=== PATIENT | male | born 1945 | race Caucasian/White ===

== ENCOUNTER 2020-11-11 09:50 | Emergency (ER) | payer OTHER ==
--- OUTSIDE RECORDS SUMMARY | 2020-11-11 09:56 | XMS REPORT | Continuity of Care Document ---
:[address] [facility] t Address [address] [place] [address] Care Team Providers Name Role Phone Jonathan Quevedo MD Primary Care Physician Andrey Stephens Attending Clinician Zaida Kaye Attending Clinician Shirley Sena Attending Clinician CRISTOBAL Attending Clinician Unavailable JUANA Attending Clinician Unavailable MARLON Attending Clinician Unavailable JOAN Attending Clinician Unavailable Victorino Buckner Attending Clinician DERICK Attending Clinician Unavailable Juana Attending Clinician VALVE Attending Clinician Unavailable MARLON Attending Clinician Unavailable Maritza Gamboa Attending Clinician Mikhail Attending Clinician Victorino Buckner Admitting Clinician Juana Admitting Clinician Payers Payer Name Policy Type Policy Number Effective Date Expiration Date S ource Problems Condition Condition Condition Status Onset Resolution Last Treating Co mments Source Name Details Category Date Date Treatment Clinician Date M1.012 - Diagnosis Active 2019-082020-08-03 Memoria PRIMARY 2-14 13:43:00 l OSTEOARTHR M19.012 00:01: Her kaufman ITIS, LEFT - PRIMARY 00 S OSTEOARTHR ITIS, LEFT S Active 08/02/2020 [facility] [place] COMPLETE Diagnosis Active 2019-082020-08-28 M emoria ROTATOR 0-30 11:08:00 l CUFF TEAR COMPLETE 00:00: Her kaufman OR RUPTURE ROTATOR 00 OF CUFF TEAR OR RUPTURE OF Active 0 [facility] M25.572 Diagnosis Active 2019-12-13 Me moria 2- 15:22:00 l M25.572 00:00: Rosalio 00 Active 10/08/2019 [facility] TRANSIENT Diagnosis Active 2018-11-11 Memoria ISHEMIC 2- 21:36:00 l ATTACK/ PT 00:00: Ambrocio n HAS A ST TRANSIENT 00 JU ISHEMIC ATTACK/ PT HAS A ST JU Active 9 [facility] AORTIC Diagnosis Active 2016-082018-10-23 Mem oria STENOSIS 1-16 12:28:00 l AORTIC 00:00: [place] STENOSIS 00 Active 07/05/2017 [facility] PRE Diagnosis Active 2016-082017-07-05 Mem oria ADMIT/*MAC 1-16 15:35:00 l ANESTHESIA PRE 00:00: Ambrocio n */TAVR ADMIT/*MAC 00 PROCEDUR ANESTHESIA */TAVR PROCEDUR Active 07/05/2017 [facility] SOB Diagnosis Active 2016-082017-06-18 Mem oria 0-20 08:58:00 l SOB 00:00: [place] 00 Active 06/08/2017 [facility] I35.0 Diagnosis Active 2017-08-11 Mem oria 7-14 15:37:00 l I35.0 00:00: [place] 00 Active 03/02/2017 [facility] I10 - Diagnosis Active 2015-082016-09-15 Mem oria ESSENTIAL 2-22 16:05:00 l (PRIMARY) I10 - 00:01: Ambrocio navarro HYPERTENSI ESSENTIAL 00 (PRIMARY) HYPERTENSI Active 08/10/2016 [facility] 723 Diagnosis Active 2012-082013-06-09 Mem oria 0-21 19:13:00 l 723 18:00: [place] 00 Active 06/09/2013 [facility] Presence Problem 2019-04-16 Mem oria of cardiac 11:13:02 l pacemaker Presence Her kaufman of cardiac pacemaker 04/16/2019 [facility] Presence Problem 2019-04-16 Mem oria of 11:13:02 l prosthetic Presence He rmdavida heart of valve prosthetic heart valve 04/16/2019 [facility] Bicuspid Problem Resolve 2020-08-06 Me moria aortic d 00:42:23 l valve Bicuspid Ambrocio n (disorder) aortic valve (disorder) Resolved Problem 08/06/2020 [facility], [facility] Chronic Problem Resolve 2020-08-06 Mem oria obstructiv d 00:42:23 l e Chronic Rosalio bronchitis obstructiv (disorder) e bronchitis (disorder) Resolved Problem 08/06/2020 [facility], [facility] Benign Problem Resolve 2020-08-06 Tank ike prostatic d 00:42:23 l hyperplasi Benign Herm davida a prostatic (disorder) hyperplasi a (disorder) Resolved Problem 08/06/2020 [facility] Anemia Problem Resolve 2020-08-06 Tank ike (disorder) d 00:42:23 l Anemia Rosalio (disorder) Resolved Problem 08/06/2020 [facility] Aortic Problem Resolve 2020-08-06 Tank ike valve d 00:42:23 l stenosis Aortic Ambrocio n (disorder) valve stenosis (disorder) Resolved Problem 08/06/2020 [facility] Type B Problem Resolve 2020-08-06 [place] i[place] viral d 00:42:23 l hepatitis Type B Jory nn (disorder) viral hepatitis (disorder) Resolved Problem 08/06/2020 2000, pt states completed treatment [facility] Hypertensi Problem Active 2020-08-06 M emoria ve 00:42:23 l disorder, Rosalio systemic Hypertensi arterial ve (disorder) disorder, systemic arterial (disorder) Active Problem 08/06/2020 [facility] Atrial Problem Active 2020-08-06 Memor ia fibrillati 00:42:23 l on Atrial Rosalio (disorder) fibrillati on (disorder) Active Problem 08/06/2020 [facility] Cardiac Problem Active 2020-08-06 Tank ike pacemaker 00:42:23 l in situ Cardiac Ambrocio n (finding) pacemaker in situ (finding) Active Problem 08/06/2020 [facility] Chronic Problem Active 2020-08-06 Tank ike obstructiv 00:42:23 l e lung Chronic Rosalio disease obstructiv (disorder) e lung disease (disorder) Active Problem 08/06/2020 [facility] Rheumatoid Problem Active 2020-08-06 M emoria arthritis 00:42:23 l (disorder) Ambrocio n Rheumatoid arthritis (disorder) Active Problem 08/06/2020 [facility] Chronic Problem Active 2020-04-29 Tank ike obstructiv 02:45:03 l e Chronic [place] pulmonary obstructiv disease, e unspecifie pulmonary d COPD disease, type unspecifie d COPD type Active Problem 04/29/2020 [facility] CERVICAL Diagnosis Active 2013-06-09 M emoria SPINAL 19:13:00 l STENOSIS CERVICAL Herm davida SPINAL STENOSIS Active [facility] History of History of Problem Resolve [facility] Heart Heart d ity of disease disease [place] [facility] Shortness Shortness Problem Active Uni vers of breath of breath ity of [place] [facility] Essential Essential Problem Active Uni vers (primary) (primary) [place] of hypertens[place] hypertens[place] [facility] Transient Transient Problem Active Uni vers ischemic ischemic ity of attack attack [place] [facility] Carpal Carpal Problem Active 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 [place] [facility] History of Past Illness Condition Condition Condition Status Onset Resolution Last Treating Co mments Source Name Details Category Date Date Treatment Clinician Date Transient Problem 2019-04-16 2019-04-16 Memoria cerebral 2-13 11:13:02 11:13:02 l ischemic 03:49: [place] attack, Transient 08 unspecifie cerebral d ischemic attack, unspecifie d 10/02/2018 04/16/2019 [facility] Allergies, Adverse Reactions, Alerts Allergy Allergy Status Severity Reaction(s) Onset Inactive Treating Comm ents Source Name Type Date Date Clinician No Known DA Active [facility] -[facility] No Known DA Active [facility] Allergie 3 [place] 00:00: [facility] 00 l [facility] No Known No Known Active Memori a Medicati Medicati l on on [place] Allergie Allergie s s Family History Family Member Diagnosis Comments Start Date Stop Date Source Father Family history of Univers ity of cerebrovascular [place] [facility] accident (CVA) Social History Social Habit Start Date Stop Date Quantity Comments Source Sex Assigned At [facility] Social History 2020-07-22 2020-07-22 [facility] 16:30:24 16:30:24 Tobacco use and 2016-08-18 2016-08-18 Never used [facility] remberto - exposure 00:00:00 00:00:00 [facility] Alcohol intake 2016-08-18 2016-08-18 Current [facility] Mohan es - 00:00:00 00:00:00 non-drinker of Medical nter alcohol (finding) History of 2006-08-20 Current smoker [facility] es - tobacco use [facility]00[facility] [facility] Status Start Date Stop Date Source Social History 2017-07-10 11:54:40 2017-07-10 11:54:40 [facility] Medications Ordered Filled Start Stop Current Ordering Indication Dosage Frequency Signature Comments Components Source Medication Medication Date Date Medication? Clinician (SIG) Name Name ceFAZolin + 2019-08 Yes Notes: Tank ike sterile 09-22 (Same As: l water 20 mL 23:00: Ancef, Herm davida 00 Kefzol) MEDICATION WASTE Product Size: 1000 mg Product Wasted: ___ mg clopidogrel 2019-08 Yes 75 mg = 1 M emoria 75 mg oral 2-03 tab, PO, l tablet 16:24: Daily, Rosalio 00 last dose 07/30/20 per MD, # 30 tab, 0 Refill(s) Albuterol 2019-08 Yes INHALATION Me moria (Eqv-ProAir 2-03 , PRN, 0 l HFA) 90 16:20: Refill(s) Jory nn mcg/inh 00 inhalation aerosol apixaban 5 2019-08 Yes 5 mg, PO, Me moria MG Oral 2-03 Q12H, last l Tablet 16:20: dose Rosalio [Eliquis] 00 08/01/20 at 1800 per MD, tab, 0 Refill(s), For Atrial Fibrilatio n lisinopril 2019-08 Yes 20 mg = 1 Me moria 20 mg oral 2-03 tab, PO, l tablet 16:20: BID, # 30 Ambrocio n 00 tab, 0 Refill(s) Anoro 2019-08 Yes 1 puff, Memoria Ellipta 2-03 INHALER, l 62.5 mcg-25 16:20: PRN, # 1 He rmann mcg 00 ea, 3 inhalation Refill(s) powder Clopidogrel Clopidogrel 2017-08 Yes HAJA 1 QD TAKE 1 Univers Bisulfate Bisulfate 2-28 JUANA M.D. TABLET ity of 75 MG Oral 75 MG Oral 00:00: DAILY. [place] Tablet Tablet 00 Physici ans Aspirin EC Aspirin EC 2017-08 Yes HAJA TAKE ONE Univers Low Low 2-26 JUANA M.D. TABLET BY ity of Strength 81 Strength 81 00:00: MOUTH [place] MG Oral MG Oral 00 DAILY Physici Tablet Tablet ans Delayed Delayed Release Release IDS med 2016-08 No 10 mg, 1 Memori a 1-23 tab, l 15:00: Route: PO, Rosalio 00 Drug form: TAB, Daily, Start date: 07/12/17 9:00:00 [employer], Duration: 30 day, Stop date: 08/10/17 9:00:00 [employer] Miralax 2016-08 No 17 gm, Memoria 1-22 Route: PO, l 23:00: BID, [place] 00 Dosing Weight 58.636, kg, Start date: 07/11/17 17:00:00 [employer], Duration: 30 day, Stop date: 08/10/17 9:00:00 [employer] aspirin 81 2016-08 Yes 81 mg = 1 Me moria mg tablet, 1-22 tab, PO, l enteric 21:42: Daily, # Amrbocio n coated 00 30 tab, 1 Refill(s) tiotropium 2016-08 Yes 18 Memoria 1-22 microgram, l 21:39: INHALATION [place]ahan 00 , RDaily, 0 Refill(s) tamsulosin 2016-08 Yes 0.4 mg = 1 M emoria 0.4 mg oral 1-22 cap, PO, l capsule 21:39: BID, 0 [place] 00 Refill(s) Acetaminoph 2016-08 Yes 1 tab, PO, Memoria en 300 MG / -22 Q6H, PRN l Codeine 21:39: Pain Score Herm davida Phosphate 00 4-6, 0 60 MG Oral Refill(s) Tablet [Tylenol with Codeine #4] aspirin 81 2016-08 No 81 mg = 1 Me moria mg tablet, 09-10 tab, PO, l enteric 21:39: Daily, 0 Ambrocio n coated 00 Refill(s) Meclizine 2016-08 No 25 mg, Memori a 09-10 Route: PO, l 15:04: Drug form: Rosalio 00 TAB, TID, Dosing Weight 58.636, kg, PRN Dizziness, Start date: 07/11/17 9:04:00 [employer], Duration: 30 day, Stop date: 08/10/17 9:03:00 [employer] Dulcolax 2016-08 No 10 mg, Memoria Laxative 09-10 Route: AR, l 15:04: Drug form: [place] SUPP, Daily, Dosing Weight 58.636, kg, PRN Constipati on, Start date: 07/11/17 9:04:00 [employer], Duration: 30 day, Stop date: 08/10/17 9:03:00 [employer] Lisinopril 2016-08 No Notes: Memor ia 09-10 (Same as: l 15:00: Prinivil, [place] Zestril) pantoprazol 2016-08 No Notes: Tank ike e -22 Tablet l 15:00: should not [place] 00 be chewed or crushed. (Same as: Protonix) POLYETHYLEN 2016-08 No Notes: Tank ike E GLYCOL - Dissolve l 3350 15:00: in 8 oz of [place] 00 water or juice. (Same as: Miralax) Spiriva 2016-08 No Notes: Memoria 09-10 (Same As: l 14:00: Spiriva) Rosalio 00 heparin 2016-08 No Notes: Memoria 09-10 porcine l 03:00: heparin Rosalio 00 Docusate 2016-08 No Notes: Memoria 09-10 (Same as: l 03:00: Colace) [place] (Do Not Crush) Cefazolin 2016-08 No Notes: Memori a 09-10 (Same As: l 00:00: Ancef, Rosalio 00 Kefzol) MEDICATION WASTE Product Size: 1000 mg Product Wasted: ___ mg Dulera 200 2016-08 No 2 puff, Tank ike mcg-5 09-09 Route: l mcg/inh 23:00: INHALER, Ambrocio n inhalation 00 Drug Form: aerosol AERO, Dosing Weight 58.636, kg, BID, Start date: 07/10/17 17:00:00 [employer], Duration: 30 day, Stop date: 08/09/17 16:59:00 [employer] budesonide- 2016-08 No Notes: Tank ike formoterol 09-09 (Same as: l 23:00: Symbicort) WASTE: Aerosol - Return to Pharmacy Flomax 2016-08 No Notes: Memoria 09-09 (Same As: l 23:00: Flomax) Rosalio 00 "Do Not Crush" Morphine 2016-08 No Notes: Memoria 09-09 (Same l 22:24: as:MORPhin e Sulfate) Acetaminoph 2016-08 No Notes: Do M emoria en 300 MG / 09-09 not exceed l Codeine 21:49: 4gm/day of Herm davida Phosphate acetaminop 60 MG Oral hen. Tablet (Same as: [Tylenol Tylenol with with Codeine #4] Codeine # 4) Tylenol 2016-08 No Notes: Do Memor ia 09-09 not exceed l 21:35: 4 gm/day. Rosalio 00 (Same as: Tylenol) protamine 2016-08 No Route: IV, Me moria (ANES) 09-09 Drug form: l 19:09: INJ, ONCE, Stop date: 07/10/17 13:09:00 [employer] heparin 2016-08 No Route: IV, Tank ike (ANES) 09-09 Drug form: l 18:29: INJ, ONCE, Rosalio Stop date: 07/10/17 12:29:00 [employer] potassium 2016-08 No Notes: Memori a phosphate 09-09 (Same as: l 18:14: K Phosphate. ) 1 mMol phoshate has 1.47 mEq potassium Infuse over 4 hours Magnesium 2016-08 No Notes: Memori a Sulfate 09-09 WASTE: F/P l 18:14: - Sink; E [place] 00 - Municipal Trash Bin potassium 2016-08 No Notes: Memori a phosphate-s 09-09 (Same as: l odium 18:14: Phos-NaK) Rosalio phosphate 00 Each 1.5 250 mg-280 gm pkt has mg-160 mg 250mg oral powder phosphorou for s. Mix reconstitut w/2.5oz ion water and stir. Calcium 2016-08 No Notes: Memoria Carbonate 09-09 (Same As: l 500 MG 18:14: Tums) Rosalio Chewable 00 Calcium Tablet Carbonate 500 mg = 200 mg elemental calcium Dose = mg calcium carbonate ( mg elemental calcium) Calcium 2016-08 No Notes: Memoria Gluconate 09-09 WASTE: F/P l 18:14: - Sink; E [place] - Municipal Trash Bin Magnesium 2016-08 No Notes: Memori a Oxide 09-09 (Same as: l 18:14: Mag-Ox [place] 00 400) Magnesium oxide [id number] g elemental magnesium Dose=____m g magnesium oxide (___mg elemental magnesium) Potassium 2016-08 No Notes: Memori a Chloride 09-09 (Same as: l 18:14: KCL) Rosalio 00 Infuse over 2 hours. sodium 2016-08 No 30 mmol, Memoria phosphate 09-09 10 mL, l 18:14: Route: Rosalio 00 IVPB, PRN, Dosing Weight 58.636, kg, PRN Abnormal Lab Result, Start date: 07/10/17 12:14:00 [employer], Duration: 30 day, Stop date: 08/09/17 12:13:00 [employer], FOR ICU USE ONLY Aspirin 2016-08 No Notes: Do Memor ia 09-09 not crush l 18:14: or chew. [place] 00 (Same As: Ecotrin) Ondansetron 2016-08 No Notes: Tank ike - (Same as: l 18:10: Zofran) Rosalio 00 MEDICATION WASTE Product Size: 4 mg Product Wasted: ___ mg Acetaminoph 2016-08 No Notes: Tank ike en 09-09 Infuse l 18:10: over 15 [place]ahan 00 minutes Do not exceed 4gm/day of acetaminop hen MEDICATION WASTE Product Size: 1000 mg Product Wasted: ___ mg Nicardipine 2016-08 No Notes: Tank ike 09-09 Same as: l 18:10: Cardene Concentrat ion: (0.2 mg /1 ml ) ceFAZolin 2016-08 No Route: IV, Me moria (ANES) 09-09 Drug form: l 18:09: INJ, ONCE, Stop date: 07/10/17 12:09:00 [employer] midazolam 2016-08 No Route: IV, Me moria (ANES) 09-09 Drug form: l 18:04: SOLN, ONCE, Stop date: 07/10/17 12:04:00 [employer] ondansetron 2016-08 No Route: IV, Memoria (ANES) 09-09 Drug form: l 18:04: INJ, ONCE, Stop date: 07/10/17 12:04:00 [employer] fentaNYL 2016-08 No Route: IV, Mem oria (ANES) 09-09 Drug form: l 18:04: INJ, ONCE, Stop date: 07/10/17 12:04:00 [employer] vancomycin 2016-08 No Route: IV, M emoria (ANES) 1000 09-09 Drug form: l mg 17:13: INJ, Start date: 07/10/17 11:13:00 [employer], Stop date: 07/10/17 12:13:00 [employer] Sodium 2016-08 No Route: IV, Memor ia Chloride 09-09 Total l 0.9% IV 17:05: Volume: Rosalio (ANE) 250 00 250, Start mL date: 07/10/17 11:05:00 [employer], Stop date: 07/10/17 12:05:00 [employer] Sodium 2016-08 No Route: IV, Memor ia Chloride 09-09 Drug form: l 0.9% IV 17:05: INJ, Start Herm davida (ANES) 100 00 date: mL + 07/10/17 dexmedetomi 11:05:00 dine (ANES) [employer], Stop 200 date: microgram 07/10/17 12:05:00 [employer] Tamsulosin 2016-08 No 0.4 mg = 1 M emoria hydrochlori 09-09 cap, PO, l de 0.4 MG 12:13: BID, # 90 Her kaufman Oral 00 cap, 0 Capsule Refill(s) [Flomax] Spiriva 2016-08 No 18 Memoria 1-21 microgram, l 12:13: INHALATION [place] 00 , BID, # 30 ea, 0 Refill(s) lisinopril 2016-08 No 20 mg = 1 Me moria 20 mg oral 1-21 tab, PO, l tablet 12:13: Daily, # [place] 00 90 tab, 1 Refill(s) Sodium 2016-08 No 250 mL, Memoria Chloride 1-21 250 ml/hr, l 0.9% 12:00: Infuse Rosalio (Bolus) IV 00 Over: 1 hr, Route: IV, 250, Drug form: INJ, ONCALL, Priority: Routine, Dosing Weight 61.364 kg, Start date: 07/10/17 6:00:00 [employer], Duration: 1 doses or times Exparel 2016-08 No Notes: Memoria 1-21 (Same as: l 12:00: Exparel) Rosalio 00 NOT FOR IV use Postoperat alfonso analgesia: Infiltrati on (local): Dose is based on surgical site and volume required to cover the area (in general, the maximum total dose is 266 mg). Bunionecto my: 7 mL into the tissues surroundin g the osteotomy and 1 mL into the subcutaneo us tissue of the surgical site (total dose = 8 mL [106 mg]) Hemorrhoid ectomy: 30 mL (20 mL vial diluted with 10 mL NS) divided and administer ed as 6 injections of 5 mL each (total dose = 30 mL [266 mg]) Sodium 2016-08 No 750 mL, Memoria Chloride 1-21 Rate: 75 l 0.9% IV 750 11:52: ml/hr, Herm davida mL 00 Infuse over: 10 hr, Route: IVPB, Dosing Weight 61.364 kg, Total Volume: 750, Start date: 07/10/17 5:52:00 [employer], Duration: 24 hr, Stop date: 07/11/17 5:51:00 [employer], 1.71, m2 Sodium 2016-08 No 250 mL, Memoria Chloride 1-21 Rate: On l 0.9% 11:52: call for Rosalio (titrate) 00 use with 250 mL blood product administra tion, Dosing Weight 61.364, kg, Route: IVPB, Total Volume: 250, Start Date: 07/10/17 5:52:00 [employer], Duration: 30 day, Stop date: 08/09/17 5:51:00 [employer], Replace Every: 24 hr Spiriva No Notes: Memoria 7-21 (Same As: l 14:00: Spiriva) Streptococc No Notes: Tank ike us 7-21 Shake well l pneumoniae 14:00: prior to Her kaufman serotype 1 00 use (Same capsular as: antigen Prevnar diphtheria 13) [id number] protein conjugate vaccine / Streptococc us pneumoniae serotype 14 capsular antigen diphtheria [id number] protein conjugate vaccine / Streptococc us pneumoniae serotype 18C capsular antigen d Dulera 200 No 2 puff, Tank ike mcg-5 03-09 Route: l mcg/inh 14:00: INHALER, Ambrocio n inhalation 00 Drug Form: aerosol AERO, Dosing Weight 58.227, kg, BID, Start date: 03/09/17 9:00:00 CDT, Duration: 30 day, Stop date: 04/07/17 17:00:00 CDT Bisoprolol No 1 tab, Memor ia Fumarate 5 03-09 Route: PO, l MG / 14:00: Drug Form: [place] Hydrochloro 00 TAB, thiazide Dosing 6.25 MG Weight Oral Tablet 58.227, kg, Daily, Start date: 03/09/17 9:00:00 CDT, Duration: 30 day, Stop date: 04/07/17 9:00:00 CDT budesonide- No Notes: Tank ike formoterol -21 (Same as: l 13:00: Symbicort) WASTE: Aerosol - Return to Pharmacy hydrochloro No Notes: Tank ike thiazide 7-21 (Same as: l 08:00: Hydrodiuri l). Give with food. Zebeta No Notes: Memoria 7-21 (Same As: l 08:00: Zebeta) Cephalexin No Notes: Memor ia 7-21 Take on l 03:15: empty stomach. (Same As: Keflex) Lisinopril No Notes: Memor ia 7-21 (Same as: l 03:00: Prinivil, Zestril) Acetaminoph No Notes: Do M emoria en 300 MG / 03-09 not exceed l Codeine 02:36: 4gm/day of Herm davida Phosphate acetaminop 60 MG Oral hen. Tablet (Same as: [Tylenol Tylenol with with Codeine #4] Codeine # 3) Bisoprolol Yes 1 tab, PO, M emoria Fumarate 5 03-09 Daily, l MG / 01:33: Takes at Rosalio Hydrochloro 0300, # 30 thiazide tab, 0 6.25 MG Refill(s) Oral Tablet Nitroglycer No Notes: Tank ike in 03-08 (Same l 23:21: as:Nitroqu ick, Nitrostat) "Do Not Crush" Sublingual tablet cephalexin Yes 500 mg = 1 M emoria 500 mg oral 03-08 tab, PO, l tablet 19:04: QID, 2 more doses, 0 Refill(s) Dulera 200 Yes 2 puff, Tank ike mcg-5 20 INHALER, l mcg/inh 19:02: BID, # 1 Ambrocio n inhalation 00 ea, 3 aerosol Refill(s) Spiriva Yes 18 Memoria 7-20 microgram, l 19:02: INHALATION Rosalio , Daily, # 30 ea, 0 Refill(s) Dulera 200 No 2 puff, Tank ike mcg-5 -18 INHALER, l mcg/inh 21:39: BID, # 1 Ambrocio n inhalation 00 ea, 3 aerosol Refill(s) tiotropium No 18 Memoria 0.018 7-18 microgram l MG/ACTUAT 21:38: = 1 cap, Herm davida Inhalant 00 INHALATION Powder , BID, Use [Spiriva] two inhalation s of one capsule for each dose, # 30 cap, 1 Refill(s) Lutein Yes 20 mg, PO, Memor ia -18 Daily, 0 l 21:38: Refill(s) Acetaminoph Yes 1 tab, PO, Memoria en 300 MG / 03-06 Q4H, PRN l Codeine 21:37: Pain, 0 Rosalio Phosphate 00 Refill(s) 60 MG Oral Tablet [Tylenol with Codeine #4] Bisoprolol No See Memoria 7-18 Instructio l 21:36: ns, Rosalio 00 5-6.25mg, 0 Refill(s) lisinopril Yes 20 mg = 1 Me moria 20 mg oral 7-18 tab, PO, l tablet 21:36: BID, # 30 Ambrocio n 00 tab, 0 Refill(s) acetaminoph 2015-08 Yes 1{tbl} Q.5D Take [address] en-codeine 2-29 tablet by Luke [facility] - (TYLENOL 15:08: mouth 2 Medica l #3) 300-30 48 (two) Center mg per times tablet daily. cholecalcif 2015-08 Yes 1000U QD Take 1,[address] annemarie, 2-29 Units by [facility] - vitamin D3, 15:08: mouth Medic al 1,000 unit 48 daily. Center capsule coenzyme 2015-08 Yes 100mg QD Take [address] Q10 100 mg 2-29 mg by [facility] - capsule 15:08: mouth Medical 48 daily. Center omega-3 2015-08 Yes 2g Q.5D Take [address] acid ethyl 2-29 by mouth 2 Mohan es - esters 15:08: (two) Medical (LOVAZA) 1 48 times Center gram daily. capsule levofloxaci 2015-08 Yes 500mg QD Take [address] n 2-29 mg by [facility] - (LEVAQUIN) 15:08: mouth Medica l 500 MG 48 daily. Center tablet GENTAMICIN 2015-08 Yes 120mg Inject [address] SULFATE 2-29 mg as [facility] - (GENTAMICIN 15:08: directed Me dical INJ) 48 once One Center time dose on 08-16-16 . lisinopril 2015-08 Yes 10mg Q.5D Take [address] (PRINIVIL,Z 2-29 by mouth 2 Salena kes - ESTRIL) 10 15:08: (two) Medica l MG tablet 48 times Center daily. bisoprolol- 2015-08 Yes 1{tbl} QD Take [address] hydrochloro 2-29 tablet by Mohan es - thiazide 15:08: mouth Medical (ZIAC) 48 daily. Center 5-6.25 mg per tablet Lisinopril Lisinopril Yes R.N. 1 QD TAKE 1 U nivers 20 MG Oral 20 MG Oral TABLET i ty of Tablet Tablet DAILY [place] [facility] Tylenol Tylenol Yes R.N. Q0.3333D TAKE 1 Uni vers with with TABLET 3 ity of Codeine #3 Codeine #3 TIMES [place] 300-30 MG 300-30 MG DAILY P hysici Oral Tablet Oral Tablet NEEDED FOR ans PAIN. Vital Signs Vital Name Observation Time Observation Value Comments Source Height 2020-07-22 170.18 cm [facility] n 16:27:00 Weight 2020-07-22 [facility] n 16:27:00 BMI Calculated 2020-07-22 [facility] davida 16:27:00 Systolic (mm Hg) 2018-09-26 [facility] rmann 19:05:00 Diastolic (mm Hg) 2018-09-26 [facility] ermann 19:05:00 Systolic (mm Hg) 2018-09-26 [facility] rmann 18:42:00 Diastolic (mm Hg) 2018-09-26 [facility] ermann 18:42:00 BP Systolic 2018-08-26 125 mm[Hg] Location: [facility] 10:05:00 Position: [place] [facility] Sitting BP Diastolic 2018-08-26 74 mm[Hg] Location: [facility] 10:05:00 Position: [place] [facility] Sitting Height 2018-08-26 67 [in_us] [facility] 10:05:00 [place] [facility] Weight 2018-08-26 130.1875 [lb_av] [facility] 10:05:00 [place] [facility] Body Mass Index 2018-08-26 20.39 kg/m2 [facility] o f Calculated 10:05:00 [place] [facility] Heart Rate 2018-08-26 63 /min Location: [facility] 10:05:00 Brachial [place] [facility] Artery; BP Systolic 2018-08-09 162 mm[Hg] Location: [facility] [facility] 13:43:[facility] Position: [place] Physician s Sitting BP Diastolic 2018-08-09 83 mm[Hg] [facility] 13:43[facility] Position: [place] Phys[facility] s Sitting Height 2018-08-09 67 [in_us] [facility] 13:43:00 [place] [facility] s Weight 2018-08-09 131.375 [lb_av] [facility] 13:43:00 [place] [facility] Body Mass Index 2018-08-09 20.58 kg/m2 [facility] Calculated 13:43:00 [place] [facility] Heart Rate 2018-08-09 60 /min Location: L Mcintosh of 13:43:00 Radial; [place] Physician s BMI Calculated 2017-10-12 [facility] 14:42:00 Height 2017-10-12 170.18 cm [facility] 14:42:00 Weight 2017-10-12 [facility] 14:42:00 Systolic (mm Hg) 2017-07-11 [facility] 22:00:00 Diastolic (mm Hg) 2017-07-11 [facility] 22:00:00 Temperature Oral 2017-07-11 98.6 F [facility] (F) 22:00:00 Systolic (mm Hg) 2017-07-11 [facility] 19:00:00 Diastolic (mm Hg) 2017-07-11 [facility] 19:00:00 Temperature Oral 2017-07-11 97.6 F [facility] (F) 17:55:00 Systolic (mm Hg) 2017-07-11 [facility] 16:00:00 Diastolic (mm Hg) 2017-07-11 [facility] 16:00:00 Temperature Oral 2017-07-11 98.3 F [facility] (F) 14:54:00 Respitory Rate 2017-07-11 [facility] 13:00:00 Respitory Rate 2017-07-11 [facility] 12:00:00 Respitory Rate 2017-07-11 [facility] 11:00:00 Height 2017-07-10 170.18 cm [facility] 11:52:00 BMI Calculated 2017-07-10 [facility] 11:52:00 Weight 2017-07-10 [facility] 11:52:00 BMI Calculated 2017-06-18 [facility] 13:51:00 Weight 2017-06-18 [facility] 13:51:00 Height 2017-06-18 170.18 cm [facility] 13:51:00 Systolic (mm Hg) 2017-03-09 [facility] 13:00:00 Diastolic (mm Hg) 2017-03-09 [facility] 13:00:00 Respitory Rate 2017-03-09 [facility] 13:00:00 Systolic (mm Hg) 2017-03-09 [facility] 12:00:00 Diastolic (mm Hg) 2017-03-09 [facility] 12:00:00 Respitory Rate 2017-03-09 [facility] 12:00:00 Systolic (mm Hg) 2017-03-09 [facility] 11:00:00 Diastolic (mm Hg) 2017-03-09 [facility] 11:00:00 Respitory Rate 2017-03-09 [facility] 11:00:00 Weight 2017-03-06 [facility] 21:44:00 BMI Calculated 2017-03-06 [facility] 21:44:00 Height 2017-03-06 170.18 cm [facility] 21:44:00 Heart Rate 2017-03-06 [facility] 21:40:00 Temperature Oral 2017-03-06 98.5 F [facility] Vipin rmann (F) 21:40:00 Height 2017-03-06 170.18 cm [facility] 21:35:00 Procedures Procedure Date / Time Performing Clinician Source Performed [UTP] EMG 2018-09-09 00:00:00 Mcintosh o [facility] Physicians EMG/NCS-Arm 2018-08-27 00:00:00 [facility] Physicians [[facility]] LIPID PANEL 2018-08-26 00:00:00 [facility] Physicians [[facility]] HEMOGLOBIN A1c 2018-08-26 00:00:00 [facility] Physicians CT Head/Neck CTA [id number] 2018-08-26 00:00:00 [facility] Physicians MRI Brain wo contrast 2018-08-26 00:00:00 [facility] [address] Physicians Cervical spinal fusion [facility] Decompression of lumbar [facility] spine TURP - Transurethral [facility] resection of prostate Cardiac catheterization [facility] Implantation of cardiac [facility] pacemaker<sup>1</sup> TAVR - Transcatheter [facility] [place] aortic valve replacement<sup>2</sup> History Of Prior Surgery [facility] Physicians History of Aortic Valve [facility] Replacement Physicians Plan of Care Planned Activity Planned Date Details Comments Source Diagnostic Test 2018-09-09 [UTP] EMG [code = [facility] Pending 00:00:00 [UTP] EMG] Physicians Diagnostic Test 2018-09-09 [UTP] EMG [code = [facility] Pending 00:00:00 [UTP] EMG] Physicians Diagnostic Test 2018-08-27 EMG/NCS-Arm [code [facility] Pending 00:00:00 = EMG/NCS-Arm] Physicians Diagnostic Test 2018-08-27 EMG/NCS-Arm [code [facility] Pending 00:00:00 = EMG/NCS-Arm] Physicians Encounters Start End Encounter Admission Attending Care Care Encounter Source Date/Time Date/Time Type Type Clinicians Facility Department ID 2020-10-28 2020-10-28 Outpatient [facility] [id number] [place] 00:00:00 00:00:[address] 2020-08-04 2020-08-[address] [facility] [id number] 10:00:00 10:00:00 Ash Balderas 2020-08-03 2020-08-03 Outpatient Angelo Nano [facility] [id number] 13:36:00 23:59:00 Ash Villalta Andrey 2020-07-31 2020-07-31 Outpatient MHTW MHTW [id number] MHTW 08:00:00 08:00:00 2020-04-28 2020-04-28 Outpatient Pulmonary Pulmonary [id number] eClinic 10:23:00 10:23:00 Critical Critical alWo rks Care and Care and Sleep Sleep 2019-10-15 2019-10-15 Outpatient LINO Kaye [facility] [id number] 09:08:00 23:59:00 Scarlet Sergio Troncoso 2018-09-26 2018-09-26 Outpatient Nathen [facility] [id number] 10:23:00 23:59:00 Anjail Rina [facility] 2018-09-26 2018-09-26 Outpatient Nathen [facility] [id number] 10:23:00 23:59:00 Anjail 05 [facility] 2018-08-26 2018-08-26 DOTTY [facility] [id number] [facility] 10:00:00 10:00:00 t; Damion DELGADO M.D. [place] LAUREN, Physici M.D. [facility] 2018-08-09 2018-08-09 DOTTY Mary [id number] [facility] 12:30:00 12:30:00 t; BOONE ARIAS of [facility] ans 2018-08-09 2018-08-09 Appointmen MARLON, UTP UTP [id number] Univers 11:00:00 11:00:00 t; LILA MASON ity of [facility] ans 2018-04-12 2018-04-12 Appointmen JOAN, UTP UTP [id number] Univers 11:00:00 11:00:00 t; BRAD FRANCO, MATERIALS SCIENTIST it y of BRAD, SAMMI [facility] ans 2017-10-12 2017-10-12 Outpatient Dudley, [facility] [id number] 08:38:00 23:59:00 Car W 24 2017-10-12 2017-10-12 Appointmen JUANA, UTP UTP [id number] Univers 10:30:00 10:30:00 t; JUANA, CLINIC ity of [facility] 2017-08-09 2017-08-09 Appointmen DERICK, UTP UTP [id number] Univers 14:45:00 14:45:00 t; LEO SEPULVEDA, ity Osito BAILEY [facility] 2017-08-09 2017-08-09 Appointmen MARLON, UTP UTP [id number] Univers 14:00:00 14:00:00 t; WIL MASONII ity of [facility] 2017-07-10 2017-07-11 Outpatient Juana, [facility] [id number] 05:41:00 20:25:00 Haja 2017-06-22 2017-06-22 Appointmen VALVE, UTP UTP [id number] Univers 09:45:00 09:45:00 t; VALVE, CLINIC ity of [facility] ans 2017-06-18 2017-06-18 Outpatient Juana, [facility] [id number] 08:51:00 23:59:00 Haja 2017-06-08 2017-06-08 Appointmen VALVE, UTP UTP [id number] Univers 11:45:00 11:45:00 t; VALVE, CLINIC ity of [facility] ans 2017-06-08 2017-06-08 Appointmen MARLON, UTP UTP [id number] Univers 11:30:00 11:30:00 t; MARLON, ECHO1 ity of ECHO1 [place] [facility] ans 2017-03-08 2017-03-09 Outpatient Bee [facility] [id number] 13:17:00 09:24:00 Caden Saritha Salas 2014-12-17 2014-12-17 Outpatient Mikhail [facility] [id number] 14:10:00 23:59:00 [facility] 04 2014-05-21 2014-05-21 Outpatient Mikhail [facility] [id number] 15:21:00 23:59:00 [facility] 2014-02-18 2014-02-18 [facility] [id number] 11:41:00 23:59:00 [facility] 02 2013-06-09 2013-06-09 Outpatient [facility] [id number] Memoria 18:30:00 23:59:00 Rosalio Santamaria The [facility] l [facility] 2013-06-09 2013-06-09 Outpatient [facility] [id number] Memoria 18:30:00 23:59:00 Rosaliodavida Santamaria The 94 l [facility] 2013-06-09 2013-06-09 Outpatient [facility] [id number] Memoria 18:30:00 23:59:00 Callahan Rosalio The 94 l [facility] 2013-06-09 2013-06-09 Outpatient [facility] [id number] Memoria 18:30:00 23:59:00 Rosalio Ottann The 94 l [facility] 2013-06-09 2013-06-09 Outpatient [facility] [id number] Memoria 18:30:00 23:59:00 Rosalio Santamaria The 94 l [facility] [place] [facility] Results Test Description Test Time Test Comments Results Result [facility] e Comments - XR C-SPINE 2-3 2020-10-18 VIEWS 2 18:02:00 [facility] : 1945 Sex: M FAX: Cristo Camarena MD [phone] Lee: E St: REG FAX: Yosi WHITNEYDOC, GENERIC FOR EDM FAX: Rodney Santoro [phone] Patient Name: TRINITY GARZA Unit No: [id number] EXAMS: CPT CODE: [id number] XR C-SPINE 2-3 VIEWS [id number] Location: Cervical spine x-ray exam: 5 views conducted on 10/29/20 with flexion and extension imaging acquired Comparison exam: 10/29/20 CT examination of the cervical spine. CLINICAL HISTORY: Assess for instability. Neck pain. Fusion identified again from C4 to T1. There is again discontinuity of the metallic plate connected to threaded screws identified at C6-C7 felt to be likely enrollment eligibility representative of a fracture through this metallic plate. There however is no instability with flexion and extension imaging. Fusion across the disc spaces appear fairly solid from C4 downwards to C6 and C7-T1. There is however lucency seen associated with the bony plug on the CT exam especially inferiorly at C6-C7 at the level of the fracture through the metallic plate with incomplete incorporation. No definite fanning of the disc space however is seen with flexion and extension imaging. No definite fracture. The atlantoaxial joint is maintained. Prevertebral soft tissues are grossly unremarkable. IMPRESSION: No instability. Fusion changes as noted above. at 1802 Reported and signed by: Roxane Conrad M.D. CC: [facility] GENER[facility] FOR [facility]; Rodney Santoro MATERIALS SCIENTIST Dictated Date/Time: 10/29/2020 (1801)Technologist: Milagros Enciso Transcribed Date/Time: 10/29/2020 (1801) By: [email or web address] Orig Print D/T: S: 10/29/2020 (1804) [facility] Usama NAME: TRINITY GARZA [address] [place] [address] PHYS: RUSTY. Rodney Santoro, [place] [address] : 1945 AGE: 75 SEX: M LOC: OSMAN PHONE #: [phone] EXAM DATE: 10/29/2020 STATUS: REG ER FAX #: [phone] RAD NO: DC Dt: PAGE 1 Signed Report - CT C-SPINE W/O 2020-10-18 CONT 2 14:29:00 [facility] : 1945 Sex: M Patient Name: TRINITY GARZA Unit No: [id number] EXAMS: CPT CODE: [id number] CT C-SPINE W/O CONT 37655 EXAMINATION: - CT C-SPINE W/O CONT COMPARISON: CT scan performed September 09, 2013, and intraoperative x-ray performed October 15, 2013 HISTORY: Neck pain LOCATION CODE: C3 TECHNIQUE: CT of the cervical spine without intravenous contrast. 5 mm axial non-contrast enhanced axial images of the cervical spine were obtained and reviewed in soft tissue and bone windows. Coronal and sagittal reconstructed images were also provided for review. All CT scans are performed using dose optimization techniques as appropriate to a performed exam including one or more of the following: ?Automated exposure control ?Adjustment of the mA and/or kV according to patient size ?Use of iterative reconstruction technique FINDINGS: The cervical vertebral bodies are normal in height and alignment. Patient has undergone prior anterior fusion from C7 to T1. The anterior plate is discontinuous at the level of the inferior aspect of the C6 vertebral body. There is no evidence of malalignment at this area. The plate appears contiguous on the intraoperative radiograph from the prior study. It is unclear if this represents a true failure of the orthopedic hardware or interval revision. No more recent comparisons are available. Gap measures approximately 0.6 mm between the apposing ends of the plate. No acute bony abnormalities are identified. Mild disc bulges are present at C2-3 and C3-4 with disc space during also noted. Significant facet osteoarthropathy is also seen at these levels. At the C2-3 level, facet osteoarthropathy is pronounced on the left and causes moderate narrowing of the left neural foramen. There is bilateral facet osteoarthropathy at C3-4 with moderate to pronounced narrowing of the right neural foramen and moderate narrowing on the left. Facet osteoarthropathy is seen throughout the postsurgical area. The majority of the neural foramina are widely patent. There is mild right-sided narrowing at at the C5-6 level. The cervical spinal cord is not well evaluated on CT images. The odontoid is intact and moderate osteoarthritic changes are seen the articulation of the dens with the anterior arch of C1. The adjacent soft tissue structures are notable for areas of atheromatous plaquing in the vasculature. Limited visualization of intracranial structures shows no significant abnormality. Benign-appearing calcifications are seen in the posterior neck and are likely postsurgical. Presumed pacemaker leads are seen in the left upper chest. Lung apices are clear.. IMPRESSION: PETER Forrester NAME: GREGTRINITY [address] PHYS: Rodney [place], [place] [address] : 1945 AGE: 75 SEX: M LOC: OSMAN PHONE #: [phone] EXAM DATE: 10/29/2020 STATUS: REG ER FAX #: [phone] RAD #: D/C DT PAGE 1 Signed Report (CONTINUED) Patient Name: TRINITY GARZA Unit No: [id number] EXAMS: CPT CODE: [id number] CT C-SPINE W/O CONT 08158 <Continued> Postsurgical and degenerative changes in the cervical spine as detailed above. Anterior fixation plate is discontinuous at the inferior C6 level. It appeared contiguous on the 2013 intraoperative x-rays. Whether this represents hardware failure or changes related to interval revision of the operative site is unclear. at 1429 Reported and signed by: Breana Floyd MD CC: [facility]; Rodney Santoro MATERIALS SCIENTIST Dictated Date/Time: 10/29/2020 (2156) Technologist: Acacia James CTDI: 13.73 DLP: 282.34 Trnscrpt: 10/29/2020 (2013) [email or web address] PETER Forrester NAME: TRINITY GARZA [address] [place] [address] PHYS: RUSTY.Andrzej - Rodney Santoro, [place] [address] : 1945 AGE: 75 SEX: M LOC: GiselERS PHONE #: [phone] EXAM DATE: 10/29/2020 STATUS: REG ER FAX #: [phone] RAD #: D/C DT PAGE 2 Signed Report Patient Name: TRINITY GARZA Unit No: [id number] EXAMS: CPT CODE: [id number] CT C-SPINE W/O CONT 60677 <Continued> Orig Print D/T: S: 10/29/2020 (1432) PETER Forrester NAME: TRINITY GARZA [address] [place] [address] PHYS: [email or web address] - Rodney Santoro, [place] [address] : 1945 AGE: 75 SEX: M LOC: B.ERS PHONE #: [phone] EXAM DATE: 10/29/2020 STATUS: REG ER FAX #: [phone] RAD #: D/C DT PAGE 3 Signed Report IMMUNOLOGY 2020-07-20 Not Detected [facility] 2 (07/31/20 10:15 AM) Jory nn 16:15:00 BLOOD BANK 2020-07-20 Negative (07/31/20 Memori al RESULTS 2 8:42 AM) Callahan 14:42:00 HEMATOLOGY 2020-07-31 14:42:00 Test Item Value Reference Range Interpretation Comme nts PT (test code = PT) 13.5 s 12.0-14.7 [facility] [id number] 14:42:00 Test Item Value Reference Range Interpretation Comments INR (test code = INR) 1.03 1 0.85-1.17 [facility] KxhyxceZGZCVNNIAO5220-12-91 14:42:00 Test Item Value Reference Range Interpretation Comments PTT (test code = PTT) 27.2 s 22.9-35.8 Memorial EunjgrhXGFJDXRQGR9195-53-04 14:42:005.9[facility] HermannHEMATOLOGY 2020-07-31 14:42:004.10[facility] JchlyvtKDOETRQXIA9439-27-34 14:42:0014.4[facility]orial ZspajkuZMINSHOOSV0208-45-23 14:42:0042.8[facility]orial UbinkluDPGKJBQEXB7356-12-86 14:42:09058.5[facility]orial WjcgnjmXLWEXGEJIC4527-50-71 14:42:00 Test Item Value Reference Range Interpretation Comments MCH (test code = MCH) 35.2 pg 27.0-31.0 Memorial IhpycpiPPDEBKUGXJ1326-73-59 14:42:0033.7[facility] HermannHEMATOLOGY 2020-07-31 14:42:0013.1[facility] BqeacpsXSQRPYCIHT7753-00-65 14:42:79004Gkfpyxix HccglkkFMQLONDODX5273-21-96 14:42:008.3[facility]orial CtxqwxhTLYWGBDJKT2461-84-82 14:42:0060.2[facility]orial BtafokxHXZKGTEELL2500-80-47 14:42:0027.5[facility] Rosalio XWNEWOOKWR7158-35-24 14:42:007.5[facility]orial PqwjutkKKGAXEXTOJ0166-76-80 14:42:003.1 Memorial XrggfmxVMTUEJQLWF2310-95-08 14:42:001.7[facility] HermannHEMATOLOGY 2020-07-31 14:42:003.5[facility] EsoodniOKFRRQCZBD6477-49-90 14:42:001.6[facility]orial LtetlxiEAZOHBGIXA7885-93-89 14:42:000.4[facility] FregdieDPXKHSZIJB8086-59-33 14:42:000.2[facility]orial YbhzrqeEUJDNYHHCV6155-81-31 14:42:000.1[facility] Rosalio NPWUVOTVZI7491-23-63 14:42:001+ *ABN*(07/31/20 8:42 AM)[facility] BHURQFKG-I6432-37-23 15:24:00 Test Item Value Reference Range Interpretation Comments TROPONIN-I < 0.015 NG/ML 0.000-0.045 N INTERPRET WITH CAUTION, THIS (test code = VALUE EXCEEDS T HE LOWER TROPI) LIMITOF LINEARI TY VERIFICATION ES TABLISHED BY THE LABORATORY. An elevated troponin value alone is not sufficient todi agnose a myocardial infa rction. Rather, the patient'sclinic al presentation (h istory, physical exam) and ECGshould be used in conj unction with troponin in the diagnostic evaluation of s uspected myocardial infa rction. Aserial samplin g protocol is recommended to facilitate theidentificati on of temporal change s in troponin levelscharacter istic of [place]. ADD-ONCOMPREHENSIVE METABOLIC [id number] 14:42:00 Test Item Value Reference Range Interpretation Comments SODIUM (test code = 138.0 mmol/L 133-144 N NA) POTASSIUM (test code 4.5 mmol/L 3.5-5.1 N = K) CHLORIDE (test code 105 mmol/L 95-105 N = CL) CARBON DIOXIDE (test 33 mmol/L 21-32 H code = CO2) ANION GAP (test code 0.0 GAP calc 4.0-15.0 L = GAP) GLUCOSE (test code = 117 MG/DL 70-110 H GLU) BLOOD UREA NITROGEN 13 MG/DL 7-18 N (test code = BUN) GLOMERULAR 66 estGFR >60 The estimated FILTRATION RATE glomerular (test code = GFR) filtration rate is computed usingpatient ra ce, age, sex, and s liv creatinine. If any of theneeded da ta elements are mi ssing the Laboratory can notcompute an estimation of t he glomerular filtration rate .The GFR value units = ml/min/1.73 met er squared. EstimatedGFR va lues above 60 should be interpreted as >60, not anexact number.--- DRUG DOSAGE ALERT -- - Drug dosage adjustments uti lize different calculationpara meter s. CREATININE (test 1.09 MG/DL 0.55-1.30 N Results may be code = CREAT) depressed if p atient is takingN-Acetylc ystei ne (NAC) and Metamizole (Dipyrone). TOTAL PROTEIN (test 7.4 G/DL 6.4-8.2 N code = PROT) ALBUMIN (test code = 3.8 G/DL 3.4-5.0 N ALB) ALBUMIN/GLOBULIN 1.1 RATIO 1.2-2.2 L RATIO (test code = A/G) CALCIUM (test code = 9.9 MG/DL 8.5-10.1 N CA) BILIRUBIN TOTAL 0.47 MG/DL 0.00-1.00 N (test code = BILT) BILIRUBIN DIRECT 0.16 MG/DL 0.00-0.30 N (test code = BILD) BILIRUBIN INDIRECT 0.31 MG/DL 0.2-1.3 N (test code = BILIND) SGOT/AST (test code 30 Unit/L 15-37 N = AST) SGPT/ALT (test code 15 Unit/L 12-78 N = ALT) ALKALINE PHOSPHATASE 54 Unit/L 45-117 N TOTAL (test code = ALKP) INDEX HEMOLYSIS 1 NORMAL <10 1 NORMAL (test code = MG Index/DL HEMINDEX) INDEX ICTERIC (test 1 NORMAL <2 MG 1 NORMAL code = ICTINDEX) Index/DL INDEX LIPEMIA (test 1 NORMAL <50 1 NORMAL code = LIPINDEX) MG Index/DL [id number] 14:42:00 Test Item Value Reference Range Interpretation Comments LIPASE (test code = LIP) 141 Unit/L 114-286 N COMPREHENSIVE METABOLIC [id number] 14:39:00 Test Item Value Reference Range Interpretation Comments SODIUM (test code = NA) 138.0 mmol/L 133-144 N POTASSIUM (test code = K) 4.5 mmol/L 3.5-5.1 N CHLORIDE (test code = CL) 105 mmol/L 95-105 N CARBON DIOXIDE (test code 33 mmol/L 21-32 H = CO2) ANION GAP (test code = 0.0 GAP calc 4.0-15.0 L GAP) GLUCOSE (test code = GLU) 117 MG/DL 70-110 H BLOOD UREA NITROGEN (test 13 MG/DL 7-18 N code = BUN) CREATININE (test code = MG/DL 0.55-1.30 CREAT) TOTAL PROTEIN (test code G/DL 6.4-8.2 = PROT) ALBUMIN (test code = ALB) 3.8 G/DL 3.4-5.0 N ALBUMIN/GLOBULIN RATIO RATIO 1.2-2.2 (test code = A/G) CALCIUM (test code = CA) 9.9 MG/DL 8.5-10.1 N BILIRUBIN TOTAL (test MG/DL 0.00-1.00 code = BILT) BILIRUBIN DIRECT (test MG/DL 0.00-0.30 code = BILD) BILIRUBIN INDIRECT (test MG/DL 0.2-1.3 code = BILIND) SGOT/AST (test code = Unit/L 15-37 AST) SGPT/ALT (test code = Unit/L 12-78 ALT) ALKALINE PHOSPHATASE Unit/L 45-117 TOTAL (test code = ALKP) INDEX HEMOLYSIS (test 1 NORMAL <10 MG 1 NORMAL code = HEMINDEX) Index/DL INDEX ICTERIC (test code 1 NORMAL <2 MG 1 NORMAL = ICTINDEX) Index/DL INDEX LIPEMIA (test code 1 NORMAL <50 MG 1 NORMAL = LIPINDEX) Index/DL [id number] 14:39:00 Test Item Value Reference Range Interpretation Comments LIPASE (test code = LIP) Unit/L 114-286 - XR CHEST 1 [id number] 14:36:00 [facility] : 1945 Sex: M FAX: Yolanda Olea [phone] Lee: St: PRE Patient Name: TRINITY GARZA Unit No: [id number] EXAMS: CPT CODE: [id number] XR CHEST 1 V 26945 Dictation location: S17. CHEST, FRONTAL VIEW HISTORY: n/v FINDINGS: Since 03/23/20, the lungs remain clear. No consolidation, pleural effusion or pneumothorax. The heart size is normal. The dual lead left pacemaker stable in position. TAVR. Anterior cervical fusion. Thoracic spondylosis. IMPRESSION: No evidence of acute cardiopulmonary disease. at 1436 Reported and signed by: Ramón Nichols MD CC: Yolanda LUCIO Dictated Date/Time: 06/11/2020 (1436)Technologist: Kandace Hurst Transcribed Date/Time: 06/11/2020 (1436) By: [email or web address] Orig Print D/T: S: 06/11/2020 (9035) PETER Forrester NAME: TRINITY GARZA [address] [place] [address] Blvd PHYS: Yolanda Murillo, [place] [address] : 1945 AGE: 75 SEX: M LOC: B.ERS PHONE #: [phone] EXAM DATE: 06/11/2020 STATUS: PRE ER FAX #: [phone] RAD NO: DC Dt: PAGE 1 Signed ReportURINALYSIS [id number] 14:31:00 Test Item Value Reference Range Interpretation Comments UA COLOR (test code = YELLOW DESCRIPT YELLOW COLU) UA APPEARANCE (test code TURBID (1+)HAZY-CLDY CLEAR A = APPU) DESCRIPT UA GLUCOSE DIPSTICK (test NORMAL (0) mg/dL 0 (NORMAL) code = DGLUU) UA BILIRUBIN DIPSTICK NEGATIVE (0.0) mg/dL (NEG) 0 (test code = BILU) UA KETONE DIPSTICK (test NEGATIVE (0) mg/dL (NEG) 0 code = KETU) UA SPECIFIC GRAVITY (test 1.013 SG 1.001-1.035 code = SGU) UA BLOOD DIPSTICK (test 0.50 (2+) mg/dL 0 (NEG) A code = MORENA) UA PH DIPSTICK (test code 7.5 pH UNITS 4.6-8.0 = MARI) UA PROTEIN DIPSTICK (test 30 (1+) mg/dL <30 (1+) A code = PROU) UA UROBILINIOGEN DIPSTICK NORMAL (0) mg/Dl <2.0 (1+) (test code = URO) UA NITRITE DIPSTICK (test NEGATIVE (0) SCREEN NEG code = ERNST) UA LEUKOCYTE ESTERASE 250 Leuk/mcL (NEG) 0 A DIPSTICK (test code = LEUU) UA WBC (test code = WBCU) 30-40 #WBC/HPF 0-3 A UA RBC (test code = RBCU) >100 #RBC/HPF 0-3 A UA BACTERIA (test code = TRACE >0 /HPF NONE-FEW BACU) UA MUCUS (test code = RARE /LPF NONE MUCU) CBC W/AUTO [id number] 14:23:00 Test Item Value Reference Range Interpretation Comments WHITE BLOOD CELL (test code = 6.4 K/mm3 4.1-12.1 N WBC) RED BLOOD CELL (test code = RBC) 3.84 M/mm3 3.8-5.5 N HEMOGLOBIN (test code = HGB) 13.5 G/DL 10.6-15.8 N HEMATOCRIT (test code = HCT) 41.2 % 31.8-47.4 N MEAN CELL VOLUME (test code = 107.3 fL 80.1-101.1 H MCV) MEAN CELL HGB (test code = MCH) 35.2 pg 25.3-35.3 N MEAN CELL HGB CONCETRATION (test 32.8 G/DL 32.7-35.1 N code = MCHC) RED CELL DISTRIBUTION WIDTH 11.9 % 12.2-16.4 L (test code = RDW) RED CELL DISTRIBUTION WIDTH 46.5 fL 35.1-43.9 H (test code = RDW-SD) PLATELET COUNT (test code = PLT) 185 K/mm3 155-337 N MEAN PLATELET VOLUME (test code 9.9 fL 7.6-10.4 N = MPV) GRANULOCYTE % (test code = GR%) 71.6 % 37.8-82.6 N IMMATURE GRANULOCYTE % (test 0.2 % 0.0-2.0 N code = IG%) LYMPHOCYTE % (test code = LY%) 17.9 % 14.1-45.4 N MONOCYTE % (test code = MO%) 5.1 % 2.5-11.7 N EOSINOPHIL % (test code = EO%) 4.0 % 0.0-6.2 N BASOPHIL % (test code = BA%) 1.2 % 0.0-2.6 N NUCLEATED RBC % (test code = 0.0 /100WBC% 0.0-1.0 N NRBC%) GRANULOCYTE # (test code = GR#) 4.59 k/mm3 2.0-13.7 N IMMATURE GRANULOCYTE # (test 0.01 K/mm3 0.00-0.03 N code = IG#) LYMPHOCYTE # (test code = LY#) 1.15 K/mm3 0.6-3.8 N MONOCYTE # (test code = MO#) 0.33 K/mm3 0.11-0.59 N EOSINOPHIL # (test code = EO#) 0.26 K/mm3 0.0-0.4 N BASOPHIL # (test code = BA#) 0.08 K/mm3 0.0-0.1 N NUCLEATED RBC # (test code = 0.00 K/mm3 0.00-0.05 N NRBC#) Coronavirus 2019 nCoV [id number] 22:18:00 Test Item Value Reference Range Interpretation Comments Coronavirus 2019 nCoV Bedside (test Negative Neg code = [id number]) Testing Criteria: [id number] 22:12:00 Test Item Value Reference Range Interpretation Comments ALCOHOL (test code = 184 MG/DL 0-10 H MEDICAL ALCOHOL ALC) RESULTS. SITE W PREPPED WITH BE TADINE. <10 MG/DL ARE CONSIDERED NEGA TIVE. >400 MG/DL MAY BE FATAL.RESULTS F OR MEDICAL USE ONL Y. NOT TO BE USED FOR FORENSIC PURPOSES. BASIC METABOLIC [id number] 22:05:00 Test Item Value Reference Range Interpretation Comments SODIUM (test code = 137.0 mmol/L 133-144 N NA) POTASSIUM (test code 3.2 mmol/L 3.5-5.1 L = K) CHLORIDE (test code 104 mmol/L 95-105 N = CL) CARBON DIOXIDE (test 26 mmol/L 21-32 N code = CO2) ANION GAP (test code 7.0 GAP calc 4.0-15.0 N = GAP) GLUCOSE (test code = 89 MG/DL 70-110 N GLU) BLOOD UREA NITROGEN 11 MG/DL 7-18 N (test code = BUN) CREATININE (test 1.01 MG/DL 0.55-1.30 N Results may be code = CREAT) depressed if patient is takingN-Acetylc yste ine (NAC) and Metamizole (Dipyrone). CALCIUM (test code = 8.4 MG/DL 8.5-10.1 L CA) INDEX HEMOLYSIS 1 NORMAL <10 MG 1 NORMAL (test code = Index/DL HEMINDEX) INDEX ICTERIC (test 1 NORMAL <2 MG 1 NORMAL code = ICTINDEX) Index/DL INDEX LIPEMIA (test 1 NORMAL <50 MG 1 NORMAL code = LIPINDEX) Index/DL [id number] 22:05:00 Test Item Value Reference Range Interpretation Comments TROPONIN-I < 0.015 NG/ML 0.000-0.045 N INTERPRET WITH CAUTION, THIS (test code = VALUE EXCEEDS T HE LOWER TROPI) LIMITOF LINEARI TY VERIFICATION ES TABLISHED BY THE LABORATORY. An elevated troponin value alone is not sufficient todi agnose a myocardial infa rction. Rather, the patient'sclinic al presentation (h istory, physical exam) and ECGshould be used in conj unction with troponin in the diagnostic evaluation of s uspected myocardial infa rction. Aserial samplin g protocol is recommended to facilitate theidentificati on of temporal change s in troponin levelscharacter istic of [place]. BASIC METABOLIC [id number] 22:01:00 Test Item Value Reference Range Interpretation Comments SODIUM (test code = 137.0 mmol/L 133-144 N NA) POTASSIUM (test code 3.2 mmol/L 3.5-5.1 L = K) CHLORIDE (test code 104 mmol/L 95-105 N = CL) CARBON DIOXIDE (test 26 mmol/L 21-32 N code = CO2) ANION GAP (test code 7.0 GAP calc 4.0-15.0 N = GAP) GLUCOSE (test code = 89 MG/DL 70-110 N GLU) BLOOD UREA NITROGEN 11 MG/DL 7-18 N (test code = BUN) CREATININE (test 1.01 MG/DL 0.55-1.30 N Results may be code = CREAT) depressed if patient is takingN-Acetylc yste ine (NAC) and Metamizole (Dipyrone). CALCIUM (test code = 8.4 MG/DL 8.5-10.1 L CA) INDEX HEMOLYSIS 1 NORMAL <10 MG 1 NORMAL (test code = Index/DL HEMINDEX) INDEX ICTERIC (test 1 NORMAL <2 MG 1 NORMAL code = ICTINDEX) Index/DL INDEX LIPEMIA (test 1 NORMAL <50 MG 1 NORMAL code = LIPINDEX) Index/DL [id number] 22:01:00 Test Item Value Reference Range Interpretation Comments TROPONIN-I (test code = TROPI) NG/ML 0.000-0.045 CBC W/O [id number] 21:32:00 Test Item Value Reference Range Interpretation Comments WHITE BLOOD CELL (test code = WBC) 5.5 K/mm3 4.1-12.1 N RED BLOOD CELL (test code = RBC) 3.33 M/mm3 3.8-5.5 L HEMOGLOBIN (test code = HGB) 11.8 G/DL 10.6-15.8 N HEMATOCRIT (test code = HCT) 35.3 % 31.8-47.4 N MEAN CELL VOLUME (test code = MCV) 106.0 fL 80.1-101.1 H MEAN CELL HGB (test code = MCH) 35.4 pg 25.3-35.3 H MEAN CELL HGB CONCETRATION (test 33.4 G/DL 32.7-35.1 N code = MCHC) RED CELL DISTRIBUTION WIDTH (test 12.5 % 12.2-16.4 N code = RDW) PLATELET COUNT (test code = PLT) 165 K/mm3 155-337 N MEAN PLATELET VOLUME (test code = 10.2 fL 7.6-10.4 N MPV) - XR CHEST 1 [id number] 21:29:00 FAX: Yobany Roberson MD [phone] Lee: St: REG Patient Name: TRINITY GARZA Unit No: [id number] EXAMS: CPT CODE: [id number] XR CHEST 1 V [id number] CHEST X-RAY 1 VIEW Dictation Location: N13 CLINICAL HISTORY: chest pain Technique: A single frontal view of the chest was obtained. FINDINGS: There has been prior lower cervical fusion. 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 Aorta is mildly tortuous with atherosclerosis at the arch. Hilar outlines normal. There is mild to moderate cardiac enlargement. There has been valvular replacement. There is a 2-lead cardiac pacemaker. The lungs are clear of infiltrates or suspicious nodules. No pleural effusion or pneumothorax. IMPRESSION: No acute findings. Cardiomegaly, cardiac pacemaker, cardiac valve surgery. at 2128 Reported and signed by: Vidya Medellin M.D. CC: Yobany Roberson MD Dictated Date/Time: 03/23/2020 (2128)Technologist: Lovely Cuello Transcribed Date/Time: 03/23/2020 (2128) By: Sayra Orig Print D/T: S: 03/23/2020 (2131) PETER Forrester NAME: TRINITY GARZA [address] [place] [address] Bl PHYS: SIMAL. - Yobany Roberson [place] [address] :1945 AGE: 75 SEX: M LOC: B.ERS PHONE #: [phone] EXAM DATE: 03/23/2020 STATUS: REG ER FAX #: [phone] RAD NO: DC Dt: PAGE 1 Signed ReportMRI Brain wo contrast [id number] 10:00:00EXAM: MRI BRAIN WITHOUT CONTRASTDATE: 09/26/2018 10:00 CSTINDICATION: transcient ischemic attack - transient ischemic attackCOMPARISON: None.TECHNIQUE: Multiplanar, multisequence MRI of the brain withoutcontrast.IV contrast: None.FINDINGS:Diffusion-weighted images fail demonstrate any recent ischemic change.No prior intracranial hemorrhage or mass effect. Scattered foci of T2/FLAIRhyperintense signal in the supratentorial white matter likely represent mildchronic microangiopathic change. Mild generali zed cerebral volume loss. Nohydrocephalus. The basal cisterns are patent. The major intracranial flow voidsare preserved. Minimal mucosal thickening in the paranasal sinuses.IMPRESSION:No acute intracranial abnormality. No acute infarction.Mild chronic microangiopathic change. Mild generalized cerebral volume loss.--Read by: Jo Espinoza MDDictated Date/time: 09/26/18 14:12Electronically Signed by: Jo Espinoza MD 09/26/1913:17FINAL REPORTUn[facility] PhysiciansTobacco Use Screening 2018-08-26 10:00:00 Test Item Value Reference Range Interpretation Comments Completed (test code = Completed) DONE [facility] PhysiciansCHEM [id number] 07:11:003.1[facility] CHEM LLIJK8376-77-93 07:11:0074[facility]annCHEM THYEH7854-71-41 07:11:003.8 [facility]annCHEM APKWE1186-60-06 07:11:51503Pbctaxna HermannCHEM PANEL 2017-07-11 07:11:90727Zlgtqfxm HermannCHEM ZXJFH2719-73-20 07:11:001.00[facility]annCHEM WFPEP6110-76-98 07:11:0026[facility]annCHEM SOAJC0889-51-75 07:11:008.5[facility]annCHEM XQIBT6654-41-16 07:11:0016[facility]annCHEM VNRAC9844-71-63 07:11:69976Hvjlwszq HermannCHEM MTUTT4627-82-31 07:11:001.9 [facility] IvijzkmXAVVLPTLNP3057-93-32 07:11:00 Test Item Value Reference Range Interpretation Comments PTT (test code = PTT) 32.1 s 22.9-35.8 [facility] HdogpvyHKCKNZFYGL1066-06-63 07:11:00 Test Item Value Reference Range Interpretation Comments PT (test code = PT) 14.3 s 12.0-14.7 [facility] DidbreaKUYWKWHKFW0003-63-76 07:11:001.11[facility] HermannHEMATOLOGY 2017-07-11 07:11:009.2[facility] LyzgoacRUGLFDWGVQ0391-28-32 07:11:08447Wwhncvbg KmsgpdwYAQTYLOQFJ5220-74-87 07:11:0013.0[facility] DkjturlLXPKUIORNQ2239-26-57 07:11:0033.9[facility] YtfzxrzBAZVCZDPPV2384-11-10 07:11:00 Test Item Value Reference Range Interpretation Comments MCH (test code = MCH) 33.6 pg 27.0-31.0 [facility] DknyclcIAANBLRSHF2456-08-48 07:11:0032.7[facility] HermannHEMATOLOGY 2017-07-11 07:11:0011.1[facility] XnuhdqcZQVGQRSVWS2990-29-46 07:11:003.30[facility] KzqklvyCBIFFMBGVL6317-59-48 07:11:0099.2[facility] YashsaqTWERCVBRCZ2086-85-17 07:11:009.2[facility] ZkyygisDBSGCDDIVO1863-80-06 07:11:000.1[facility] YMSCGHKXZP8357-61-70 07:11:000.9[facility] TgpvpxkRYPVRCQYCK7776-53-09 07:11:000.5 [facility] TwjavnvUJWUVFUAVT3236-83-52 07:11:000.1[facility] HermannHEMATOLOGY 2017-07-11 07:11:000.8[facility] LgqojmmZZDGDQQAPO9264-92-36 07:11:007.7[facility] YjlmfdqCLKMGRPTZJ1188-03-10 07:11:0083.0[facility] DtcworgFLGULOCLIO4673-84-20 07:11:009.9[facility] WovewfcECCDJFJXPI0141-75-37 07:11:005.5[facility] NCICWOAVUE8659-11-11 07:11:000.8[facility] HermannPARATHYROID DDLXJAX0496-21-66 07:11:001.14[facility] HermannPARATHYROID ZXUNYKC0620-46-41 07:11:001.18[facility]annCHEM AGALJ9392-77-04 20:03:000.6[facility]annCHEM JHFFJ1853-06-89 20:01:002.9[facility]annCHEM SDUSZ5840-82-59 20:01:002.0[facility] QTWJKTENFKOY4848-52-34 20:01:0012.3[facility] QcdzudsVWIBFEZHLPZY0624-44-39 20:01:0089[facility] YrbxxcmDUFSXYLTJFSE9818-76-90 20:01:02136Jswrpzaq [facility] NFEKJUVHZQUC4255-36-16 20:01:000.79[facility] UhrhjdaXJDWXVHNTGQG0435-92-65 20:01:004.3[facility] GnfemonXWMBMFBMALBM9820-74-90 20:01:0015[facility] BQJODAYZIICL6886-14-66 20:01:98147Himatpqp ZkrfdstREKRHDQUDIRS4410-63-48 20:01:008.7[facility] SxagihxHYXGHXYCGYLQ1738-13-07 20:01:63314Cxeezvgu [facility] EUAUGSLAIBOF0079-88-92 20:01:0025[facility] BmjodmfNVAXIMLRRB0339-38-38 20:01:00 0.4[facility] ZkaeqhvCVBSLBZAFG3328-69-59 20:01:000.8[facility] HermannHEMATOLOGY 2017-07-10 20:01:000.1[facility] IgnrezcKEXNUUYJRN4506-27-50 20:01:001.4[facility] EckwgzhMAUJXUXAAI6879-01-63 20:01:005.5[facility] QjswmemODORPEDBRF0552-56-24 20:01:006.5[facility] JirxwzvFXSDFUVWIF1308-81-69 20:01:000.6[facility] LDOMKYMHHI9456-59-85 20:01:0010.7[facility] WpqnrfiKMYDKLOZFD6923-52-28 20:01:00 81.8[facility] KppzoeoRPNVWQPFKQ5507-17-64 20:01:00 Test Item Value Reference Range Interpretation Comments PTT (test code = PTT) 32.6 s 22.9-35.8 [facility] KetvujgQEGNWCGBAS1239-77-12 20:01:91946Xmfdvfnx HermannHEMATOLOGY 2017-07-10 20:01:00 Test Item Value Reference Range Interpretation Comments Thrombin Time (test code = Thrombin 16.2 s 15.0-21.2 Time) [facility] PbezkxhANUOEZHEYY9210-93-62 20:01:000.71[facility] HermannHEMATOLOGY 2017-07-10 20:01:00 Test Item Value Reference Range Interpretation Comments PT (test code = PT) 14.8 s 12.0-14.7 [facility] SnerqltEAAWMJMJJH7525-48-29 20:01:001.16[facility]annHEMATOLOGY 2017-07-10 20:01:0032.8[facility] IfneoqfXMTWCBQFKJ6862-74-42 20:01:0099.0[facility] AjcqeohBBDAOVEVTZ4877-72-65 20:01:003.31[facility] WejojsbYJINXEVEYR6542-22-38 20:01:0011.1[facility] OmabhmjYNCJZRXOYV6801-20-70 20:01:007.9[facility] TGHZEQUPRC7094-34-68 20:01:0013.0[facility] GaxpadyRZAPFUTWAZ8031-87-14 20:01:00 33.8[facility] YkqbyhbYWSWKPXSCF1065-73-62 20:01:00 Test Item Value Reference Range Interpretation Comments MCH (test code = MCH) 33.5 pg 27.0-31.0 [facility] BulvztaXRGDGETUEN1765-66-70 20:01:009.1[facility] HermannHEMATOLOGY 2017-07-10 20:01:96956Tovlqrmj HermannPARATHYROID KNPKQIR3627-73-14 20:01:001.12 [facility] HermannPARATHYROID PBCCRIG4933-18-78 20:01:001.13[facility] DLIHUYIUQF2040-27-78 18:07:00 Test Item Value Reference Range Interpretation Comments POC Activated Clotting Time (test code 422 s = POC Activated Clotting Time) [facility] HiccksyDNJKNPHAQE4390-25-03 17:59:00 Test Item Value Reference Range Interpretation Comments POC Activated Clotting Time (test code 452 s = POC Activated Clotting Time) [facility] ADBSEIJ4234-39-86 11:58:00Negative (07/10/17 5:58 AM) [facility]annCHEM GXYMJ2701-42-77 11:58:002.2[facility] HermannELECTROLYTES 2017-07-10 11:58:0010.1[facility] RwoozgzRPDFFAQCBHKS7537-27-63 11:58:0015[facility] LjbnfzaENIPODIEEIAC2155-45-35 11:58:001.2[facility] ZtoenvuFXJALYVIXICO4553-62-11 11:58:003.3[facility] QdfipshKDTUNUAWYGJB0345-79-47 11:58:009.7[facility] ASSJNCXECEKP5491-59-20 11:58:0073[facility] GhiijwdQCCYAZDEZLJQ9046-68-83 11:58:00 1.01[facility] RleoqwvALYPKGYHZYQR0105-57-40 11:58:0015[facility] LNDYGSWRZDIW3562-37-52 11:58:61278Yrzqiaoq RddgkwvGSJKRLCECCDG6162-96-62 11:58:004.1[facility] HywygxoHFDUUHSLGUXA7400-43-48 11:58:57689Porzvvzf [facility] IBPNIUKJRKIB0623-26-13 11:58:0031[facility] UgkdenwXQBTOJEFRDSU9790-96-65 11:58:00 140[facility] YchietqLPQDEQNXHFLE5531-50-94 11:58:007.4[facility] KBSULUJABIVW0338-82-78 11:58:0021[facility] SojpivzFSLAJIXJGJML0298-50-79 11:58:00 0.5[facility] AzdgantSNAEYBLQDQQQ9937-43-59 11:58:0019[facility] HermannELECTROLYTES 2017-07-10 11:58:0052[facility] FtszpujUFVYJQTXRELX0491-16-22 11:58:004.1[facility] NkkucbcQRYPSJVBCD6568-37-60 11:58:000.1[facility] LhpuarzDYRXHHFNQE4011-16-50 11:58:000.1[facility] KzphcofEVRBKYFTIC0110-61-87 11:58:000.4[facility] XOXEBAEEBH0469-14-69 11:58:000.8[facility] IdgigzfNWLPFHJWSN6094-53-40 11:58:000.7 [facility] WcbbjysQJHPTNKJNC7524-67-02 11:58:005.8[facility]annHEMATOLOGY 2017-07-10 11:58:001.9[facility] AjigkpkKVVAYXWXGQ5281-51-95 11:58:0011.5[facility] KstkgnxHRMEYKXJKE6132-20-70 11:58:005.3[facility] MxgureiSKSSPEBPMT0134-35-16 11:58:0080.6[facility] CvqedopVXWCZEMNAD3615-77-12 11:58:00 Test Item Value Reference Range Interpretation Comments PT (test code = PT) 12.6 s 12.0-14.7 [facility] FpxbgmuPZCHFNUKKQ0083-39-10 11:58:00 Test Item Value Reference Range Interpretation Comments PTT (test code = PTT) 27.8 s 22.9-35.8 [facility] ThphwlrFAWUKZYRHF0279-72-07 11:58:000.94[facility] HermannHEMATOLOGY 2017-07-10 11:58:0013.4[facility] EjkltuhBCTVWESIIA8002-86-20 11:58:008.4[facility] FfprqenGRDKOYDIRV1420-50-82 11:58:90743Eauucoum LflidyyZFHKANPGJM6018-13-16 11:58:0013.2[facility] AafuttdJOWZGJANME0420-38-50 11:58:0039.1[facility] ZCZGIDRCAC8200-38-22 11:58:00 Test Item Value Reference Range Interpretation Comments MCH (test code = MCH) 33.2 pg 27.0-31.0 [facility] IosqebjKQITNZJDJE3717-98-92 11:58:0098.8[facility] HermannHEMATOLOGY 2017-07-10 11:58:0033.6[facility] JiujdefTZCRTNYBAS5941-39-10 11:58:007.2[facility] DsldaudWOOJSREGIJ2882-91-99 11:58:003.96[facility]annBLOOD BANK RESULTS 2017-07-10 11:52:00Product available (07/10/17 5:52 AM)[facility]BL[facility] INFYPMT2918-77-85 11:52:00Product available (07/10/17 5:52 AM)[facility]annCHEM LMJBK4271-59-46 14:26:0084[facility] HermannCHEM RCHEK3750-52-63 14:26:000.9[facility]annCHEM TCLXO4642-43-00 22:00:0087[facility]annCHEM ZXBTS2249-53-22 22:00:0042[facility]annCHEM WWLTS9551-65-97 22:00:000.4 [facility]annCHEM DQEWT3449-71-22 22:00:006.8[facility]annCHEM PANEL 2017-03-06 22:00:003.8[facility]annCHEM SQOXK4645-88-66 22:00:0024[facility]annCHEM DVTVP1773-84-78 22:00:0018[facility]annCHEM BKFDG8746-95-10 22:00:0011[facility]annCHEM DCVHH3405-72-98 22:00:57723Ikmqojmu HermannCHEM SOJEV4245-69-91 22:00:004.0[facility]annCHEM IFEKH7559-51-09 22:00:28447 [facility]annCHEM PXYJH0315-06-45 22:00:000.84[facility]annCHEM PANEL 2017-03-06 22:00:009.0[facility] HermannCHEM SFPJH0444-70-44 22:00:0031[facility]annCHEM RWDRZ7993-53-82 22:00:21003Mxdfncvn HermannCHEM EPQZM5339-68-92 22:00:0013[facility] HermannCHEM WQKNC6210-87-31 22:00:003.0[facility]annCHEM NSVGZ1762-37-01 22:00:001.3[facility] HermannCHEM NDZVU2408-15-91 22:00:0010.0 [facility] QgejmiyYVKQHHNWOY1239-62-01 22:00:0071.6[facility] HermannHEMATOLOGY 2017-03-06 22:00:0018.7[facility] GrvijetMIRLLYQLTR0962-96-71 22:00:001.4[facility] FdmzlldSNGYCPNKRF7012-76-73 22:00:000.8[facility] RaxdutkRJMKZGWYYO8767-39-11 22:00:007.5[facility] TtbhrqsUALDPZUTER5577-80-21 22:00:001.2[facility] CZBQEIWFZG3625-05-15 22:00:004.6[facility] OkaobpjVTMWXBECEU9414-39-59 22:00:000.5 [facility] WwwyrqaIRNBWFZVUD3891-67-33 22:00:000.1[facility]annHEMATOLOGY 2017-03-06 22:00:000.1[facility] AtjvaamUXADZENQXU1114-73-79 22:00:00 Test Item Value Reference Range Interpretation Comments PT (test code = PT) 14.1 s 12.0-14.7 [facility] OkrbzbiENKCYUQVFT5108-70-67 22:00:00 Test Item Value Reference Range Interpretation Comments PTT (test code = PTT) 28.3 s 22.9-35.8 [facility] IdrujqpJGLHSFXUGN7801-83-89 22:00:001.07[facility] HermannHEMATOLOGY 2017-03-06 22:00:0012.8[facility] QoqqbdyMKWWVUCYDW8118-85-55 22:00:35604Qoxsauzn QwvgptvVOYKBTNPVX9080-10-66 22:00:008.7[facility] IlfhffnAMZFBOHEHF1934-69-42 22:00:00 Test Item Value Reference Range Interpretation Comments MCH (test code = MCH) 33.6 pg 27.0-31.0 [facility] FbvbhlcAUAPAPBLRW8025-54-85 22:00:0033.9[facility] HermannHEMATOLOGY 2017-03-06 22:00:006.4[facility] RspeedaDEXKPPGZVE4080-94-67 22:00:0012.5[facility] CkpqoofXETPTPKZDI2875-67-07 22:00:003.73[facility] ByylrigBEPQPIJYJU1623-39-48 22:00:0099.2[facility] SeberaoILHDVOUVGP4281-58-78 22:00:0037.0[facility] JVRNTI3295-49-50 22:00:009[facility] PkjuhkxECTOZT5182-24-61 22:00:92460Nibibdrp TiadfkiCYJFOO4976-75-02 22:00:47257Iwhxpabu RzqjletHSBCIW8419-28-74 22:00:0078 [facility] XtlhqshFOHFOT0722-25-05 22:00:0045[facility] HnqgujgSSKJRB7582-97-77 22:00:002.45[facility] HermannURINE AND NXCBF9995-68-34 22:00:00Not Indicated *NA*(03/06/17 5:00 PM)[facility]annUR[facility] AND NJXJX3240-24-24 22:00:00Negative *NA*(03/06/17 5:00 PM)[facility]annUR[facility] AND QJURW5265-55-49 22:00:00Negative (03/06/17 5:00 PM)[facility]ann[facility] AND JXYQB2479-54-88 22:00:00Negative (03/06/17 5:00 PM)[facility] AND SLQKD9541-96-87 22:00:00Clear (03/06/17 5:00 PM)[facility]ann[facility] AND NYEQC0275-00-42 22:00:00Negative (03/06/17 5:00 PM)[facility] AND CTHQM5156-52-37 22:00:001.009[facility]annURINE AND GOCJU3619-89-84 22:00:006.5[facility]annURINE AND STOOL 2017-03-06 22:00:00Yellow *NA*(03/06/17 5:00 PM)[facility]
[2020-11-11 10:43] LABS: Absolute Lymphocytes (CBC) 1.1 K/uL (0.7-4.9); Basophils % 0.9 % (0-1.3); Hematocrit 38.9 % (39.6-49.0); Lymphocytes % 20.6 % (15.3-44.8); MPV 8.5 fL (7.6-11.3)
[2020-11-11 10:57] LABS: ALT/SGPT 18 U/L (12-78); AST/SGOT 18 U/L (15-37); Albumin 3.9 g/dL (3.4-5.0); Alkaline Phosphatase 53 U/L (45-117); BUN Blood Urea Nitrogen 14 mg/dL (7-18); Bicarbonate 29 mmol/L (21-32); Bilirubin Direct 0.2 mg/dL (0-0.2); Bilirubin Total 0.5 mg/dL (0.2-1.0); Glucose Level 106 mg/dL (74-106); Magnesium 2.1 mg/dL (1.8-2.4); NT PRO-BNP 350 pg/mL (<450); Potassium 3.8 mmol/L (3.5-5.1); Protein, Total 7.1 g/dL (6.4-8.2); Sodium Level 140 mmol/L (136-145); Troponin (Emerg Dept Use Only) < 0.02 ng/mL (0.0-0.045)
[2020-11-11 11:04] LABS: Protime INR 1.24
[2020-11-11 11:50] LABS: SARS-COV-2 RT PCR NEGATIVE (NEGATIVE)
--- NOTE | 2020-11-11 13:27 | EDPHYS ---
Physician Documentation [facility] Name: Иван Vickers Age: 75 yrs Sex: Male : 1945 Arrival Date: 11/11/2020 Time: 09:54 Bed 16 Private MD: ED Physician Luis Alberto Gloria HPI: 11/11 18:11 This 75 yrs old Male presents to ER via Ambulatory with complaints of kdr Shortness Of Breath. 18:11 The patient has shortness of breath at rest, with light activity. Onset: The kdr symptoms/episode began/occurred gradually, 1 week(s) ago. Duration: The symptoms are continuous, may be getting worse but mostly persistent since onset. The patient's shortness of breath is aggravated by exertion, light activity, walking. Associated signs and symptoms: Pertinent positives: non-productive cough, Pertinent negatives: chest pain, fever, hemoptysis, nausea, numbness in extremities. Severity of symptoms: At their worst the symptoms were mild in the emergency department the symptoms are unchanged. The patient has not experienced similar symptoms in the past. The patient has not recently seen a physician. Historical: - Allergies: 10:14 No Known Allergies; ca1 - Home Meds: 10:14 hydrocodone-acetaminophen 7.5-325 mg Oral tab [Active]; tamsulosin 0.4 mg oral cp24 1 ca1 cap once daily [Active]; - PMHx: 10:14 Pacemaker; ca1 - PSHx: 10:14 aortic valve replacement; neck surgery; ca1 - Immunization history:: Client reports receiving the 1st dose of the Covid vaccine, October 2020 Pneumococcal vaccine is up to date, Flu vaccine is up to date. - Social history:: Smoking status: Patient reports the use of cigarette tobacco products, cigars, occasionally. ROS: 18:11 Constitutional: Negative for fever, chills, and weight loss, Eyes: Negative for injury, kdr pain, redness, and discharge, ENT: Negative for injury, pain, and discharge, Neck: Negative for injury, pain, and swelling, Cardiovascular: Negative for chest pain, palpitations, and edema, Abdomen/GI: Negative for abdominal pain, nausea, vomiting, diarrhea, and constipation, Back: Negative for injury and pain, : Negative for injury, bleeding, discharge, and swelling, MS/Extremity: Negative for injury and deformity, Skin: Negative for injury, rash, and discoloration, Neuro: Negative for headache, weakness, numbness, tingling, and seizure activity. Psych: Negative for depression, anxiety, suicide ideation, homicidal ideation, and hallucinations, Allergy/Immunology: Negative for hives, rash, and allergies, Endocrine: Negative for neck swelling, polydipsia, polyuria, polyphagia, and marked weight changes, Hematologic/Lymphatic: Negative for swollen nodes, abnormal bleeding, and unusual bruising. 18:11 Respiratory: Positive for dyspnea on exertion, shortness of breath. Exam: 18:11 Constitutional: This is a well developed, well nourished patient who is awake, alert, kdr and in no acute distress. Head/Face: Normocephalic, atraumatic. Eyes: Pupils equal round and reactive to light, extra-ocular motions intact. Lids and lashes normal. Conjunctiva and sclera are non-icteric and not injected. Cornea within normal limits. Periorbital areas with no swelling, redness, or edema. Neck: Trachea midline, no thyromegaly or masses palpated, and no cervical lymphadenopathy. Supple, full range of motion without nuchal rigidity, or vertebral point tenderness. No Meningismus. Chest/axilla: Normal chest wall appearance and motion. Nontender with no deformity. No lesions are appreciated. Cardiovascular: Regular rate and rhythm with a normal S1 and S2. No gallops, murmurs, or rubs. Normal PMI, no JVD. No pulse deficits. Respiratory: Lungs have equal breath sounds bilaterally, clear to auscultation and percussion. No rales, rhonchi or wheezes noted. No increased work of breathing, no retractions or nasal flaring. Abdomen/GI: Soft, non-tender, with normal bowel sounds. No distension or tympany. No guarding or rebound. No evidence of tenderness throughout. Back: No spinal tenderness. No costovertebral tenderness. Full range of motion. Skin: Warm, dry with normal turgor. Normal color with no rashes, no lesions, and no evidence of cellulitis. MS/ Extremity: Pulses equal, no cyanosis. Neurovascular intact. Full, normal range of motion. Neuro: Awake and alert, GCS 15, oriented to person, place, time, and situation. Cranial nerves II-XII grossly intact. Motor strength 5/5 in all extremities. Sensory grossly intact. Cerebellar exam normal. Normal gait. Psych: Awake, alert, with orientation to person, place and time. Behavior, mood, and affect are within normal limits. Vital Signs: 10:08 BP 141 / 88; Pulse 51; Resp 16 S; Temp 97.1(TE); Pulse Ox 100% on R/A; Weight 58.97 kg ca1 (R); Height 5 ft. 7 in. (170.18 cm) (R); 13:00 BP 138 / 79; Pulse 54; Resp 16 S; Pulse Ox 100% on R/A; jd3 10:08 Body Mass Index 20.36 (58.97 kg, 170.18 cm) ca1 MDM: 13:27 Patient medically screened. kdr 18:11 Data reviewed: vital signs, nurses notes, lab test result(s), EKG, radiologic studies. kdr Counseling: I had a detailed discussion with the patient and/or guardian regarding: the historical points, exam findings, and any diagnostic results supporting the discharge/admit diagnosis, lab results, radiology results, the need for outpatient follow up. 11/11 10:22 Order name: Basic Metabolic Panel [facility] 11/11 10:22 Order name: CBC with Diff; Complete Time: 12:18 [facility] 11/11 10:22 Order name: LFT's; Complete Time: 12:18 [facility] 11/11 10:22 Order name: Magnesium; Complete Time: 12:18 [facility] 11/11 10:22 Order name: NT PRO-BNP; Complete Time: 12:18 [facility] 11/11 10:22 Order name: PT-INR; Complete Time: 12:18 [facility] 11/11 10:15 Order name: EKG; Complete Time: 10:15 [facility] 11/11 10:15 Order name: EKG - Nurse/Tech; Complete Time: 10:20 [facility] 11/11 10:22 Order name: Troponin (emerg Dept Use Only); Complete Time: 12:18 [facility] 11/11 10:22 Order name: XRAY Chest (1 view) [facility] 11/11 10:22 Order name: Basic Metabolic Panel; Complete Time: 12:18 EDMS 11/11 11:55 Order name: COVID-19/FLU A+B; Complete Time: 12:18 EDMS 11/11 10:22 Order name: Cardiac monitoring; Complete Time: 10:30 [facility] 11/11 10:22 Order name: IV Saline Lock; Complete Time: 10: kdr 11/11 10:22 Order name: Labs collected and sent; Complete Time: 10: kdr 11/11 10:22 Order name: O2 Per Protocol; Complete Time: 10: kdr 11/11 10:22 Order name: O2 Sat Monitoring; Complete Time: 10: kdr Administered Medications: No medications were administered Disposition: 11/11/20 13:27 Discharged to Home. Impression: COPD Exacerbation. - Condition is Stable. - Discharge Instructions: Chronic Obstructive Pulmonary Disease, Shortness of Breath, [id number], Chronic Obstructive Pulmonary Disease Exacerbation, [id number]. - Prescriptions for Prednisone 20 mg Oral Tablet - take 1 tablet by ORAL route once daily for 5 days; 5 tablet. Albuterol Sulfate 90 mcg/actuation - inhale 1-2 puff by INHALATION route every 4-6 hours; 1 Inhaler. - Medication Reconciliation Form, Thank You Letter form. - Follow up: Private Physician; When: 2 - 3 days; Reason: If symptoms return, Further diagnostic work-up, Recheck today's complaints, Continuance of care, Re-evaluation by your physician. - Problem is an acute exacerbation. - Symptoms have improved. Signatures: Dispatcher [employer] EDMS Luis Alberto Gloria MD MD kdr Lobo Krueger RN RN jd3 Berna Spence RN RN ca1 Corrections: (The following items were deleted from the chart) 10:25 10:14 PSHx: L shoulder shoulder; ca1 ca1 11:10 10:47 Influenza Screen (A \T\ B)+BA.LAB.BRZ ordered. EDMS EDMS 11:10 10:47 CORONAVIRUS+MR.LAB.BRZ ordered. EDMS EDMS 13:50 13:27 11/11/2020 13:27 Discharged to Home. Impression: COPD Exacerbation. Condition is jd3 Stable. Forms are Medication Reconciliation Form, Thank You Letter, Antibiotic Education, Prescription Opioid Use. Follow up: Private Physician; When: 2 - 3 days; Reason: If symptoms return, Further diagnostic work-up, Recheck today's complaints, Continuance of care, Re-evaluation by your physician. Problem is an acute exacerbation. Symptoms have improved. kdr
--- NOTE | 2020-11-11 13:27 | ER ---
Nurse's Notes [facility] Name: Иван Vickers Age: 75 yrs Sex: Male : 1945 Arrival Date: 11/11/2020 Time: 09:54 Bed 16 Private MD: Diagnosis: COPD Exacerbation Presentation: 11/11 10:08 Chief complaint: Patient states: General weakness, SOB, my heart skips every 7th or 8th ca1 beat started about a week ago. SOB at rest. Reports a little cough. Denies fever. Had the 1st dose of the Pfizer Covid Vaccine 10 days ago. Coronavirus screen: Client denies travel out of the [place] in the last 14 days. fatigue, shortness of breath, Client presents with at least one sign or symptom that may indicate coronavirus-19. Standard/surgical mask placed on the client. Provider contacted for isolation considerations. Ebola Screen: Patient negative for fever greater than or equal to 101.5 degrees Fahrenheit, and additional compatible Ebola Virus Disease symptoms Patient denies exposure to infectious person. Patient denies travel to an Ebola-affected area in the 21 days before illness onset. No symptoms or risks identified at this time. Initial Sepsis Screen: Does the patient meet any 2 criteria? No. Patient's initial sepsis screen is negative. Does the patient have a suspected source of infection? No. Patient's initial sepsis screen is negative. Risk Assessment: Do you want to hurt yourself or someone else? Patient reports no desire to harm self or others. Onset of symptoms was November 11, 2020. 10:08 Method Of Arrival: Ambulatory ca1 10:08 Acuity: RENALDO 3 ca1 Historical: - Allergies: 10:14 No Known Allergies; ca1 - Home Meds: 10:14 hydrocodone-acetaminophen 7.5-325 mg Oral tab [Active]; tamsulosin 0.4 mg oral cp24 1 ca1 cap once daily [Active]; - PMHx: 10:14 Pacemaker; ca1 - PSHx: 10:14 aortic valve replacement; neck surgery; ca1 - Immunization history:: Client reports receiving the 1st dose of the Covid vaccine, October 2020 Pneumococcal vaccine is up to date, Flu vaccine is up to date. - Social history:: Smoking status: Patient reports the use of cigarette tobacco products, cigars, occasionally. Screenin:36 Abuse screen: Denies threats or abuse. Nutritional screening: No deficits noted. jd3 Tuberculosis screening: No symptoms or risk factors identified. Fall Risk Ambulatory Aid- None/Bed Rest/Nurse Assist (0 pts). Gait- Normal/Bed Rest/Wheelchair (0 pts) Mental Status- Oriented to own ability (0 pts). Total Posadas Fall Scale indicates No Risk (0-24 pts). Assessment: 10:34 General: Appears in no apparent distress. comfortable, Behavior is calm, cooperative, jd3 appropriate for age, Reports fatigue for 2-3 days. Pain: Complains of pain in left shoulder and neck Quality of pain is described as aching. Neuro: Level of Consciousness is awake, alert, obeys commands, Oriented to person, place, time, situation. Cardiovascular: Denies chest pain, Capillary refill < 3 seconds Patient's skin is warm and dry. Rhythm is ventricular pacer. Respiratory: Reports shortness of breath at rest cough that is dry, persistent Airway is patent Respiratory effort is even, unlabored, Respiratory pattern is regular, symmetrical, Denies labored breathing. GI: No signs and/or symptoms were reported involving the gastrointestinal system. : No signs and/or symptoms were reported regarding the genitourinary system. EENT: No signs and/or symptoms were reported regarding the EENT system. Derm: Skin is intact, Skin is dry, Skin is normal, Skin temperature is warm. Musculoskeletal: Circulation, motion, and sensation intact. Range of motion: intact in all extremities. 11:01 Reassessment: Patient appears in no apparent distress at this time. Patient and/or jd3 family updated on plan of care and expected duration. Pain level reassessed. Patient is alert, oriented x 3, equal unlabored respirations, skin warm/dry/pink. 13:00 Reassessment: Patient appears in no apparent distress at this time. No changes from jd3 previously documented assessment. Patient and/or family updated on plan of care and expected duration. Pain level reassessed. Patient is alert, oriented x 3, equal unlabored respirations, skin warm/dry/pink. 13:49 Reassessment: Patient appears in no apparent distress at this time. Patient and/or jd3 family updated on plan of care and expected duration. Pain level reassessed. Patient is alert, oriented x 3, equal unlabored respirations, skin warm/dry/pink. even and steady gait upon discharge. Vital Signs: 10:08 BP 141 / 88; Pulse 51; Resp 16 S; Temp 97.1(TE); Pulse Ox 100% on R/A; Weight 58.97 kg ca1 (R); Height 5 ft. 7 in. (170.18 cm) (R); 13:00 BP 138 / 79; Pulse 54; Resp 16 S; Pulse Ox 100% on R/A; jd3 10:08 Body Mass Index 20.36 (58.97 kg, 170.18 cm) ca1 ED Course: 09:54 Patient arrived in ED. am2 09:56 Luis Alberto Gloria MD is Attending Physician. kdr 10:10 Triage completed. ca1 10:14 Arm band placed on right wrist. ca1 10:30 Lobo Krueger RN is Primary Nurse. jd3 10:30 Initial lab(s) drawn, by wi, sent to lab. Inserted saline lock: 22 gauge in left kj1 antecubital area, using aseptic technique. Blood collected. 10:36 Patient has correct armband on for positive identification. Bed in low position. Call jd3 light in reach. Side rails up X2. school lunch monitor on. Pulse ox on. NIBP on. 11:04 XRAY Chest (1 view) In Process Unspecified. EDMS 13:49 No provider procedures requiring assistance completed. IV discontinued, intact, jd3 bleeding controlled, No redness/swelling at site. Pressure dressing applied. Administered Medications: No medications were administered Outcome: 13:27 Discharge ordered by . kdr 13:50 Discharged to home ambulatory. jd3 13:50 Condition: stable 13:50 Discharge instructions given to patient, Instructed on discharge instructions, follow up and referral plans. medication usage, Demonstrated understanding of instructions, follow-up care, medications, Prescriptions given X 2. 13:50 Patient left the ED. jd3 Signatures: Dispatcher [employer] EDMS Luis Alberto Gloria MD MD [facility] Trina Alicea am2 Lobo Krueger RN RN jBerna Murray RN RN ca1 Saadia Negron kj1 Corrections: (The following items were deleted from the chart) 10:25 10:14 PSHx: L shoulder shoulder; ca1 ca1
--- NOTE | 2020-11-11 13:52 | RAD REPORT ---
EXAM DESCRIPTION: Elder Single View11/11/2020 11:04 am CLINICAL HISTORY: Shortness of breath COMPARISON: none FINDINGS: The lungs appear clear of acute infiltrate. The heart is mildly enlarged. Pacemaker leads in place IMPRESSION: No acute abnormalities displayed
[2020-11-11 14:38] VITALS: TEMP 97.1; O2SAT 100
[2020-11-11 14:39] VITALS: BP 138/79
--- NOTE | 2020-11-12 06:46 | EKG ---
Test Date: 2020-11-11 Test Time: 10:19:12 Piece Worker: MARTY MEASUREMENT RESULTS: Intervals: Rate: 68 FL: 206 QRSD: 118 QT: 430 QTc: 457 [place]: P: 89 FL: 206 QRS: -87 T: 85 INTERPRETIVE STATEMENTS: Atrial-sensed ventricular-paced rhythm Abnormal ECG No previous ECG available for comparison Electronically Signed On 11-12-20 06:44:19 CDT by Pj Mckee
== END 2020-11-11 13:50 | disposition home or self-care (01) ==
LOC: ER 09:50
DX: J44.1 Chronic obstructive pulmonary disease with (acute) exacerbation (principal); F17.290 Nicotine dependence, other tobacco product, uncomplicated; Z20.822 Contact with and (suspected) exposure to COVID-19; Z95.0 Presence of cardiac pacemaker; Z95.4 Presence of other heart-valve replacement
CPT/HCPCS: 93005; 85025; 80048; 36415; 83735; 85610; 80076; 84484; 83880; 0240U; 71045; 99284

== ENCOUNTER 2021-08-08 08:15 | Observation (INO) | payer OTHER ==
--- OUTSIDE RECORDS SUMMARY | 2021-08-08 08:19 | XMS REPORT | Continuity of Care Document ---
:1945 Author Organization [facility] t Address [address] [place] [address] Care Team Providers Name Role Phone Jonathan Quevedo Primary Care Physician Roque BENDER Attending Clinician Unavailable PARVEZ JANG Attending Clinician Unavailable Jason LEE Attending Clinician CARLOS RODRIGUEZ Attending Clinician Unavailable MARGY FOOTE Attending Clinician Unavailable Shay LEE Attending Clinician MARY Attending Clinician Unavailable MD Ramo LIAO Attending Clinician Unavailable BRANDY Attending Clinician Unavailable CARLA JANSEN Attending Clinician Unavailable MD JOELLEN BUNCH Attending Clinician Unavailable UJDD Attending Clinician Unavailable CHAD Attending Clinician Unavailable Tay Dixon Attending Clinician Unavailable Germaine Attending Clinician Unavailable CRISTOBAL Attending Clinician Unavailable JUANA Attending Clinician Unavailable MARLON Attending Clinician Unavailable JOAN Attending Clinician Unavailable DERICK Attending Clinician Unavailable MARQUISE Attending Clinician Unavailable MARLON Attending Clinician Unavailable Physician, Primary or Family Admitting Clinician Unavailabl e KNOW Admitting Clinician Unavailable CARLOS RODRIGUEZ Admitting Clinician Unavailable MARGY FOOTE Admitting Clinician Unavailable Shay LEE Admitting Clinician YANNI Admitting Clinician Unavailable MD YANNI E. Admitting Clinician Unavailable HONORIO Admitting Clinician Unavailable Payers Payer Name Policy Type Policy Number Effective Date Expiration Date S valeria Problems Condition Condition Condition Status Onset Resolution Last Treating Co mments Source Name Details Category Date Date Treatment Clinician Date No known No known Disease Unive rs active active ity of problems problems [place] [facility] History of History of Problem Resolve Univers Heart Heart d ity of disease disease [place] [facility] Shortness Shortness Problem Active Uni vers of breath of breath ity of [place] [facility] COPD COPD Problem Active Univers (chronic (chronic ity of obstructiv obstructiv [place] [facility] pulmonary pulmonary ans disease) disease) Essential Essential Problem Active Uni vers (primary) (primary) ity of hypertens[place] hypertens[place] [facility] ans Aortic Aortic Problem Active Univers valve valve ity of stenosis stenosis [place] [facility] Transient Transient Problem Active Uni vers ischemic ischemic ity of attack attack [place] [facility] History of History of Problem Resolve Univers Hypertensi Hypertensi d it y of on on [place] [facility] Carpal Carpal Problem Active 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 [place] [facility] Chronic Problem Active 2020-04-29 Tank ike obstructiv 02:45:03 l e Chronic [place] pulmonary obstructiv disease, e unspecifie pulmonary d COPD disease, type unspecifie d COPD type Active Problem 04/29/2020 Anna Sam Allergies, Adverse Reactions, Alerts Allergy Allergy Status Severity Reaction(s) Onset Inactive Treating Comm ents Source Name Type Date Date Clinician No Known DA Active U [facility] [place] 00:[facility]: [facility] No Known DA Active U [facility] [place] 00:[facility]: [facility] [address] [place] [address] No Known DA Active U 0 [facility]- [place] 00:00: [facility] 00 [facility] Family History Family Member Diagnosis Comments Start Date Stop Date Source Father Family history of Univers ity of cerebrovascular [place] [facility] accident (CVA) Social History Social Habit Start Date Stop Date Quantity Comments Source Exposure to Not sure [facility] SARS-CoV-2 (event) Medica l Branch Tobacco use and 2021-07-13 2021-07-13 Never used Univers[facility] y of [place] exposure 00:00:00 00:00:00 Medical Branch Sex Ass[birth year] [facility] [place] [facility] 00:[facility]:00 Medical Branch Smoking Status Start Date Stop Date Source Tobacco smoking [facility] consumption unknown Former smoker 2021-07-13 00:00:00 2021-07-13 [place] [facility] 00:00:00 Medical Branch Medications Ordered Filled Start Stop Current Ordering Indication Dosage Frequency Signature Comments Components Source Medication Medication Date Date Medication? Clinician (SIG) Name Name ALBUTEROL 2020-08 Yes Inhale. Unive rs SULFATE HFA 1-24 ity of INHALE 13:47: [address] bisoproloL- 2020-08 Yes 1{tbl} Take 1 Un gayathri hydrochloro 1-24 tablet by ity of thiazide 13:47: mouth. [place] 5-6.25 mg Medical per tablet [place] lisinopriL 2020-08 Yes 10mg Take 10 mg U nivers 10 mg 1-24 by mouth. ity of tablet 13:47: [address] Mometasone- 2020-08 Yes 2{puff} Inhale 2 Univers Formoterol 1-24 Puffs. ity of 200-5 13:47: [place] mcg/actuati [address] [place] [address] on inhaler Branch LOVAZA, 2020-08 Yes 2g Take 2 g Univer s omega-3-aci 1-24 by mouth. ity of d ethyl 13:47: [place] esters, [address] [place] [address] gram Branch capsule tamsulosin 2020-08 Yes .4mg Take 0.4 Uni vers 0.4 mg 24 1-24 mg by ity of hr capsule 13:47: mouth. [address] tiotropium 2020-08 Yes Inhale. Univ ers 18 mcg 1-24 ity of inhalation 13:47: [address] levothyroxi 2020-08 Yes Univer s ne 50 mcg 0-04 ity of tablet 00:00: [address] carvediloL Yes Univers 6.25 mg 9-30 ity of tablet 00:00: [address] traMADoL Yes Univers 200 mg 24 9-16 ity of hr tablet 00:00: [address] apixaban 5 Yes 5mg Take 5 mg Un gayathri mg tablet 903 by mouth. ity o f 00:00: [place] 00 Medical Branch atorvastati 0 Yes Univer s n 40 mg 9-03 ity of tablet 00:00: [place] [address] Medical Branch Clopidogrel Clopidogrel 2017-08 Yes ESTEFANY 1 QD TAKE 1 Univers Bisulfate Bisulfate 2-28 JUANA M.D. TABLET ity of 75 MG Oral 75 MG Oral 00:00: DAILY. [place] Tablet Tablet 00 Physici ans Aspirin EC Aspirin EC 2017-08 Yes ESTEFANY TAKE ONE Univers Low Low 2-26 JUANA M.D. TABLET BY ity of Strength 81 Strength 81 00:00: MOUTH [place] MG Oral MG Oral 00 DAILY Physici Tablet Tablet ans Delayed Delayed Release Release Lisinopril Lisinopril Yes R.N. 1 QD TAKE [...] Name Observation Time Observation Value Comments Source BP Systolic 2018-08-26 125 mm[Hg] Location: [facility] 10:05:00 Position: [place] [facility]ician s Sitting BP Diastolic 2018-08-26 74 mm[Hg] Location: [facility] 10:05:00 Position: [place] [facility] s Sitting Height 2018-08-26 67 [in_us] [facility] 10:05:00 [place] [facility] s Weight 2018-08-26 130.1875 [lb_av] [facility] 10:05:00 [place] [facility] s Body Mass Index 2018-08-26 20.39 kg/m2 [place] f Calculated 10:05:00 [place] [facility] Heart Rate 2018-08-26 63 /min Location: L [facility] 10:05:00 Brachial [place] [facility] Artery; BP Systolic 2018-08-09 162 mm[Hg] Location: [facility] 13:43:00 Position: [place] Physician s Sitting BP Diastolic 2018-08-09 83 mm[Hg] Location: [facility] 13:43:00 Position: [place] Physician s Sitting Height 2018-08-09 67 [in_us] [facility] 13:43:00 [place] Phys[facility] s Weight 2018-08-09 131.375 [lb_av] [facility] 13:43:00 [place] [facility] s Body Mass Index 2018-08-09 20.58 kg/m2 [place] Calculated 13:43:00 [place] [facility] Heart Rate 2018-08-09 60 /min Location: L [facility] 13:43:00 Radial; [place] [facility] s Procedures Procedure Date / Time Performing Clinician Source Performed [UTP] EMG 2018-09-09 00:00:00 [facility] Physicians EMG/NCS-Arm 2018-08-27 00:00:00 [facility]icians [[facility]] LIPID PANEL 2018-08-26 00:00:00 [facility] Physicians [[facility]] HEMOGLOBIN A1c 2018-08-26 00:00:00 [facility] Physicians CT Head/Neck CTA [address] 2018-08-26 00:00:00 [facility] Physicians MRI Brain wo contrast 2018-08-26 00:00:00 [facility] [address] Physicians History Of Prior University [facility] ex[facility] Surgery Physicians History of Aortic Val[facility] Re[facility] Physicians Plan of Care Planned Activity Planned Date Details Comments Source Diagnostic Test 2018-09-09 [UTP] EMG [code = [facility] Pending 00:00:00 [UTP] EMG] Physicians Diagnostic Test 2018-09-09 [UTP] EMG [code = [facility] Pending 00:00:00 [UTP] EMG] Physicians Diagnostic Test 2018-08-27 EMG/NCS-Arm [code [facility] Pending 00:00:00 = EMG/NCS-Arm] Physicians Diagnostic Test 2018-08-27 EMG/NCS-Arm [code [facility] Pending 00:00:00 = EMG/NCS-Arm] Physicians Encounters Start End Encounter Admission Attending Care Care Encounter Source Date/Time Date/Time Type Type Clinicians Facility Department ID 2021-05-16 Outpatient DOMINIQUE BENDER CAR 7509 [address] 08:26:40 KALEN 2021-05-07 Outpatient [id number] Memoria 14:21:38 [id number] -[id number] Rosalio [id number] 2021-05-06 Outpatient [id number] Memoria 13:52:36 [id number]-[id number]- A l -[id number] [id number] Rosalio [id number] [id number] 2021-04-29 Outpatient [id number]-D Memoria 13:17:24 [id number] AC-4ABC-A54 3AC-4ABC- A l -[id number]-GT6 [id number] Rosalio [id number] 2021-04-21 Outpatient [id number] Memoria 17:13:25 CEFC-4E6D [id number] EFC-[id number]- A l -RD08-C64 [id number] Rosalio [id number] 2021-01-31 Outpatient DOMINIQUE JANG MHTW 7508 [facility] 08:42:11 [facility] 2020-10-29 Inpatient [facility] BUBBA [id number] [facility] 12:12:00 [id number] [facility] 2020-06-11 Inpatient [facility] BUBBA [id number] [facility] 13:00:00 [id number] [facility] 2020-03-23 Inpatient [facility] BUBBA [id number] [facility] 20:51:00 [facility] 2021-07-27 2021-07-27 Telephone [facility] [id number] Univers 00:00:00 00:00:00 Viviana WEBER 350.1.13.10 Nilson 4.2.7.2.686 Pelon YIN [id number] Nm dical [facility] 2021-05-22 2021-05-23 Outpatient DOMINIQUE BLANCO MED [id number] TW 19:19:00 17:25:00 BRANDY 2021-05-16 2021-05-19 Inpatient U SHAY, MHTW MED [id number] MHTW 12:36:00 17:07:00 KRYSTIN 2021-05-13 2021-05-13 EXT [facility] OP Shay, EXT MSRDP [id number] [place] 00:00:00 00:00:00 Krystin LOCATION 350.1.13.58 [facility] [id number] 2021-05-06 2021-05-07 Outpatient MARY, [facility] [id number] [place] 00:00:00 00:00:00 AHMED 313 Method i 2021-04-29 2021-04-29 Emergency BRANDY, [facility] [id number] [place] 00:00:00 00:00:00 ALEX 158 Method i 2021-04-21 2021-04-23 Outpatient CARLA [place] [id number] [place] 00:00:00 00:00:00 INDERJIT, 794 Metho di IADARA 2021-03-05 2021-03-06 Outpatient AWOBOKUN, [place] [id number] [place] 00:00:00 00:00:00 OLUYEMISI 225 Meth hernán 2021-01-28 2021-01-28 Outpatient [facility] [id number] [place] 00:00:00 00:00:00 858 Method i 2021-01-06 2021-01-06 Outpatient CHAD, RILEY [facility] [id number] [place] 00:00:00 00:00:00 875 Method i 2021-01-03 2021-01-03 Outpatient Elders, [facility] [id number] [facility] 08:30:00 08:30:00 Paolo [id number] [facility] 2020-10-28 2020-10-28 Outpatient [facility] [id number] [place] 00:00:00 00:00:00 005 Method i 2020-07-31 2020-07-31 Outpatient LAINE, MHTW MHTW [id number] MHTW 08:00:00 23:59:00 BRICE 2019-12-29 2019-12-29 Outpatient Germaine, [facility] ENDO [id number] [facility] 10:30:00 10:30:00 Ilyas [id number] [facility] 2018-08-26 2018-08-26 AppointDOTTY [facility] [id number] Univers 10:00:00 10:00:00 t; isidoro DELGADO of [place] JAIN [place] Wendie [facility] 2018-08-09 2018-08-09 Appointmen JUANA, DOTTY UTP [id number] Univers 12:30:00 12:30:00 t; JUANA, CLINIC ity of [facility] ans 2018-08-09 2018-08-09 Appointmen MARLON, UTP UTP [id number] Univers 11:00:00 11:00:00 t; MARLON, [facility] 2018-04-12 2018-04-12 Appointmen JOAN, UTP UTP [id number] Univers 11:00:00 11:00:00 t; BRAD FRANCO, BARIATRIC PHYSICIAN it y of BRAD, [facility] 2017-10-12 2017-10-12 Appointmen JUANA, UTP UTP [id number] Univers 10:30:00 10:30:00 t; JUANA, CLINIC ity of [facility] ans 2017-08-09 2017-08-09 Appointmen DERICK, UTP UTP [id number] Univers 14:45:00 14:45:00 t; LEO SEPULVEDA, miguely of [place] BAILEY M.D. [facility] ans 2017-08-09 2017-08-09 Appointmen MARLON, UTP UTP [id number] Univers 14:00:00 14:00:00 t; MARLON, ECHOII ity of ECHOII [facility] ans 2017-06-22 2017-06-22 Appointmen VALVE, UTP UTP [id number] Univers 09:45:00 09:45:00 t; VALVE, CLINIC it[facility] 2017-06-08 2017-06-08 Appointmen VALVE, UTP UTP [id number] Univers 11:45:00 11:45:00 t; VALVE, CLINIC ity of [facility] ans 2017-06-08 2017-06-08 Appointmen MARLON, DOTTY UTP [id number] Univers 11:30:00 11:30:00 t; MARLON, ECHO1 ity of ECHO1 [place] [facility] ans Results Test Description Test Time Test Comments Results Result Comments Source SARS-CoV-2 (COVID-19) RNA [Presence] in Respiratory sp ecimen by 2021-05-07 04:39:02 MOHINDER with probe detection Test Item Value Reference Range Interpretation Comme nts SARS-CoV-2 (COVID-19) RNA [Presence] in Respiratory Not detected No t-Detected specimen by MOHINDER with probe detection (test code = 89791-4) Whether patient is employed in a healthcare setting (test code = 30962-6) Whether the patient has symptoms related to condition of interest (test code = 27092-9) Patient was hospitalized because of this condition (test code = 40078-1) Whether the patient was admitted to intensive care unit (ICU) for condition of interest (test code = 64385-6) Whether patient resides in a congregate care setting (test code = 72445-7) SARS-CoV-2 (COVID-19) RNA [Presence] in Respiratory specimen by MOHINDER with probe [id number] 04:15:33 Test Item Value Reference Range Interpretation Comments SARS-CoV-2 (COVID-19) RNA Not detected Not-Detected [Presence] in Respiratory specimen by MOHINDER with probe detection (test code = 62291-1) Whether patient is employed in a healthcare setting (test code = 41898-3) Whether the patient has symptoms related to condition of interest (test code = 81276-3) Patient was hospitalized because of this condition (test code = 50676-1) Whether the patient was admitted to intensive care unit (ICU) for condition of interest (test code = 23356-6) Whether patient resides in a congregate care setting (test code = 61440-6) - CT UP EXTREM W/O CONT [id number] 09:13:00 [facility]: TRINITY GARZA : 1945 Sex: M Patient Name: TRINITY GARZA Unit No: [id number] EXAMS: CPT CODE: [id number] CT UP EXTREM W/[place] [address] EXAM: - CT UP EXTREM W/O CONT LT HISTORY: Left shoulderpain Location code:C3 COMPARISON: None available time of interpretation. TECHNIQUE: Multiple axial CT images were obtained of the left shoulder without the use of IV contrast. Coronal and sagittal reformatted images are provided. One or more of the following dose reduction techniques were used: Automated exposure control, adjustmentof the mA and/or kV according to patient size, and/or utilization of iterative reconstruction technique. DLP: 646 mGy-cm. FINDINGS: Severe glenohumeral joint osteoarthritis is present with large osteophytes measuring up to 23 mm inferiorly. Subchondral cyst formation in the humeral head and glenoid is present measuring up to 7 mm in size. There is ukir-ba-ygng appearance was subchondral sclerosis. The humeral head is located. There is no acute fracture or malalignment. Rotator cuff cannot be adequately assessed on CT. Vascular consultation is are present as well as partially imaged left cardiac pacemaker. ACDF changes are partially imaged. IMPRESSION: 1. Severe glenohumeral joint osteoarthritis as detailed above. at 0913 Reported and signed by: Dustin Davies M.D. CC: Paolo Dixon MD; MARIBEL REYNOLDS MD Dictated Date/Time: 01/03/2021 (912) Technologist: Daisy Agarwal CTDI: 28.33 DLP: 646.17 Trnscrpt: 01/03/2021 (912) Cadence.CB5 508 Imaging NAME: TRINITY GARZA [address] [place] [address] PHYS: Paolo Panchal [place], [place] : 1945 AGE: 75 SEX: M [id number] LOC: [email or web address] PHONE #: [phone] EXAM DATE: 01/03/2021 STATUS: REG CLI FAX #: [phone] RAD #: D/C DT PAGE 1 Signed Report Patient Name: TRINITY GARZA Unit No: [id number] EXAMS: CPT CODE: [id number] CT UP EXTREM W/[place] [address] <Continued> Orig Print D/T: S: 01/03/2021 (0077) 350 Imaging NAME: TRINITY GARZA [address] [place] [address] Blvd PHYS: Paolo Panchal MD [place], [place] : 1945 AGE: 75 SEX: M [id number] LOC: [email or web address] PHONE #: [phone] EXAM DATE: 01/03/2021 STATUS: REG CLI FAX #: [phone] RAD #: D/C DT PAGE 2 Signed Report- XR C-SPINE 2-3 [id number] 18:02:00 [facility]: TRINITY GARZA : 1945 Sex: M FAX: Cristo Camarena MD [phone] [place]: E St: REG FAX: Yosi EDDOC, GENERIC FOR EDM FAX: Rodney Santoro [phone] Patient Name: TRINITY GARZA Unit No: [id number] EXAMS: CPT CODE: [id number] XR C-SPINE 2-3 VIEWS 59866 Location: K9Vgotcnte spine x-ray exam: 5 views conducted on 10/29/20 with flexion and extension imaging acquired Comparison exam: 10/29/20 CT examination of the cervical spine. CLINICAL HISTORY: Assess for instability. Neck pain. Fusion identified again from C4 to T1. There is again discontinuity of the metallic plate connected to threaded screws identified at C6-C7 felt to be likely technical sales representatives of a fracture through this metallic plate. Therehowever is no instability with flexion and extension [...] and signed by: Roxane Conrad M.D. CC: [facility] GENERIC FOR EDM; Rodney Santoro BARIATRIC PHYSICIAN Dictated Date/Time: 10/29/2020 (1801)Technologist: Milagros Enciso Transcribed Date/Time: 10/29/2020 (1801) By: [email or web address] Orig Print D/T: S: 10/29/2020 (1804) PEETR Forrester NAME: TRINITY GARZA [address] [place] [address] PHYS: RAYMUNDO - Rodney Santoro, [place] [address] : 1945 AGE: 75 SEX: M LOC: OSMAN PHONE #: [phone] EXAM DATE: 10/29/2020 STATUS: REG ER FAX #: [phone] RAD NO: DC Dt: PAGE 1 Signed Report- CT C-SPINE W/O CONT 2020-10-29 14:29:00 [facility]: TRINITY GARZA : 1945 Sex: M Patient Name: TRINITY GARZA Unit No: [id number] EXAMS: CPT CODE: [id number] CT C-SPINE W/O CONT 87547 EXAMINATION: - CT C-SPINE W/O CONT COMPARISON: [...] from the prior study. It is unclear ifthis represents a true failure of the orthopedic [...] in the left upper chest. Lung apices ar e clear.. IMPRESSION: PETER Forrester NAME: TRINITY GARZA [address] [place] [address] PHYS: Rodney [place], [place] [address] : 1945 AGE: 75 SEX: M LOC: OSMAN PHONE #: [phone] EXAM DATE: 10/29/2020 STATUS: REG ER FAX #: [phone] RAD #: D/C DT PAGE 1 Signed Report (CONTINUED) Patient Name: TRINITY GARZA Unit No: [id number] EXAMS: CPT CODE: [id number] CT C-SPINE W/O CONT 46920 <Continued> Postsurgical and degenerative changes in the cervical spine as detailed above. Anterior fixation plate is discontinuous at the inferior C6 level. It appeared contiguous on the 2013 intraoperative x-rays. Whether this represents hardware failure or changes related to interval revision of the operative site is unclear. at 1009 Reported and signed by: Breana Floyd MD CC: EDDOC GENERIC FOR EDM; Rodney Santoro BARIATRIC PHYSICIAN Dict ated Date/Time: 10/29/2020 (1429) Technologist: Acacia James CTDI: 13.73 DLP: 282.34 Trnscrpt: 10/29/2020 (7911) [email or web address] PETER Forrester NAME: TRINITY GARZA [address] [place] [address] PHYS: [place] [address] : 1945 AGE: 75 SEX: M LOC: GiselERS PHONE #: [phone] EXAM DATE: 10/29/2020 STATUS: REG ER FAX #: [phone] RAD #: D/CDT PAGE 2 Signed Report Patient Name: TRINITY GARZA Unit No: [id number] EXAMS: CPT CODE: [id number] CT C-SPINE W/O CONT 05256 <Continued> Orig Print D/T: S: 10/29/2020 (2773) PETER Forrester NAME: TRINITY GARZA [address] [place] [address] PHYS: RAYMUNDO - Rodney Santoro, [place] [address] : 1945 AGE: 75 SEX: M ACCT NO: B [id number] LOC: GiselERS PHONE #: [phone] EXAM DATE: 10/29/2020 STATUS: REG ER FAX #: [phone] RAD #: D/C DT PAGE 3 Signed [id number] 15:24:00 Test Item Value Reference Range Interpretation [...] change s in troponin levelscharacter istic of [place]. ADD-ONCOMPREHENSIVE METABOLIC [id number] 14:42:00 Test Item Value Reference Range Interpretation [...] 1 NORMAL code = LIPINDEX) MG Index/DL [id number] 14:42:00 Test Item Value Reference Range Interpretation Comments LIPASE (test code = LIP) 141 Unit/L 114-286 N COMPREHENSIVE METABOLIC [id number] 14:39:00 Test Item Value Reference Range Interpretation [...] <50 MG 1 NORMAL = LIPINDEX) Index/DL [id number] 14:39:00 Test Item Value Reference Range Interpretation Comments LIPASE (test code = LIP) Unit/L 114-286 - XR CHEST 1 [id number] 14:36:00 [facility]: TRINITY GARZA : 1945 Sex: M FAX: Yolanda Olea [phone] Pierce: [address] St: PRE Patient Name: TRINITY GARZA Unit No: [id number] EXAMS: CPT CODE: [id number] XR CHEST 1 V 34307 Dictation location: S17. CHEST, FRONTAL VIEW HISTORY: [...] By: [email or web address] Orig Print D/T: S: 06/11/2020 (6708) PETER Forrester NAME: TRINITY GARZA [address] PHYS: Yolanda [place], [place] [address] : 1945 AGE: 75 SEX: M LOC: B.ERS PHONE #: [phone] EXAM DATE: 06/11/2020 STATUS: PRE ER FAX #: [phone] RAD NO: DC Dt: PAGE 1 Signed ReportURINALYSIS [id number] 14:31:00 Test Item Value Reference Range Interpretation [...] = RARE /LPF NONE MUCU) CBC W/AUTO [id number] 14:23:00 Test Item Value Reference Range Interpretation [...] K/mm3 0.00-0.05 N NRBC#) Coronavirus 2019 nCoV [id number] 22:18:00 Test Item Value Reference Range Interpretation Comments Coronavirus 2019 nCoV Bedside (test Negative Neg code = [id number]) Testing Criteria: [id number] 22:12:00 Test Item Value Reference Range Interpretation Comments ALCOHOL (test code = 184 MG/DL 0-10 H MEDICAL ALCOHOL ALC) RESULTS. SITE W PREPPED WITH BE TADINE. <10 MG/DL ARE CONSIDERED NEGA TIVE. >400 MG/DL MAY BE FATAL.RESULTS F OR MEDICAL USE ONL Y. NOT TO BE USED FOR FORENSIC PURPOSES. BASIC METABOLIC [id number] 22:05:00 Test Item Value Reference Range Interpretation [...] MG 1 NORMAL code = LIPINDEX) Index/DL [id number] 22:05:00 Test Item Value Reference Range Interpretation [...] change s in troponin levelscharacter istic of [place]. BASIC METABOLIC [id number] 22:01:00 Test Item Value Reference Range Interpretation [...] MG 1 NORMAL code = LIPINDEX) Index/DL [id number] 22:01:00 Test Item Value Reference Range Interpretation Comments TROPONIN-I (test code = TROPI) NG/ML 0.000-0.045 CBC W/O [id number] 21:32:00 Test Item Value Reference Range Interpretation [...] 7.6-10.4 N MPV) - XR CHEST 1 [id number] 21:29:00 FAX: Yobany Roberson MD [phone] [place]: E St: REG Patient Name: TRINITY GARZA Unit No: [id number] EXAMS: CPT CODE: [id number] XR CHEST 1 V 78284 CHEST X-RAY 1 VIEW Dictation Location: N13 [...] Lovely Cuello Transcribed Date/Time: 03/23/2020 (2128) By: [email or web address] Orig Print D/T: S: 03/23/2020 (2131) [facility] Usama NAME: TRINITY GARZA [address] PHYS: BENNY. Yobany [place], [place] [address] :1945 AGE: 75 SEX: M LOC: B.ERS PHONE #: [phone] EXAM DATE: 03/23/2020 STATUS: REG ER FAX #: [phone] RAD NO: DC Dt: PAGE 1 Signed ReportMRI Brain wo contrast [id number] 10:00:00EXAM: MRI BRAIN WITHOUT CONTRASTDATE: 09/26/2018 10:00 CSTINDICATION: transcient ischemic attack - transient ischemic attackCOMPARISON: None.TECHNIQUE: Multiplanar, multisequence MRI of the brain withoutcontrast.IV contrast: None.FINDINGS:Diffusion-weighted images fail demonstrate any recent ischemic change.No prior intracranial hemorrhage or mass effect. Scattered foci of T2/FLAIRhyperintense signal in the supratentorial white matter likely represent mildchronic microangiopathic change. Mild generalized cerebral volume loss. Nohydrocephalus. The basal cisterns are patent. The major intracranial flow voidsare preserved. Minimal mucosal thickening in the paranasal sinuses.IMPRESSION:No acute intracranial abnormality. No acute infarction.Mild chronic microangiopathic change. Mild generalized cerebral volume loss.--Read by: Jo Espinoza MDDictated Date/time: 09/26/18 14:12Electronically Signed by: Jo Espinoza MD 09/26/1913:17FINAL REPORTUnSpanish Fork Hospital PhysiciansTobacco Use [id number] 10:00:00 Test Item Value Reference Range Interpretation Comments Completed (test code = Completed) DONE [facility]
[2021-08-08] MEDS ORDERED: NA CHLORIDE 0.9% 1,000 ML ONE (08:31)
--- NOTE | 2021-08-08 09:09 | RAD REPORT ---
EXAM DESCRIPTION: RAD - Chest Single View - 08/08/2021 9:03 am CLINICAL HISTORY: COUGH COMPARISON: Chest Single View dated 11/11/2020 FINDINGS: Lines: Pacemaker. Lungs: No evidence of edema or pneumonia. Pleural: No significant pleural effusions or pneumothorax. Cardiac: The heart size is within normal limits. Aortic valve prosthesis. Bones: No acute fractures. Other: IMPRESSION: No acute cardiopulmonary disease.
[2021-08-08 09:10] LABS: Absolute Lymphocytes (CBC) 1.6 K/uL (0.7-4.9); Hematocrit 41.3 % (39.6-49.0); Lymphocytes % 21.4 % (15.3-44.8); MPV 6.9 fL (7.6-11.3); RBC Red Blood Cell Count 4.09 M/uL (4.33-5.43)
[2021-08-08 09:16] LABS: Protime INR 1.1
[2021-08-08 09:27] LABS: Urine Blood Negative (Negative); Urine Glucose Negative (Negative); Urine Protein Negative (Negative)
[2021-08-08 09:28] LABS: SARS-COV-2 RT PCR NEGATIVE (NEGATIVE)
[2021-08-08 09:56] LABS: Albumin 3.7 g/dL (3.4-5.0); Bilirubin Direct 0.2 mg/dL (0-0.2); Bilirubin Total 0.6 mg/dL (0.2-1.0); Magnesium 2.2 mg/dL (1.8-2.4); Potassium 3.9 mmol/L (3.5-5.1); Protein, Total 7.8 g/dL (6.4-8.2); Troponin (Emerg Dept Use Only) 0.05 ng/mL (0.0-0.045)
--- NOTE | 2021-08-08 10:09 | RAD REPORT ---
EXAM DESCRIPTION: CT - Head Brain Wo Cont - 08/08/2021 9:56 am CLINICAL HISTORY: DIZZINESS COMPARISON: No comparisons TECHNIQUE: All CT scans are performed using dose optimization technique as appropriate and may inclu de automated exposure control or mA/KV adjustment according to patient size. FINDINGS: No intracranial hemorrhage, hydrocephalus or extra-axial fluid collection.No areas of brai n edema or evidence of midline shift. The paranasal sinuses and mastoids are clear. The calvarium is intact. IMPRESSION: No acute intracranial abnormality.
--- NOTE | 2021-08-08 11:17 | EDPHYS ---
Physician Documentation [facility] Name: Иван Vickers Age: 76 yrs Sex: Male : 1945 Arrival Date: 08/08/2021 Time: 08:22 Bed 17 Private MD: ED Physician Xavier Serrato HPI: 08/08 08:30 This 76 yrs old Male presents to ER via EMS with complaints of General Weakness. cp 08:30 The patient has shortness of breath at rest. cp 08:30 Onset: The symptoms/episode began/occurred this morning. Duration: The symptoms are cp continuous, and are unchanged since they started. Associated signs and symptoms: Pertinent positives: general weakness, sore throat, Pertinent negatives: chest pain, productive cough, diaphoresis, fever, vomiting. Historical: - Allergies: 09:09 No Known Allergies; eo2 - Home Meds: 09:24 lisinopril 20 mg Oral tab 1 tab twice a day [Active]; Eliquis 5 mg oral tab 2 tabs 2 eo2 times per day [Active]; - PMHx: 09:09 Pacemaker; eo2 09:24 Hypertensive disorder; aortic valve problem; Arthritis; eo2 - Immunization history:: Client reports receiving the 2nd dose of the Covid vaccine. - Social history:: Smoking status: Patient reports the use of cigarette tobacco products, former smoker, Patient uses alcohol, occasionally. ROS: 08:35 Constitutional: Negative for body aches, chills, fever, poor PO intake. cp 08:35 Eyes: Negative for injury, pain, redness, and discharge. cp 08:35 ENT: Positive for sore throat, Negative for drainage from ear(s), ear pain, difficulty swallowing, difficulty handling secretions. 08:35 Cardiovascular: Negative for chest pain, palpitations. 08:35 Respiratory: Positive for shortness of breath, at rest. Negative for cough, wheezing. 08:35 Abdomen/GI: Negative for abdominal pain, nausea, vomiting, and diarrhea. 08:35 Neuro: Positive for weakness, Negative for altered mental status, headache, syncope. 08:35 All other systems are negative. Exam: 08:33 ECG was reviewed by the Attending Physician. cp 08:38 Constitutional: The patient appears in no acute distress, alert, awake, cp non-diaphoretic, non-toxic, well developed, well nourished. 08:38 Head/Face: Normocephalic, atraumatic. cp 08:38 Eyes: Periorbital structures: appear normal, Conjunctiva: normal, no exudate, no injection, Sclera: no appreciated abnormality, Lids and lashes: appear normal, bilaterally. 08:38 ENT: External ear(s): are unremarkable, Nose: is normal, Mouth: Lips: moist, Oral mucosa: moist, Posterior pharynx: Airway: no evidence of obstruction, patent. 08:38 Neck: ROM/movement: is normal, is supple, without pain, no range of motions limitations. 08:38 Chest/axilla: Inspection: normal, Palpation: is normal, no crepitus, no tenderness. 08:38 Cardiovascular: Rate: normal, Rhythm: regular, Edema: is not appreciated, JVD: is not appreciated. 08:38 Respiratory: the patient does not display signs of respiratory distress, Respirations: labored breathing, is not present, intercostal retractions, are absent, Breath sounds: decreased breath sounds, are not appreciated, stridor, is not appreciated, wheezing: is not appreciated. 08:38 Abdomen/GI: Inspection: abdomen appears normal, Palpation: abdomen is soft and non-tender, in all quadrants. 08:38 Back: pain, is absent, ROM is normal. 08:38 Neuro: Orientation: to person, place \\T\\ time. Mentation: is normal, Cerebellar function: is grossly normal, Motor: moves all fours, strength is normal, Sensation: is normal. Vital Signs: 08:19 BP 144 / 93; Pulse 74; Resp 17; Pulse Ox 100% ; Pain 7/10; eo2 08:20 Temp 99.1(TE); mb4 09:30 BP 162 / 97; Pulse 64; Resp 15; Pulse Ox 100% ; Pain 10/10; eo2 10:30 BP 167 / 83; Pulse 61; Resp 15; Pulse Ox 100% ; eo2 11:00 BP 156 / 85; Pulse 62; Resp 15; Pulse Ox 100% ; Pain 0/10; eo2 11:52 BP 164 / 79; Pulse 68; Resp 15; Pulse Ox 100% ; jl7 13:14 BP 157 / 88; Pulse 88; Pulse Ox 100% ; ap3 MDM: 08:22 Patient medically screened. daniel 08:30 Differential diagnosis: Bronchitis CHF exacerbation, pneumonia, Pneumothorax pulmonary cp edema, Pulmonary Embolism Sepsis. 11:10 Data reviewed: vital signs, nurses notes, lab test result(s), EKG, radiologic studies, cp plain films. 11:10 Test interpretation: by ED physician or midlevel provider: ECG, plain radiologic cp studies. 11:15 Physician consultation: John Vazquez was called at 11:15, was contacted at 11:15, cp regarding admission, to the telemetry unit. patient's condition, and will see patient in ED, shortly. 08/08 08:25 Order name: Basic Metabolic Panel; Complete Time: 10: [facility] 08/08 10:27 Interpretation: Normal except: NA 131; CL 97; GFR 83. 08/08 08:25 Order name: CBC with Diff; Complete Time: 09:19 [facility] 08/08 09:19 Interpretation: Normal except: RBC 4.09; MCV 100.8; MPV 6.9. 08/08 08:25 Order name: LFT's; Complete Time: 10: [facility] 08/08 10:27 Interpretation: Normal except: GLOB 4.1; A/G 0.9. 08/08 08:25 Order name: Magnesium; Complete Time: 10: [facility] 08/08 08:25 Order name: NT PRO-BNP; Complete Time: 10: [facility] 08/08 10:27 Interpretation: Abnormal: NT PRO-BNP 1118. 08/08 08:25 Order name: PT-INR; Complete Time: 09: [facility] 08/08 11:01 Interpretation: Abnormal: PT 12.7. 08/08 08:25 Order name: Troponin (emerg Dept Use Only); Complete Time: 10: [facility] 08/08 11:01 Interpretation: Abnormal: TROPED 0.05. 08/08 08:25 Order name: Lipase; Complete Time: 10: [facility] 08/08 08:25 Order name: COVID-19/FLU A+B/RSV (Document "Date of Onset" if Symptomatic); Complete [facility] Time: 10:08/08 08:25 Order name: Strep; Complete Time: 10: [facility] 08/08 08:25 Order name: Lactate; Complete Time: 10: [facility] 08/08 08:25 Order name: Blood Culture Adult (2) [facility] 08/08 09:26 Order name: Urine Dipstick-Ancillary; Complete Time: 10:26 [facility] 08/08 09:55 Order name: Throat Culture [facility] 08/08 08:25 Order name: XRAY Chest (1 view); Complete Time: 09:19 [facility] 08/08 08:25 Order name: EKG; Complete Time: 08:26 [facility] 08/08 08:25 Order name: Cardiac monitoring; Complete Time: 08:59 [facility] 08/08 08:25 Order name: EKG - Nurse/Tech; Complete Time: 08:59 [facility] 08/08 08:25 Order name: IV Saline Lock; Complete Time: 08:59 [facility] 08/08 08:25 Order name: Labs collected and sent; Complete Time: 08:59 [facility] 08/08 08:25 Order name: O2 Per Protocol; Complete Time: 08:59 [facility] 08/08 08:25 Order name: O2 Sat Monitoring; Complete Time: 08:59 [facility] 08/08 08:25 Order name: Urine Dipstick-Ancillary (obtain specimen); Complete Time: 11:34 [facility] 08/08 09:19 Order name: CT Head Brain wo Cont; Complete Time: 10:26 cp EC:33 Rate is 66 beats/min. Rhythm is regular, Paced. DE interval is normal. QRS interval is cp prolonged at 152 msec. QT interval is normal. T waves are Inverted in leads aVL, aVR, V2. Interpreted by me. Reviewed by me. Administered Medications: 08:50 Drug: NS 0.9% 1000 ml Route: IV; Rate: 1 bolus; Site: right forearm; eo2 09:50 Follow up: Response: No adverse reaction; IV Status: Completed infusion; IV Intake: eo2 1000ml Disposition Summary: 08/08/21 11:16 Hospitalization Ordered Hospitalization Status: Observation cp Provider: John Vazquez cp Location: Telemetry/MedSurg (observation) cp Condition: Stable cp Problem: new cp Symptoms: have improved cp Bed/Room Type: Standard Room Assignment: 207(08/08/21 13:23) dw Diagnosis - Unspecified combined systolic (congestive) and diastolic (congestive) heart failure cp - Dyspnea cp Forms: - Medication Reconciliation Form cp - SBAR form cp Addendum: 08/09/2021 18:47 Co-signature as Attending Physician, Xavier Serrato MD I agree with the assessment and c childers plan of care. Signatures: Dispatcher [employer] Dorinda Morales Diana, RN RN dw Xavier Serrato MD MD cha Page, Corey, PA PA cp Owoade, Eunice, TOMASZ RN eo2 Corrections: (The following items were deleted from the chart) 08/08 12:56 11:16 cp bd 13:23 12:56 202 bd dw
--- NOTE | 2021-08-08 11:17 | ER ---
Nurse's Notes [facility] Name: Иван Vickers Age: 76 yrs Sex: Male : 1945 Arrival Date: 08/08/2021 Time: 08:22 Bed 17 Private MD: Diagnosis: Unspecified combined systolic (congestive) and diastolic (congestive) heart failure;Dyspnea Presentation: 08/08 08:19 Chief complaint: EMS states: Pt [facility] from home, aaox4 with reports of sore throat and eo2 generalized weakness onset this morning. Pt with hx of HTN, and pacemaker. Coronavirus screen: Vaccine status: Patient reports receiving the 2nd dose of the covid vaccine. Client denies travel out of the [place] in the last 14 days. Client presents with at least one sign or symptom that may indicate coronavirus-19. Standard/surgical mask placed on the client. Ebola Screen: Patient denies travel to an Ebola-affected area in the 21 days before illness onset. No symptoms or risks identified at this time. Initial Sepsis Screen: Does the patient meet any 2 criteria? No. Patient's initial sepsis screen is negative. Does the patient have a suspected source of infection? No. Patient's initial sepsis screen is negative. Risk Assessment: Do you want to hurt yourself or someone else? Patient reports no desire to harm self or others. Onset of symptoms was August 08, 2021. 08:19 Method Of Arrival: EMS: [facility] eo2 08:19 Acuity: RENALDO 3 eo2 Triage Assessment: 08:19 General: Appears in no apparent distress. comfortable. eo2 Historical: - Allergies: 09:09 No Known Allergies; eo2 - Home Meds: 09:24 lisinopril 20 mg Oral tab 1 tab twice a day [Active]; Eliquis 5 mg oral tab 2 tabs 2 eo2 times per day [Active]; - PMHx: 09:09 Pacemaker; eo2 09:24 Hypertensive disorder; aortic valve problem; Arthritis; eo2 - Immunization history:: Client reports receiving the 2nd dose of the Covid vaccine. - Social history:: Smoking status: Patient reports the use of cigarette tobacco products, former smoker, Patient uses alcohol, occasionally. Screenin:32 Abuse screen: Denies threats or abuse. Nutritional screening: No deficits noted. eo2 Tuberculosis screening: No symptoms or risk factors identified. Fall Risk Fall in past 12 months (25 points). Assessment: 09:00 General: Appears in no apparent distress. comfortable, Behavior is calm, cooperative. eo2 Pain: Complains of pain in reports left shoulder pain x 1 year. Neuro: Reports dizziness, since this morning weakness since this morning Denies blurred vision headache. Cardiovascular: Reports fatigue, shortness of breath, "chest tightness" onset this morning Rhythm is ventricular pacer. Respiratory: Reports shortness of breath Breath sounds are clear bilaterally. GI: No deficits noted. Patient currently denies nausea, vomiting. EENT: Reports sore throat and painful swallowing onset this morning. Musculoskeletal: Reports weakness in generalized weakness onset this morning pain in left shoulder-arthritic pain per pt. 11:40 Reassessment: Dr. Vazquez at bedside assessing pt for hospitalization. jl7 13:10 General: nurse called second floor to give report. Marilu notified nurse that the ap3 receiving nurse will be returning the phone call for report. . 13:14 Reassessment: Patient and/or family updated on plan of care and expected duration. Pain ap3 level reassessed. Patient is alert, oriented x 3, equal unlabored respirations, skin warm/dry/pink. 13:34 Reassessment: marilu called back to say that the receiving nurse is still busy with a ap3 new admit. her charge nurse is not available at this time to take report . 14:12 Reassessment: report given to Patrick Darling. ap3 Vital Signs: 08:19 BP 144 / 93; Pulse 74; Resp 17; Pulse Ox 100% ; Pain 7/10; eo2 08:20 Temp 99.1(TE); mb4 09:30 BP 162 / 97; Pulse 64; Resp 15; Pulse Ox 100% ; Pain 10/10; eo2 10:30 BP 167 / 83; Pulse 61; Resp 15; Pulse Ox 100% ; eo2 11:00 BP 156 / 85; Pulse 62; Resp 15; Pulse Ox 100% ; Pain 0/10; eo2 11:52 BP 164 / 79; Pulse 68; Resp 15; Pulse Ox 100% ; jl7 13:14 BP 157 / 88; Pulse 88; Pulse Ox 100% ; ap3 Vitals: 08:19 Cardiac Rhythm Assessment Paced. eo2 ED Course: 08:22 Patient arrived in ED. daniel 08:22 Xavier Serrato MD is Attending Physician. daniel 08:22 Bed in low position. Call light in reach. Side rails up X 1. Pulse ox on. NIBP on. mb4 08:23 Xavier Josue PA is PHCP. cp 08:25 Arm band placed on Patient placed in an exam room, on a stretcher. ll1 08:30 EKG done, by ED staff, reviewed by Xavier Serrato MD. mb4 08:33 COVID swab sent to lab. Flu and/or RSV swab sent to lab. Strep swab sent to lab. mb4 08:40 Inserted saline lock: 20 gauge in left antecubital area, using aseptic technique. Blood eo2 collected. 08:46 Inserted saline lock: 20 gauge in right forearm, using aseptic technique. Blood eo2 collected. 08:51 Anaid Krause, RN is Primary Nurse. eo2 08:57 Blood Culture Adult (2) Sent. eo2 08:57 Lactate Sent. eo2 08:58 Strep Sent. eo2 08:58 COVID-19/FLU A+B/RSV (Document "Date of Onset" if Symptomatic) Sent. eo2 08:59 Lipase Sent. eo2 08:59 Basic Metabolic Panel Sent. eo2 08:59 CBC with Diff Sent. eo2 08:59 LFT's Sent. eo2 08:59 Magnesium Sent. eo2 08:59 NT PRO-BNP Sent. eo2 08:59 PT-INR Sent. eo2 08:59 Troponin (emerg Dept Use Only) Sent. eo2 09:03 XRAY Chest (1 view) In Process Unspecified. EDMS 09:21 Triage completed. eo2 09:43 CT Head Brain wo Cont In Process Unspecified. EDMS 11:15 John Vazquez is Hospitalizing Provider. cp 14:24 No provider procedures requiring assistance completed. Patient admitted, IV remains in ap3 place. Administered Medications: 08:50 Drug: NS 0.9% 1000 ml Route: IV; Rate: 1 bolus; Site: right forearm; eo2 09:50 Follow up: Response: No adverse reaction; IV Status: Completed infusion; IV Intake: eo2 1000ml Intake: 09:50 IV: 1000ml; Total: 1000ml. eo2 Outcome: 11:16 Decision to Hospitalize by Provider. cp 14:24 Admitted to Med/surg accompanied by tech, room 207, on monitor, Report called to Lisset palafox 14:24 Condition: stable 14:24 Discharge instructions given to patient, Instructed on the need for admit, Demonstrated understanding of instructions. 14:48 Patient left the ED. ap3 Signatures: Dispatcher [employer] EDMS Xavier Serrato MD MD cha Page, Corey, Bree Cooley cp RN RN jl7 Trina Rand RN RN ap3 Chel Lacey4 Karen Kahn RN RN ll1 Anaid Krause RN RN eo2
--- NOTE | 2021-08-08 12:45 | P.HP ---
Certification for Inpatient Patient admitted to: Observation With expected LOS: <2 Midnights Practitioner: I am a practitioner with admitting privileges, knowledge of patient current condition, hospital course, and medical plan of care. Services: Services provided to patient in accordance with Admission requirements found in Title 42 Section 412.3 of the Code of Federal Regulations Patient History Date of Service: 08/08/21 Reason for admission: Dizziness and shortness of breath History of Present Illness: 76-year-old gentleman with a history of hypertension, status post pacemaker, aortic stenosis presented to the emergency department with a complaint of intermittent dizziness. Patient reports shortness of breath and chest tightness since yesterday. He denies any cough, no abdominal pain. Work-up in the ED revealed mild elevated troponin. Chest x-ray shows no acute disease. EKG demonstrated paced rhythm. BNP elevated. Patient placed under observation for further management. - Past Medical/Surgical History -: Aortic stenosis -: Hypertension -: Status post pacemaker - Family History Father -: Heart disease - Social History Smoking Status: Former smoker Alcohol use: Yes CD- Drugs: No Place of Residence: Home Review of Systems Other: Except as documented, all other systems reviewed and negative. Physical Examination - Physical Exam General: Alert, In no apparent distress, Oriented x3 HEENT: Atraumatic, PERRLA, Mucous membr. moist/pink, Sclerae nonicteric Neck: Supple, JVD not distended, No Thyromegaly Respiratory: Clear to auscultation bilaterally, Normal air movement Cardiovascular: No edema, Regular rate/rhythm, Normal S1 S2, No murmurs Gastrointestinal: Normal bowel sounds, Soft and benign, Non-distended, No tenderness Musculoskeletal: No swelling, No tenderness Integumentary: No rashes, No erythema, No cyanosis Neurological: Normal speech, Normal strength at 5/5 x4 extr, Cranial nerves 3-12 intact Lymphatics: No axilla or inguinal lymphadenopathy - Studies Laboratory Data (last 24 hrs) 08/08/21 08:40: PT 12.7 H, INR 1.10 08/08/21 08:40: WBC 7.50, Hgb 14.1, Hct 41.3, Plt Count 241 08/08/21 08:40: Sodium 131 L, Potassium 3.9, BUN 14, Creatinine 0.89, Glucose 91, Magnesium 2.2, Total Bilirubin 0.6, AST 27, ALT 25, Alkaline Phosphatase 102, Lipase 202 Microbiology Data (last 24 hrs): 08/08/21 08:33 Throat Group A Streptococcus Rapid Screen - Final Assessment and Plan - Problems (Diagnosis) (1) Elevated troponin Current Visit: Yes Status: Acute (2) Dyspnea on exertion Current Visit: Yes Status: Acute (3) Aortic stenosis Current Visit: Yes Status: Acute (4) Hypertension Current Visit: Yes Status: Acute (5) Chronic anticoagulation Current Visit: Yes Status: Acute - Plan Place patient under observation. Trend troponin Start aspirin 81 mg daily. Continue home Eliquis. Obtain echocardiogram to check status of aortic stenosis and wall motion abnormality. Cardiology consult Continue lisinopril for hypertension. Patient given a dose of IV Lasix in the ED. His SPO2 is 100% on room air. Chest x-ray shows no vascular congestion. No significant evidence for CHF. - Advance Directives Does patient have a Living Will: No Does patient have a Durable POA for Healthcare: No
[2021-08-08 14:59] VITALS: BMI 21.1
[2021-08-08] MEDS ORDERED: ACETAMINOPHEN 500 MG TAB PO PRN (15:01)
[2021-08-08 16:32] LABS: Troponin I 0.03 ng/mL (0.0-0.045)
[2021-08-08] MEDS ORDERED: PNEUMOCOCCAL VACCINE 0.5 ML IMVAC ONE (17:00)
[2021-08-08] MEDS: APIXABAN 5 MG TABLET PO SCH (20:44)
[2021-08-08] MEDS: lisinopriL 20 MG TAB PO SCH (20:44)
[2021-08-08] MEDS: HYDROCODONE/APAP 10/325 TAB PO PRN (20:46)
[2021-08-08] MEDS ORDERED: HYDROCODONE/APAP 10/325 TAB PO SCH (21:00)
[2021-08-09] MEDS ORDERED: HYDROCODONE/APAP 10/325 TAB PO ONE (03:59)
--- NOTE | 2021-08-09 05:57 | P.PN ---
Date of Service: 08/09/21 Subjective: reports ongoing chest tightness, denies dizziness to get echo done today, reports h/o aortic stenosis and was advised in past to get it fixed/replaced ROS: 10 point ROS as noted above, otherwise negative Physical exam GEN: Alert, oriented, NAD HEENT: Normal conjunctiva, sclera anicteric CV: Regular rate and rhythm, no edema, +murmur Pulm: Nonlabored respiration on room air ABD: Soft, nontender, nondistended Integumentary: No rashes Neuro: Normal speech, normal affect Problem List elevated troponin Dyspnea on exertion Aortic stenosis HTN chronic anticoagulation, s/p pace maker stable on room air cardiology consulted plan for echo today, further recs after echo may need transfer vs outpatient follow up trop trended down, suspect deman ischemia in setting of aortic stenosis CXR clear, mildly elevated BNP Dispo: anticipate dc home within 24hrs Time Spent Managing Pts Care (In Minutes): 35
[2021-08-09 06:15] LABS: Absolute Lymphocytes (CBC) 1.1 K/uL (0.7-4.9); Lymphocytes % 21.7 % (15.3-44.8); MPV 7.3 fL (7.6-11.3); RBC Red Blood Cell Count 3.63 M/uL (4.33-5.43)
[2021-08-09 06:24] LABS: BUN Blood Urea Nitrogen 15 mg/dL (7-18); Bicarbonate 27 mmol/L (21-32); Glucose Level 95 mg/dL (74-106); Sodium Level 137 mmol/L (136-145)
--- NOTE | 2021-08-09 07:38 | EKG ---
Test Date: 2021-08-08 Test Time: 08:27:29 Information Technology Account Manager: CANDICE MEASUREMENT RESULTS: Intervals: Rate: 66 NM: 188 QRSD: 152 QT: 472 QTc: 494 [place]: P: 61 NM: 188 QRS: -86 T: 81 INTERPRETIVE STATEMENTS: Atrial-sensed ventricular-paced rhythm Abnormal ECG Compared to ECG 11/11/2020 10:19:12 No significant changes Electronically Signed On 08-09-21 07:35:11 [employer] by Pj Mckee
[2021-08-09] MEDS: TAMSULOSIN 0.4 MG SR CAP PO SCH (08:11)
[2021-08-09] MEDS: HYDROCODONE/APAP 10/325 TAB PO PRN ×2 (08:11→21:14)
[2021-08-09] MEDS: ASPIRIN EC 81 MG TAB PO SCH (08:11)
[2021-08-09] MEDS: APIXABAN 5 MG TABLET PO SCH ×2 (08:12→21:11)
[2021-08-09] MEDS: lisinopriL 20 MG TAB PO SCH ×2 (09:00→21:11)
[2021-08-09] MEDS ORDERED: lisinopriL 20 MG TAB PO SCH (09:00)
--- NOTE | 2021-08-09 12:18 | CON ---
Date of Consultation: 08/09/[address] Carlin on 08/08/2021 and I saw the patient on 08/09/2021. Reason For Consultation: Aortic stenosis. History Of Present Illness: Mr. Vickers is 76. Has seen business support coordinator in the past. He has a histor y of pacemaker. He has a history of hypertension, known aortic stenosis. According to him, the last echo was by Dr. Maldonado approximately 6 months ago. Came in with dizziness and shortness of breath. E chocardiogram is pending. Troponin is 0.05. BNP is 1118. Medications: At home include lisinopril and Eliquis. Review of Systems: Negative. Social History: Negative. Family History: Negative. Physical Examination: General: He was in a paced rhythm. No acute distress. Afebrile. HEENT: Negative. Neck: Supple with no bruit. Chest: Clear. Cardiac: Revealed aortic stenosis, otherwise regular rhythm and rate. Abdomen: Benign. Extremities: Revealed no clubbing, cyanosis, or edema. Diagnostic Data: As stated earlier. Impression And Plan: 1.Aortic stenosis, maybe causing dyspnea and dizziness. Echocardiogram is pending. We will see lisbeth mancera that shows before making further decision. 2.Hypertension, well controlled. 3.Status post pacemaker, well controlled. Normal function by EKG. 4.Elevated troponin and BNP secondary to demand ischemia. We will see what the echocardiogram shows before making further decisions. YOUNG/OSKAR Voice ID: [id number] Report ID: [id number]
--- NOTE | 2021-08-09 13:35 | ECHO ---
HEIGHT: 5 ft 7 in WEIGHT: 135 lb 0 oz DATE OF STUDY: 08/09/[address]: janette samayoa 2-DIMENSIONAL: YES M.MODE: YES DOPPLER: YES COLOR FLOW: YES TDS: PORTABLE: DEFINITY: BUBBLE STUDY: DIAGNOSIS: ELEVATED TROPONIN, DYSPNEA ON EXERTION CARDIAC HISTORY: CATHERIZATION: NO SURGERY: NO PROSTHETIC VALVE: NO PACEMAKER: YES MEASUREMENTS (cm) DIASTOLIC (NORMALS) SYSTOLIC (NORMALS) IVSd 1.1 (0.6-1.2) LA Diam 2.9 (1.9-4.0) LVEF 58% LVIDd 4.3 (3.5-5.7) LVIDs 3.0 (2.0-3.5) %FS 31% LVPWd 1.2 (0.6-1.2) Ao Diam 2.4 (2.0-3.7) 2 DIMENSIONAL ASSESSMENT: RIGHT ATRIUM: NORMAL LEFT ATRIUM: NORMAL RIGHT VENTRICLE: NORMAL LEFT VENTRICLE: NORMAL TRICUSPID VALVE: NORMAL MITRAL VALVE: NORMAL PULMONIC VALVE: NORMAL AORTIC VALVE: STENOTIC PERICARDIAL EFFUSION: NONE AORTIC ROOT: NORMAL LEFT VENTRICULAR WALL MOTION: NORMAL EJECTION FRACTION. DECREASED LEFT VENTRICULAR COMPLIANCE. DOPPLER/COLOR FLOW: MODERATE AORTIC STENOSIS 1.5 CENTIMETERS SQUARED. COMMENTS: MODERATE AORTIC STENOSIS 1.5 CENTIMETERS SQUARED. NORMAL LEFT VENTRICULAR SIZE AND FUNCTION. NO EFFUSION. DECREASED LEFT VENTRICULAR COMPLIANCE. TECHNOLOGIST: MEREDITH GARCIA
[2021-08-10 04:38] LABS: BUN Blood Urea Nitrogen 15 mg/dL (7-18); Bicarbonate 29 mmol/L (21-32); Glucose Level 104 mg/dL (74-106); NT PRO-BNP 448 pg/mL (<450); Potassium 3.9 mmol/L (3.5-5.1); Sodium Level 137 mmol/L (136-145)
[2021-08-10] MEDS: APIXABAN 5 MG TABLET PO SCH (08:56)
[2021-08-10] MEDS: TAMSULOSIN 0.4 MG SR CAP PO SCH (08:56)
[2021-08-10] MEDS: lisinopriL 20 MG TAB PO SCH (08:56)
[2021-08-10] MEDS: ASPIRIN EC 81 MG TAB PO SCH (08:56)
[2021-08-10 09:04] VITALS: O2SAT 98
[2021-08-10] MEDS: HYDROCODONE/APAP 10/325 TAB PO PRN (09:17)
--- NOTE | 2021-08-10 11:03 | RAD REPORT ---
EXAM DESCRIPTION: RAD - Chest Single View - 08/10/2021 10:20 am CLINICAL HISTORY: shortness of breath Chest pain. COMPARISON: Chest Single View dated 08/08/2021; Chest Single View dated 11/11/2020 FINDINGS: Portable technique limits examination quality. The lungs are grossly clear. The heart is normal in size. Dual lead pacer device is in place.Cervical hardware plate is noted. IMPRESSION: No acute intrathoracic process suspected.
[2021-08-10 15:05] VITALS: BP 119/70; TEMP 98
--- NOTE | 2021-08-10 17:40 | P.DS ---
Admission Date: 08/08/21 Discharge Date: 08/10/21 Disposition: ROUTINE DISCHARGE Discharge Condition: GOOD Reason for Admission: Dizziness and shortness of breath Consultations: Cardiology - Dr. Mckee Procedures: CXR (08/08): IMPRESSION: No acute cardiopulmonary disease. CT Head (08/08): FINDINGS: No intracranial hemorrhage, hydrocephalus or extra-axial fluid collection.No areas of brain edema or evidence of midline shift. The paranasal sinuses and mastoids are clear. The calvarium is intact. IMPRESSION: No acute intracranial abnormality. CXR (08/10): FINDINGS: Portable technique limits examination quality. The lungs are grossly clear. The heart is normal in size. Dual lead pacer device is in place.Cervical hardware plate is noted. IMPRESSION: No acute intrathoracic process suspected. TTE (08/09) Moderate aortic stenosis, 1.5 cm Normal LV size and function (50%). Effusion. Decreased LV compliance Problem List elevated troponin Dyspnea on exertion chronic Aortic stenosis, moderate HTN chronic anticoagulation, s/p pace maker Brief History of Present Illness: 76-year-old gentleman with a history of hypertension, status post pacemaker, aortic stenosis presented to the emergency department with a complaint of intermittent dizziness. Patient reports shortness of breath and chest tightness since yesterday. He denies any cough, no abdominal pain. Work-up in the ED revealed mild elevated troponin. Chest x-ray shows no acute disease. EKG demonstrated paced rhythm. BNP elevated. Patient placed under observation for further management. Hospital Course: Troponin trended down. Patient's symptoms improved. Cardiology consulted. Echo revealed moderate aortic stenosis. Cardiology recommended outpatient follow up with his etl database developer. No further inpatient workup. On day of discharge he was breathing comfortably on room air. He ambulated 500ft with PT without issue. He is to continue his medications as previously prescribed. Vital Signs/Physical Exam: Physical exam GEN: Alert, oriented, NAD HEENT: Normal conjunctiva, sclera anicteric CV: Regular rate and rhythm, no edema, +systolic murmur Pulm: Nonlabored respiration on room air ABD: Soft, nontender, nondistended Integumentary: No rashes Neuro: Normal speech, normal affect Temp Pulse Resp BP Pulse Ox 98 F 107 H 18 119/70 96 08/10/21 12:00 08/10/21 12:00 08/10/21 12:00 08/10/21 12:00 08/10/21 12:00 Laboratory Data at Discharge: WBC 5.20 K/uL (4.3-10.9) D 08/09/21 05:21 Hgb 12.3 g/dL (13.6-17.9) L 08/09/21 05:21 Hct 37.0 % (39.6-49.0) L 08/09/21 05:21 Plt Count 203 K/uL (152-406) 08/09/21 05:21 PT 12.7 SECONDS (9.5-12.5) H 08/08/21 08:40 INR 1.10 08/08/21 08:40 Sodium 137 mmol/L (136-145) 08/10/21 04:06 Potassium 3.9 mmol/L (3.5-5.1) 08/10/21 04:06 BUN 15 mg/dL (7-18) 08/10/21 04:06 Creatinine 0.77 mg/dL (0.55-1.3) 08/10/21 04:06 Glucose 104 mg/dL (74-106) 08/10/21 04:06 Magnesium 2.2 mg/dL (1.8-2.4) 08/08/21 08:40 Total Bilirubin 0.6 mg/dL (0.2-1.0) 08/08/21 08:40 AST 27 U/L (15-37) 08/08/21 08:40 ALT 25 U/L (12-78) 08/08/21 08:40 Alkaline Phosphatase 102 U/L (45-117) 08/08/21 08:40 Troponin I 0.04 ng/mL (0.0-0.045) 08/08/21 19:14 Triglycerides 44 mg/dL (<150) 08/08/21 15:28 Cholesterol 182 mg/dL (<200) 08/08/21 15:28 HDL Cholesterol 71 mg/dL (40-60) H 08/08/21 15:28 Cholesterol/HDL Ratio 2.56 08/08/21 15:28 Lipase 202 U/L (73-393) 08/08/21 08:40 Home Medications: Apixaban [Eliquis] 1 tab PO BID 08/08/21 Hydrocodone Bit/Acetaminophen [Hydrocodon-Acetaminophn 10-325] 1 tab PO BID 08/08/21 Lisinopril [Zestril] 1 tab PO BID 08/08/21 Tamsulosin [Flomax*] 1 tab PO DAILY 08/08/21 Physician Discharge Instructions: You were found to have moderate aortic stenosis. Chest xray was clear. You had mild elevation of your troponin (cardiac enzyme). You are further evaluated by cardiology, reviewed your echocardiogram. I recommended no further inpatient work-up or treatment. Continue home medications. Recommended follow-up with your etl database developer and to continue to discuss with them regarding plans for aortic valve replacement. Diet: AHA Activity: Ad martina Followup: NONE,NONE [Primary Care Provider] - Vish Benavidez MD [ACTIVE - CAN ADMIT] - Time spent managing pt's care (in minutes): 45
== END 2021-08-10 15:24 | disposition home or self-care (01) ==
LOC: ER 08:15 → ERHOLD 12:32 → 2ND 14:14
PROVIDERS: ADMIT Internal Medicine; ATTEND Hospitalist
DX: R77.8 Other specified abnormalities of plasma proteins (principal); I35.0 Nonrheumatic aortic (valve) stenosis; I24.8 Other forms of acute ischemic heart disease; R06.00 Dyspnea, unspecified; I10 Essential (primary) hypertension; M19.90 Unspecified osteoarthritis, unspecified site; Z95.0 Presence of cardiac pacemaker; Z79.01 Long term (current) use of anticoagulants; Z87.891 Personal history of nicotine dependence; Z20.822 Contact with and (suspected) exposure to COVID-19; Z82.49 Family history of ischemic heart disease and other diseases of the circulatory system
CPT/HCPCS: 93005; 93306; 87040 ×2; 87070; 85025 ×2; 80048 ×3; 36415 ×2; 83735; 85610; 80061; 80076; 87081; 83605; 81003; 84484 ×3; 83690; 83880 ×2; 0241U; 70450; 71045 ×2; 97161; 96360; 99285; J7030; G0378 ×4

== ENCOUNTER 2021-09-21 10:30 | Inpatient (IN) | payer OTHER ==
--- OUTSIDE RECORDS SUMMARY | 2021-09-21 10:33 | XMS REPORT | Continuity of Care Document ---
:1945 Author Organization [facility] t Address [address] [place] [address] Care Team Providers Name Role Phone Jonathan Quevedo Primary Care Physician Roque BENDER Attending Clinician Unavailable PARVEZ JANG Attending Clinician Unavailable Oren LEE, L Attending Clinician Boby LOTT Attending Clinician Unavailable CARLOS RODRIGUEZ Attending Clinician Unavailable MARGY FOOTE Attending Clinician Unavailable Shay LEE Attending Clinician MARY Attending Clinician Unavailable MD Ramo LIAO Attending Clinician Unavailable BRANDY Attending Clinician Unavailable CARLA JANSEN Attending Clinician Unavailable MD JOELLEN BUNCH Attending Clinician Unavailable JUDD Attending Clinician Unavailable CHAD Attending Clinician Unavailable [...] Admitting Clinician YANNI Admitting Clinician Unavailable MD Ramo LIAO Admitting Clinician Unavailable HONORIO Admitting Clinician Unavailable Payers Payer Name Policy Type Policy Number Effective Date Expiration Date S ourtiny Problems Condition Condition Condition Status Onset Resolution Last Treating Co mments Source Name Details Category Date Date Treatment Clinician Date Hypertensi Hypertensi Disease Active U nivers on, on, 08-26 ity of [place] 00 [facility] Branch Chronic Problem Active 2020-04-29 Tank ike obstructiv 02:45:03 l e Chronic Rosalio pulmonary obstructiv disease, e unspecifie pulmonary d COPD disease, type unspecifie d COPD type Active Problem 04/29/2020 Anna Sam History of History of Problem Resolve Univers [...] ity of syndrome syndrome [place] [facility] Allergies, Adverse Reactions, Alerts Allergy Allergy Status Severity Reaction(s) Onset Inactive Treating Comm ents Source Name Type Date Date Clinician No Known DA Active [facility] Allergie 05-09 [place] 00:[facility]: [facility] No Known DA Active U [facility] Allergie 05-09 [place] 00:00: [facility] No Known DA Active U [facility] Allergie 3 [place] 00:00: [facility] 00 [facility] NO KNOWN Drug Active Univers ALLERGIE Class ity of S [facility] Family History Family Member Diagnosis Comments Start Date Stop Date Source Father Family history of Univers ity of cerebrovascular [place] [facility] accident (CVA) Social History Social Habit Start Date Stop Date Quantity Comments Source Exposure to Not sure [facility] SARS-CoV-2 (event) Medica l Branch Tobacco use and 2021-07-13 2021-07-13 Never used [facility] exposure 00:00:00 00:00:00 Medical Branch Sex [birth year] [facility] 00:00:00 00:00:00 Medical Branch Smoking Status Start Date Stop Date Source Tobacco smoking [facility] consumption unknown Former smoker 2021-07-13 00:00:00 2021-07-13 [facility] [place] 00:00:00 Medical Branch Medications Ordered Filled Start Stop Current Ordering Indication Dosage Frequency Signature Comments Components Source Medication Medication Date Date Medication? Clinician (SIG) Name Name apixaban 5 Yes 1230 5mg Take 1 Unive rs mg tablet 1-20 tablet by ity o f 00:00: mouth 2 [place] 00 (two) Medical times Branch daily. Indication s: artificial heart valve present lisinopriL Yes [id number] 10mg Take 1 U nivers 10 mg 1-20 tablet by ity of tablet 00:00: mouth [place] 00 daily. Medical Branch apixaban 5 Yes 1230 5mg Take 1 Unive rs mg tablet 1-20 tablet by ity o f 00:00: mouth 2 [place] 00 (two) Medical times Branch daily. Indication s: artificial heart valve present lisinopriL Yes [id number] 10mg Take 1 U nivers 10 mg 1-20 tablet by ity of tablet 00:00: mouth [place] 00 daily. Medical Branch atorvastati 2021- Yes [id number] 40mg Take 1 Univers n 40 mg 08-26 tablet by ity of tablet 00:00: 04:59 mouth [place] 00 :00 every Medical evening Branch for 90 days. carvediloL 2021- Yes [id number] 6.25mg Take 1 Univers 6.25 mg 08-26-08 tablet by ity of tablet 00:00: 04:59 mouth 2 [place] 00 :00 (two) Medical times Branch daily with meals for 90 days. levothyroxi 2021- Yes [id number] 50ug Take 1 Univers ne 50 mcg 08-26 tablet by ity of tablet 00:00: 04:59 mouth [place] 00 :00 every Medical morning Branch for 90 days. tamsulosin 2021- Yes [id number] .4mg Take 1 Univers 0.4 mg 24 08-26 capsule by ity of hr capsule 00:00: 04:59 mouth [place] 00 :00 daily for Medical 90 days. Branch atorvastati 2021- Yes [id number] 40mg Take 1 Univers n 40 mg 08-26 tablet by ity of tablet 00:00: 04:59 mouth [place] 00 :00 every Medical evening Branch for 90 days. carvediloL 2021- Yes [id number] 6.25mg Take 1 Univers 6.25 mg 08-26 tablet by ity of tablet 00:00: 04:59 mouth 2 [place] 00 :00 (two) Medical times Branch daily with meals for 90 days. levothyroxi 2021- Yes [id number] 50ug Take 1 Univers ne 50 mcg 08-26 tablet by ity of tablet 00:00: 04:59 mouth [place] 00 :00 every Medical morning Branch for 90 days. tamsulosin 2021- Yes [id number] .4mg Take 1 Univers 0.4 mg 24 08-26 capsule by ity of hr capsule 00:00: 04:59 mouth [place] 00 :00 daily for Medical 90 days. Branch ALBUTEROL 2020-08 Yes Inhale. Unive rs SULFATE HFA 1-24 ity of INHALE 13:47: [address] Mometasone- 2020-08 Yes 2{puff} Inhale 2 Univers Formoterol 1-24 Puffs. ity of 200-5 13:47: [place] mcg/actuati Medical on inhaler Branch LOVAZA, 2020-08 Yes 2g Take 2 g Univer s omega-3-aci 1-24 by mouth. ity of d ethyl 13:47: [place] esters, [facility] Medical gram Branch capsule tiotropium 2020-08 Yes Inhale. Univ ers 18 mcg 1-24 ity of inhalation 13:47: [address] Branch ALBUTEROL 2020-08 Yes Inhale. Unive rs SULFATE HFA 1-24 ity of INHALE 13:47: [address] Branch Mometasone- 2020-08 Yes 2{puff} Inhale 2 Univers Formoterol 1-24 Puffs. ity of 200-5 13:47: [place] mcg/actuati 35 Medical on inhaler Branch LOVAZA, 2020-08 Yes 2g Take 2 g Univer s omega-3-aci 1-24 by mouth. ity of d ethyl 13:47: [place] esters, 1 35 Medical gram Branch capsule tiotropium 2020-08 Yes Inhale. [facility] ers 18 mcg 1-24 ity of inhalation 13:47: [place] 35 [facility] Branch traMADoL Yes Univers 200 mg 24 9-16 ity of hr tablet 00:00: [place] 00 [facility] traMADoL Yes Univers 200 mg 24 9-16 ity of hr tablet 00:00: [address] Clopidogrel Clopidogrel 2017-08 Yes ESTEFANY 1 QD [...] Tablet Oral Tablet NEEDED FOR ans PAIN. Immunizations Ordered Filled Immunization Date Status Comments [facility] e Immunization Name Name SARS-COV-2 COVID-19 2021-08-26 Completed Unive rsity of PFIZER VACCINE 00:00:00 [facility] SARS-COV-2 COVID-19 2021-08-26 Completed Unive rsity of PFIZER VACCINE 00:00:00 [facility] Vital Signs Vital Name Observation Time Observation Value Comments Source Systolic blood 2021-09-16 126 mm[Hg] University of pressure 16:51:00 [facility] Diastolic blood 2021-09-16 85 mm[Hg] University o f pressure 16:51:00 [facility] Heart rate 2021-09-16 73 /min University of 16:51:00 [facility] Body height 2021-09-16 170.2 cm University of 16:51:00 [facility] Body weight 2021-09-16 61.689 kg University of 16:51:00 [facility] BMI 2021-09-16 21.30 kg/m2 University of 16:51:00 [facility] Oxygen saturation 2021-09-16 98 /min [facility] in Arterial blood 16:51:00 [facility] by Pulse oximetry Branch BP Systolic 2018-08-26 125 mm[Hg] Location: HITESH; [facility] 10:05:00 Position: [place] [facility] s Sitting BP Diastolic 2018-08-26 74 mm[Hg] [facility]: [facility] 10:05:00 Position: [place] [facility] s Sitting Height 2018-08-26 67 [in_us] [facility] 10:05:00 [place] [facility] Weight 2018-08-26 130.1875 [lb_av] [facility] 10:05:00 [place] [facility] Body Mass Index 2018-08-26 20.39 kg/m2 University o f Calculated 10:05:00 [place] [facility] Heart Rate 2018-08-26 63 /min Location: Boby [facility] 10:05:00 Brachial [place] [facility] Artery; BP Systolic 2018-08-09 162 mm[Hg] Location: [facility] 13:43:00 Position: [place] Physician s Sitting BP Diastolic 2018-08-09 83 mm[Hg] Location: [facility] 13:43:00 Position: [place] Physician s Sitting Height 2018-08-09 67 [in_us] [facility] 13:43:00 [place] [facility] Weight 2018-08-09 131.375 [lb_av] University o 13:43:00 [place] [facility] Body Mass Index 2018-08-09 20.58 kg/m2 University o Calculated 13:43:00 [place] [facility] Heart Rate 2018-08-09 60 /min Location: [facility] [place] [facility] 13:43:00 Radial; [place] [facility] Procedures Procedure Date / Time Performing Clinician Source Performed [UTP] EMG 2018-09-09 00:00:00 [facility] [place] [facility] EMG/NCS-Arm 2018-08-27 00:00:00 [facility] [place] [facility] [QL] LIPID PANEL 2018-08-26 00:00:00 [facility] Physicians [[facility]] HEMOGLOBIN A1c 2018-08-26 00:00:00 [facility] Physicians CT Head/Neck CTA [address] 2018-08-26 00:00:00 [facility] Physicians MRI Brain wo contrast 2018-08-26 00:00:00 [facility] [id number] Physicians History Of Prior [facility] Physicians History of Aortic Valve [facility] Replacement Physicians Plan of Care Planned Activity Planned Date Details Comments Source Diagnostic Test 2018-09-09 [UTP] EMG [code = [facility] Pending 00:00:00 [UTP] EMG] Physicians Diagnostic Test 2018-09-09 [UTP] EMG [code = [facility] Pending 00:00:00 [UTP] EMG] Physicians Diagnostic Test 2018-08-27 EMG/NCS-Arm [code [facility] Pending 00:00:00 = EMG/NCS-Arm] Physicians Diagnostic Test 2018-08-27 EMG/NCS-Arm [code [facility] Pending 00:00:00 = EMG/NCS-Arm] Physicians Encounters Start End Encounter Admission Attending Care Care Encounter Source Date/Time Date/Time Type Type Clinicians Facility Department ID 2021-05-16 Outpatient YULIA T CAR [id number] [facility] 08:26:40 KALEN 2021-05-07 Outpatient [id number] Memoria 14:21:38 [id number] l -[id number] [id number] Rosalio [id number] 2021-05-06 Outpatient [id number] Memoria 13:52:36 [id number]-[id number]-[id number] 2EC-46C8- A l -K08Z-3X2 [id number] Rosalio [id number] [id number] 2021-04-29 Outpatient [id number] CA1D-D Memoria 13:17:24 [id number]-[id number] AC-4ABC-A54 3AC-4ABC- A l -E136-CR6 [id number] Rosalio [id number] 2021-04-21 Outpatient [id number] [id number]-C Memoria 17:13:25 CEFC-4E6D FC-[id number]-FU9 EFC-4E6D- A l -CH46-T08 [id number] Rosalio [id number] 2021-01-31 Outpatient DOMINIQUE JANG MHTW [id number] 08:42:11 BRICE 2020-10-29 Inpatient [facility] BUBBA [id number] [facility] 12:12:00 [id number] [facility] 2020-06-11 Inpatient [facility] BUBBA [id number] [facility] 13:00:00 [id number] [facility] 2020-03-23 Inpatient [facility] BUBBA [id number] [facility] 20:51:00 [facility] 2021-09-16 2021-09-16 [facility] [id number] [facility] 11:00:00 11:27:38 Visit [facility] [id number] [facility] [id number] Anuj as LYNETTE?BLEA [id number] [address] MEDICAL OFFICE [facility] 2021-09-16 2021-09-16 [facility] [id number] [facility] 11:00:00 11:27:38 ABILIO chaudhry [facility] 2021-05-22 2021-05-23 Outpatient Lucía RODRIGUEZ GigiW MED [id number] MHTW 19:19:00 17:25:00 BRANDY 2021-05-16 2021-05-19 Inpatient U DOMINIQUE FOOTE MED [id number] MHTW 12:36:00 17:07:00 KRYSTIN 2021-05-13 2021-05-13 EXT [facility] OP Shay, EXT MSRDP [id number] 00:00:00 00:00:00 [facility] [id number] [facility] [id number] 2021-05-06 2021-05-07 Outpatient MARY, [facility] [id number] [place] 00:00:00 00:00:00 AHMED [address] 2021-04-29 2021-04-29 Emergency NAVA, [facility] [id number] [place] 00:00:00 00:00:00 ALEX 158 Method i 2021-04-21 2021-04-23 Outpatient CARLA [facility] [id number] [place] 00:00:00 00:00:00 INDERJIT, [address] 2021-03-05 2021-03-06 Outpatient AWOBOKUN, [place] [id number] [place] 00:00:00 00:00:00 OLUYEMISI [address] her[address] 2021-01-28 2021-01-28 Outpatient [facility] [id number] [place] 00:00:00 00:00:[address] 2021-01-06 2021-01-06 Outpatient CHAD, RILEY [facility] [id number] [place] 00:00:00 00:00:[address] 2021-01-03 2021-01-03 Outpatient Elders, [facility] [id number] [facility] 08:30:00 08:30:00 Paolo [id number] [facility] 2020-10-28 2020-10-28 Outpatient [facility] [id number] [place] 00:00:00 00:00:[address] 2020-07-31 2020-07-31 Outpatient LAINE, MHTW MHTW [id number] MHTW 08:00:00 23:59:00 BRICE 2019-12-29 2019-12-29 Outpatient Germaine, [facility] ENDO [id number] [facility] 10:30:00 10:30:00 Ilyas [id number] [facility] 2018-08-26 2018-08-26 DOTTY [facility] [id number] [facility] 10:00:00 10:00:00 tisidoro SILVERMAN of [place] JAIN Physici M.D. [facility] 2018-08-09 2018-08-09 Appointmen JUANA, UTP UTP [id number] Univers 12:30:00 12:30:00 t; JUANA, CLINIC ity of [facility] ans 2018-08-09 2018-08-09 Appointmen MARLON, UTP UTP [id number] Univers 11:00:00 11:00:00 t; MARLON, ECHOII ity of [facility] 2018-04-12 2018-04-12 Appointmen JOAN, UTP UTP [id number] Univers 11:00:00 11:00:00 t; JOAN BRAD, CARPET LAYER HELPER it y of BRAD, CARPET LAYER HELPER [facility] ans 2017-10-12 2017-10-12 Appointmen JUANA, UTP UTP [id number] Univers 10:30:00 10:30:00 t; JUANA, CLINIC ity of [facility] 2017-08-09 2017-08-09 Appointmen DERICK, UTP UTP [id number] Univers 14:45:00 14:45:00 t; LEO SEPULVEDA, ity of [place] BAILEY [facility] 2017-08-09 2017-08-09 Appointmen MARLON, UTP UTP [id number] Univers 14:00:00 14:00:00 t; WIL MASONII ity of [facility] 2017-06-22 2017-06-22 Appointmen VALVE, UTP UTP [id number] Univers 09:45:00 09:45:00 t; VALVE, CLINIC ity of [facility] 2017-06-08 2017-06-08 Appointmen VALVE, UTP UTP [id number] Univers 11:45:00 11:45:00 t; VALVE, CLINIC ity of [facility] 2017-06-08 2017-06-08 Appointmen MARLON, UTP UTP [id number] Univers 11:30:00 11:30:00 t; WIL MASON1 ity of [address] Results Test Description Test Time Test Comments Results Result Comments Source SARS-CoV-2 (COVID-19) RNA [Presence] in Respiratory sp ecimen by 2021-05-07 04:39:02 MOHINDER with probe detection Test Item Value Reference Range Interpretation Comme nts SARS-CoV-2 (COVID-19) RNA [Presence] in Respiratory Not detected No t-Detected specimen by MOHINDER with probe detection (test code = 88902-4) Whether patient is employed in a healthcare setting (test code = 34366-6) Whether the patient has symptoms related to condition of interest (test code = 45702-5) Patient was hospitalized because of this condition (test code = 70493-1) Whether the patient was admitted to intensive care unit (ICU) for condition of interest (test code = 24541-7) Whether patient resides in a congregate care setting (test code = 62640-1) SARS-CoV-2 (COVID-19) RNA [Presence] in Respiratory specimen by MOHINDER with probe [id number] 04:15:33 Test Item Value Reference Range Interpretation Comments SARS-CoV-2 (COVID-19) RNA Not detected Not-Detected [Presence] in Respiratory specimen by MOHINDER with probe detection (test code = 60404-3) Whether patient is employed in a healthcare setting (test code = 19247-1) Whether the patient has symptoms related to condition of interest (test code = 78071-1) Patient was hospitalized because of this condition (test code = 61250-9) Whether the patient was admitted to intensive care unit (ICU) for condition of interest (test code = 53284-2) Whether patient resides in a congregate care setting (test code = 96117-7) - CT UP EXTREM W/O CONT [id number] 09:13:00 [facility] : 1945 Sex: M Patient Name: TRINITY GARZA Unit No: [id number] EXAMS: CPT CODE: [id number] CT [place] EXTREM W/[place] [address] EXAM: - CT UP EXTREM W/O CONT [...] to 7 mm in size. There is rwdh-ns-vglp appearance was subchondral sclerosis. The humeral head [...] (912) Cadence.CB5 508 Imaging NAME: TRINITY GARZA [address] [place] [address] PHYS: Paolo Panchal MD [place], [place] : 1945 AGE: 75 SEX: M [id number] LOC: [email or web address] PHONE #: [phone] EXAM DATE: 01/03/2021 STATUS: REG CLI FAX #: [phone] RAD #: D/C DT PAGE 1 Signed Report Patient Name: TRINITY GARZA Unit No: [id number] EXAMS: CPT CODE: [id number] CT UP EXTREM W/[place] [address] <Continued> Orig Print D/T: S: 01/03/2021 (8405) 799 Imaging NAME: TRINITY GARZA [address] [place] [address] PHYS: Paolo Panchal MD [place], [place] : 1945 AGE: 75 SEX: M [id number] LOC: [email or web address] PHONE #: [phone] EXAM DATE: 01/03/2021 STATUS: REG CLI FAX #: [phone] RAD #: D/C DT PAGE 2 Signed Report- XR C-SPINE 2-3 [id number] 18:02:00 [facility] : 1945 Sex: M FAX: Cristo Camarena MD [phone] [place]: E St: REG FAX: Yosi TAVARES, GENERIC FOR EDM FAX: Rodney Santoro [phone] Patient Name: TRINITY GARZA Unit No: [id number] EXAMS: CPT CODE: [id number] XR C-SPINE 2-3 VIEWS 17729 Location: V7Ripgkurt spine x-ray exam: 5 views conducted on 10/29/20 with flexion and extension imaging acquired Comparison exam: 10/29/20 CT examination of the cervical spine. CLINICAL HISTORY: Assess for instability. Neck pain. Fusion identified again from C4 to T1. 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 CC: ANUSHA GENERIC FOR EDM; Rodney Santoro NP Dictated Date/Time: 10/29/2020 (1801)Technologist: Milagros Enciso Transcribed Date/Time: 10/29/2020 (1801) By: [email or web address] Orig Print D/T: S: 10/29/2020 (1804) PETER Forrester NAME: TRINITY GARZA [address] PHYS: Rodney [place], [place] [address] : 1945 AGE: 75 SEX: M LOC: KatlinSeanHARLEY PHONE #: [phone] EXAM DATE: 10/29/2020 STATUS: REG ER FAX #: [phone] RAD NO: DC Dt: PAGE 1 Signed Report- CT C-SPINE W/O CONT 2020-10-29 14:29:00 [facility] : 1945 Sex: M Patient Name: TRINITY GARZA Unit No: [id number] EXAMS: CPT CODE: [id number] CT C-SPINE W/O CONT 50173 EXAMINATION: - CT C-SPINE W/O CONT COMPARISON: [...] clear.. IMPRESSION: PETER Forrester NAME: TRINITY GARZA [address] PHYS: - Rodney [place], [place] [address] : 1945 AGE: 75 SEX: M LOC: GiselERS PHONE #: [phone] EXAM DATE: 10/29/2020 STATUS: REG ER FAX #: [phone] RAD #: D/C DT PAGE 1 Signed Report (CONTINUED) Patient Name: TRINITY GARZA Unit No: [id number] EXAMS: CPT CODE: [id number] CT C-SPINE W/O CONT 99485 <Continued> Postsurgical and degenerative changes in the cervical spine as detailed above. Anterior fixation plate is discontinuous at the inferior C6 level. It appeared contiguous on the 2013 intraoperative x-rays. Whether this represents hardware failure or changes related to interval revision of the operative site is unclear. at 1429 Reported and signed by: Breana Floyd MD CC: [facility]; Rodney Santoro CARPET LAYER HELPER Dict ated Date/Time: 10/29/2020 (1429) Technologist: Acacia James CTDI: 13.73 DLP: 282.34 Trnscrpt: 10/29/2020 (1429) Cadence.AG38 ALFONZORiana Usama NAME: TRINITY GARZA [address] PHYS: - Rodney [place], [place] [address] : 1945 AGE: 75 SEX: M LOC: GiselERS PHONE #: [phone] EXAM DATE: 10/29/2020 STATUS: REG ER FAX #: [phone] RAD #: D/CDT PAGE 2 Signed Report Patient Name: TRINITY GARZA Unit No: [id number] EXAMS: CPT CODE: [id number] CT C-SPINE W/O CONT 32481 <Continued> Orig Print D/T: S: 10/29/2020 (1432) HCARiana Forrester NAME: TRINITY GARZA [address] [place] [address] Blvd PHYS: ROBINBA. - Maude,Rodney Forrester, [place] [address] : 1945 AGE: 75 SEX: M ACCT NO: B [id number] LOC: OSMAN PHONE #: [phone] EXAM DATE: 10/29/2020 STATUS: REG ER FAX #: [phone] RAD #: D/C DT PAGE 3 Signed [id number] 15:24:00 Test Item Value Reference Range Interpretation [...] change s in troponin levelscharacter istic of [place]. ADD-ONCOMPREHENSIVE METABOLIC [id number] 14:42:00 Test Item Value Reference Range Interpretation [...] 1 NORMAL code = LIPINDEX) MG Index/DL [id number] 14:42:00 Test Item Value Reference Range Interpretation Comments LIPASE (test code = LIP) 141 Unit/L 114-286 N COMPREHENSIVE METABOLIC [id number] 14:39:00 Test Item Value Reference Range Interpretation [...] <50 MG 1 NORMAL = LIPINDEX) Index/DL [id number] 14:39:00 Test Item Value Reference Range Interpretation Comments LIPASE (test code = LIP) Unit/L 114-286 - XR CHEST 1 [id number] 14:36:00 [facility] : 1945 Sex: M FAX: Yolanda Olea [phone] [place]: [address]: PRE Patient Name: TRINITY GARZA Unit No: [id number] EXAMS: CPT CODE: [id number] XR CHEST 1 V 55226 Dictation location: S17. CHEST, FRONTAL VIEW HISTORY: [...] By: [email or web address] Orig Print D/T: S: 06/11/2020 (3840) PETER Forrester NAME: TRINITY GARZA [address] [place] [address] Blvd PHYS: Yolanda [place], [place] [address] : 1945 AGE: 75 SEX: M LOC: OSMAN PHONE #: [phone] EXAM DATE: 06/11/2020 STATUS: PRE ER FAX #: [phone] RAD NO: DC Dt: PAGE 1 Signed ReportURINALYSIS [id number] 14:31:00 Test Item Value Reference Range Interpretation [...] = RARE /LPF NONE MUCU) CBC W/AUTO [id number] 14:23:00 Test Item Value Reference Range Interpretation [...] = 0.00 K/mm3 0.00-0.05 N NRBC#) Coronavirus 2018 nCoV [id number] 22:18:00 Test Item Value Reference Range Interpretation Comments Coronavirus 2019 nCoV Bedside (test Negative Neg code = [id number]) Testing Criteria: [id number] 22:12:00 Test Item Value Reference Range Interpretation Comments ALCOHOL (test code = 184 MG/DL 0-10 H MEDICAL ALCOHOL ALC) RESULTS. SITE W PREPPED WITH BE TADINE. <10 MG/DL ARE CONSIDERED NEGA TIVE. >400 MG/DL MAY BE FATAL.RESULTS F OR MEDICAL USE ONL Y. NOT TO BE USED FOR FORENSIC PURPOSES. BASIC METABOLIC [id number] 22:05:00 Test Item Value Reference Range Interpretation [...] MG 1 NORMAL code = LIPINDEX) Index/DL [id number] 22:05:00 Test Item Value Reference Range Interpretation [...] change s in troponin levelscharacter istic of [place]. BASIC METABOLIC [id number] 22:01:00 Test Item Value Reference Range Interpretation [...] MG 1 NORMAL code = LIPINDEX) Index/DL [id number] 22:01:00 Test Item Value Reference Range Interpretation Comments TROPONIN-I (test code = TROPI) NG/ML 0.000-0.045 CBC W/O [id number] 21:32:00 Test Item Value Reference Range Interpretation [...] 7.6-10.4 N MPV) - XR CHEST 1 [id number] 21:29:00 FAX: Yobany Roberson MD [phone] [place]: E St: REG Patient Name: TRINITY GARZA Unit No: [id number] EXAMS: CPT CODE: [id number] XR CHEST 1 V 28365 CHEST X-RAY 1 VIEW Dictation Location: N13 [...] 03/23/2020 (2131) PETER Forrester NAME: TRINITY GARZA [address] PHYS: BENNY. - Yobany [place], [place] [address] :1945 AGE: 75 SEX: M LOC: B.ERS PHONE #: [phone] EXAM DATE: 03/23/2020 STATUS: REG ER FAX #: [phone] RAD NO: DC Dt: PAGE 1 Signed ReportMRI Brain wo contrast [id number] 10:00:00EXAM: MRI BRAIN WITHOUT CONTRASTDATE: 09/26/2018 10:00 [...] 09/26/1913:17FINAL REPORTUn[facility] PhysiciansTobacco Use [id number] 10:00:00 Test Item Value Reference Range Interpretation Comments Completed (test code = Completed) DONE [facility]
[2021-09-21 10:49] LABS: Absolute Lymphocytes (CBC) 1.2 K/uL (0.7-4.9); Hematocrit 33.7 % (39.6-49.0); Lymphocytes % 18.9 % (15.3-44.8); MPV 6.7 fL (7.6-11.3); RBC Red Blood Cell Count 3.44 M/uL (4.33-5.43)
[2021-09-21 10:53] LABS: Protime INR 1.23
--- NOTE | 2021-09-21 11:03 | RAD REPORT ---
EXAM DESCRIPTION: RAD - Chest Single View - 09/21/2021 10:48 am CLINICAL HISTORY: CHEST PAIN COMPARISON: Chest Single View dated 08/10/2021; Chest Single View dated 08/08/2021; Chest Single Vie w dated 11/11/2020 FINDINGS: Lines: Pacemaker. ACDF in the cervical spine. Lungs: No evidence of edema or pneumonia. Pleural: No significant pleural effusions or pneumothorax. Cardiac: The heart size is within normal limits. Bones: No acute fractures. Other: IMPRESSION: No acute cardiopulmonary disease.
[2021-09-21 11:21] LABS: Bilirubin Direct 0.1 mg/dL (0-0.2); Bilirubin Total 0.5 mg/dL (0.2-1.0); Potassium 4.3 mmol/L (3.5-5.1); Protein, Total 7.2 g/dL (6.4-8.2); Troponin High Sensitivity 44.1 pg/mL (<58.9)
--- NOTE | 2021-09-21 11:44 | EDPHYS ---
Physician Documentation [facility] Name: Иван Vickers Age: 76 yrs Sex: Male : 1945 Arrival Date: 09/21/2021 Time: 10:33 Bed 6 Private MD: ED Physician Isabell Romero HPI: 09/21 11:04 This 76 yrs old Male presents to ER via EMS with complaints of Chest Pain. ma2 11:04 The patient or guardian reports chest pain that is located primarily in the substernal ma2 area. Onset: gradually, 1 day(s) ago. Associated signs and symptoms: Pertinent negatives: diaphoresis, headache, lower extremity swelling, nausea. Severity of pain: At its worst the pain was moderate in the emergency department the pain is unchanged. Historical: - Allergies: 10:36 No Known Allergies; bp - Home Meds: 10:36 lisinopril 20 mg Oral tab 1 tab twice a day [Active]; Eliquis 5 mg Oral tab 2 tabs 2 bp times per day [Active]; - PMHx: 10:36 aortic valve problem; Arthritis; Hypertensive disorder; Pacemaker; Atrial fibrillation; bp Dementia; - Immunization history:: Adult Immunizations up to date. - Social history:: Smoking status: Patient denies any tobacco usage or history of. - Family history:: not pertinent. ROS: 11:04 Constitutional: Negative for fever, chills, and weight loss. ma2 11:04 All other systems are negative. Exam: 11:04 Constitutional: This is a well developed, well nourished patient who is awake, alert, ma2 and in no acute distress. Chest/axilla: Pacemaker left upper chest in good condition normal chest wall appearance and motion. Nontender with no deformity. No lesions are appreciated. Cardiovascular: Regular rate and rhythm with a normal S1 and S2. No gallops, murmurs, or rubs. Normal PMI, no JVD. No pulse deficits. Respiratory: Lungs have equal breath sounds bilaterally, clear to auscultation and percussion. No rales, rhonchi or wheezes noted. No increased work of breathing, no retractions or nasal flaring. Abdomen/GI: Soft, non-tender, with normal bowel sounds. No distension or tympany. No guarding or rebound. No evidence of tenderness throughout. Back: No spinal tenderness. No costovertebral tenderness. Full range of motion. Neuro: Awake and alert, GCS 15, oriented to person, place, time, and situation. Cranial nerves II-XII grossly intact. Motor strength 5/5 in all extremities. Sensory grossly intact. Cerebellar exam normal. Normal gait. Vital Signs: 10:34 BP 120 / 76; Pulse 75; Resp 16; Temp 98.7; Pulse Ox 99% ; bp 17:52 BP 147 / 91; Pulse 86; Pulse Ox 100% on R/A; ap3 MDM: 10:39 Patient medically screened. ma2 11:42 Differential diagnosis: abnormal EKG, gastroesophageal reflux disease (GERD), stable ma2 angina. The patient was given aspirin in the Emergency Department. Data reviewed: vital signs, nurses notes, EMS record. Counseling: I had a detailed discussion with the patient and/or guardian regarding: the historical points, exam findings, and any diagnostic results supporting the discharge/admit diagnosis, the presence of at least one elevated blood pressure reading (>120/80) during this emergency department visit, the need for outpatient follow up. 09/21 10:33 Order name: Basic Metabolic Panel bp 09/21 10:33 Order name: CBC with Diff bp 09/21 10:33 Order name: LFT's bp 09/21 10:33 Order name: Magnesium bp 09/21 10:33 Order name: NT PRO-BNP bp 09/21 10:33 Order name: PT-INR bp 09/21 10:33 Order name: Troponin HS bp 09/21 10:38 Order name: Basic Metabolic Panel EDMS 09/21 10:38 Order name: CBC with Automated Diff; Complete Time: 11:03 EDMS 09/21 10:38 Order name: Liver (Hepatic) Function EDMS 09/21 10:38 Order name: Magnesium EDMS 09/21 10:38 Order name: NT PRO-BNP EDMS 09/21 10:38 Order name: Protime (+INR); Complete Time: 11:03 EDMS 09/21 10:38 Order name: Troponin High Sensitivity EDMS 09/21 10:33 Order name: XRAY Chest (1 view); Complete Time: 11:03 bp 09/21 10:33 Order name: EKG; Complete Time: 10:38 bp 09/21 10:33 Order name: Cardiac monitoring; Complete Time: 10:34 bp 09/21 10:33 Order name: EKG - Nurse/Tech; Complete Time: 10:34 bp 09/21 10:33 Order name: IV Saline Lock; Complete Time: 10:34 bp 09/21 10:33 Order name: Labs collected and sent; Complete Time: 10:45 bp 09/21 10:33 Order name: O2 Per Protocol; Complete Time: 10:33 bp 09/21 10:33 Order name: O2 Sat Monitoring; Complete Time: 10:33 bp 09/21 10:43 Order name: COVID-19/FLU A+B (Document "Date of Onset" if Symptomatic) vg1 09/21 17:13 Order name: CONS Physician Consult EDIL 09/21 17:13 Order name: Echo with Doppler EDIL 09/21 17:16 Order name: Lipid Profile EDIL 09/21 17:16 Order name: Thyroid Stimulating Hormone EDIL Administered Medications: No medications were administered Disposition Summary: 09/21/21 11:43 Hospitalization Ordered Hospitalization Status: Observation ma2 Provider: Aman Prasad Location: Telemetry/MedSurg (observation) ma2 Condition: Stable ma2 Problem: new ma2 Symptoms: are unchanged ma2 Bed/Room Type: Standard [facility] Room Assignment: [facility](09/21/21 18:56) bd Diagnosis - Chest pain, unspecified ma2 Forms: - Medication Reconciliation Form ma2 - SBAR form ma2 Signatures: Dispatcher [employer] EDIL Dorinda Brooks Brian, RN RN bp Alzahri, Mohammad, MD MD ma2 Corrections: (The following items were deleted from the chart) 18:56 11:43 ma2 bd
--- NOTE | 2021-09-21 11:44 | ER ---
Nurse's Notes [facility] Name: Иван Vickers Age: 76 yrs Sex: Male : 1945 Arrival Date: 09/21/2021 Time: 10:33 Bed 6 Private MD: Diagnosis: Chest pain, unspecified Presentation: 09/21 10:34 Chief complaint: EMS states: INTERMITTENT SUBSTERNAL CHEST PAIN SINCE THIS MORNING WITH bp SOB. Coronavirus screen: shortness of breath, Client presents with at least one sign or symptom that may indicate coronavirus-19. Standard/surgical mask placed on the client. Provider contacted for isolation considerations. Ebola Screen: No symptoms or risks identified at this time. Initial Sepsis Screen: Does the patient meet any 2 criteria? No. Patient's initial sepsis screen is negative. Does the patient have a suspected source of infection? No. Patient's initial sepsis screen is negative. Risk Assessment: Do you want to hurt yourself or someone else? Patient reports no desire to harm self or others. Onset of symptoms was September 21, 2021. Care prior to arrival: IV initiated. 18 GA, in the left forearm, Glucose check: 80. 10:34 Method Of Arrival: EMS: [facility] bp 10:34 Acuity: RENALDO 2 bp Triage Assessment: 10:36 General: Appears in no apparent distress. comfortable, Behavior is calm, cooperative, bp appropriate for age. Pain: Complains of pain in chest. EENT: No deficits noted. Neuro: Level of Consciousness is Oriented to person, situation. Cardiovascular: Rhythm is atrial fibrillation. Historical: - Allergies: 10:36 No Known Allergies; bp - Home Meds: 10:36 lisinopril 20 mg Oral tab 1 tab twice a day [Active]; Eliquis 5 mg Oral tab 2 tabs 2 bp times per day [Active]; - PMHx: 10:36 aortic valve problem; Arthritis; Hypertensive disorder; Pacemaker; Atrial fibrillation; bp Dementia; - Immunization history:: Adult Immunizations up to date. - Social history:: Smoking status: Patient denies any tobacco usage or history of. - Family history:: not pertinent. Screenin:44 Abuse screen: Denies threats or abuse. Denies injuries from another. Nutritional bp screening: No deficits noted. Tuberculosis screening: No symptoms or risk factors identified. Fall Risk None identified. Assessment: 10:44 General: SEE TRIAGE NOTE. bp 17:52 Reassessment: Patient and/or family updated on plan of care and expected duration. Pain ap3 level reassessed. Patient is alert, oriented x 3, equal unlabored respirations, skin warm/dry/pink. Patient states symptoms have improved. 18:40 General: provided patient with food. . ap3 19:22 Pain: Denies pain. st1 19:22 Pain: Pain began suddenly. st1 Vital Signs: 10:34 BP 120 / 76; Pulse 75; Resp 16; Temp 98.7; Pulse Ox 99% ; bp 17:52 BP 147 / 91; Pulse 86; Pulse Ox 100% on R/A; ap3 ED Course: 10:33 Patient arrived in ED. ds1 10:33 Arthur Underwood, TOMASZ is Primary Nurse. bp 10:35 Triage completed. bp 10:36 Arm band placed on. bp 10:39 Isabell Romero MD is Attending Physician. ma2 10:44 Patient has correct armband on for positive identification. Bed in low position. Call bp light in reach. Side rails up X2. supervisor inspecting on. Pulse ox on. NIBP on. 10:44 Maintain EMS IV. Dressing intact. Gauge \\T\\ site: 18 GA LEFT FA. bp 10:48 XRAY Chest (1 view) In Process Unspecified. EDMS 11:20 Basic Metabolic Panel Sent. bp 11:20 CBC with Diff Sent. bp 11:20 LFT's Sent. bp 11:20 Troponin HS Sent. bp 11:20 PT-INR Sent. bp 11:20 NT PRO-BNP Sent. bp 11:20 Magnesium Sent. bp 11:43 Aman Prasad MD is Hospitalizing Provider. ma2 19:19 1910: the patient came to the nurses station stating " if I don't go upstairs now I st1 will be reporting you to the paper and social media, I know how this works and this is not my first time." The patients behavior is agitated and angry. 19:22 No provider procedures requiring assistance completed. st1 19:22 Patient maintains SpO2 saturation greater than 95% on room air. st1 19:26 Patient admitted, IV remains in place. st1 19:27 the patient did not allow the RN to repeat a set of vital signs. TOMASZ Yancey 2nd floor st1 staff nurse was made aware. Administered Medications: No medications were administered Outcome: 11:43 Decision to Hospitalize by Provider. ma2 19:26 Admitted to Med/surg accompanied by tech, via wheelchair, room 225, with chart, Report st1 called to TOMASZ Yancey 19:26 Condition: stable 19:26 Instructed on the need for admit. 19:29 Patient left the ED. st1 Signatures: Dispatcher [employer] EDDC Zabrina Perez ds1 Arthur Underwood, RN RN bp Isabell Romero MD MD ma2 Trina Rand RN RN ap3 Senait Berman RN RN st1
[2021-09-21 12:34] LABS: SARS-COV-2 RT PCR NEGATIVE (NEGATIVE)
--- NOTE | 2021-09-21 17:26 | P.HP ---
Certification for Inpatient Patient admitted to: Observation With expected LOS: <2 Midnights Patient will require the following post-hospital care: None Practitioner: I am a practitioner with admitting privileges, knowledge of patient current condition, hospital course, and medical plan of care. Services: Services provided to patient in accordance with Admission requirements found in Title 42 Section 412.3 of the Code of Federal Regulations Patient History Date of Service: 09/21/21 Primary Care Provider: Shanice Reason for admission: Unstable angina History of Present Illness: Patient is a pleasant gentleman who recently moved to this area. The patient has a history of atrial fib, copd and htn. He woke up last night with chest pain. The patient has some sharp pain which lasted a few minutes. The patient has not any repeat of this problem. He does not have a local pcp or dermatology physician assistant. He also has complaints of chronic left shoulder pain which he has seen Dr. Gomez in the past. Allergies No Known Allergies Allergy (Unverified 08/08/21 14:58) Home Medications: Apixaban [Eliquis] 1 tab PO BID 08/08/21 Hydrocodone Bit/Acetaminophen [Hydrocodon-Acetaminophn 10-325] 1 tab PO BID 08/08/21 Lisinopril [Zestril] 1 tab PO BID 08/08/21 Tamsulosin [Flomax*] 1 tab PO DAILY 08/08/21 - Past Medical/Surgical History -: Aortic stenosis -: Hypertension -: Status post pacemaker - Family History Father -: Heart disease - Social History Alcohol use: Yes CD- Drugs: No Review of Systems 10-point ROS is otherwise unremarkable Cardiovascular: Chest Pain Physical Examination - Physical Exam General: Alert, In no apparent distress HEENT: Atraumatic, PERRLA, Mucous membr. moist/pink, EOMI, Sclerae nonicteric Neck: Supple, 2+ carotid pulse no bruit, No LAD, Without JVD or thyroid abnormality Respiratory: Clear to auscultation bilaterally, Normal air movement Cardiovascular: Regular rate/rhythm, Normal S1 S2 Gastrointestinal: Normal bowel sounds, No tenderness Musculoskeletal: No tenderness Integumentary: No rashes Neurological: Normal gait, Normal speech, Normal strength at 5/5 x4 extr, Normal tone, Normal affect Lymphatics: No axilla or inguinal lymphadenopathy - Studies Laboratory Data (last 24 hrs) 09/21/21 10:30: PT 14.2 H, INR 1.23 09/21/21 10:30: WBC 6.50, Hgb 11.3 L, Hct 33.7 L, Plt Count 164 09/21/21 10:30: Sodium 130 L, Potassium 4.3, BUN 21 H, Creatinine 0.91, Glucose 94, Total Bilirubin 0.5, AST 20, ALT 24, Alkaline Phosphatase 82 Assessment and Plan - Problems (Diagnosis) (1) Unstable angina Current Visit: Yes Status: Acute Plan: will do serial troponins. Consult to Dr. Mckee. Will check an echocardiogram (2) Atrial fibrillation Current Visit: Yes Status: Acute Plan: see above Qualifiers: Atrial fibrillation type: paroxysmal Qualified Code(s): I48.0 - Paroxysmal atrial fibrillation (3) COPD (chronic obstructive pulmonary disease) Current Visit: Yes Status: Chronic Plan: Patient is stable at this time. Only uses albuterol. No longer smoking Qualifiers: COPD type: chronic bronchitis (4) Hypertension Current Visit: No Status: Acute Plan: continue lisinopril Qualifiers: Hypertension type: primary hypertension Qualified Code(s): I10 - Essential (primary) hypertension Discharge Plan: Home Plan to discharge in: 24 Hours - Advance Directives Does patient have a Living Will: No Does patient have a Durable POA for Healthcare: No - Code Status/Comfort Care Code Status Assessed: Yes Code Status: Full Code Physician Review: Patient Assessed, Agree with Above Assessment and Plan Critical Care: No Time Spent Managing Pts Care (In Minutes): 45
[2021-09-21] MEDS: HYDROCODONE/APAP 10/325 TAB PO SCH (20:00)
[2021-09-21] MEDS: lisinopriL 20 MG TAB PO SCH (20:01)
[2021-09-21] MEDS: APIXABAN 5 MG TABLET PO SCH (20:01)
[2021-09-21 22:35] LABS: Magnesium 1.9
[2021-09-21 23:22] VITALS: BMI 20.3
[2021-09-22 08:12] LABS: Thyroid Stimulating Hormone 2.84 uIU/mL (0.360-3.740)
[2021-09-22] MEDS: TAMSULOSIN 0.4 MG SR CAP PO SCH (09:00)
[2021-09-22] MEDS: HYDROCODONE/APAP 10/325 TAB PO SCH ×2 (09:06→20:49)
[2021-09-22] MEDS: lisinopriL 20 MG TAB PO SCH ×2 (09:06→20:49)
[2021-09-22] MEDS: APIXABAN 5 MG TABLET PO SCH ×2 (09:09→20:49)
--- NOTE | 2021-09-22 12:06 | P.PN ---
Subjective Date of Service: 09/22/21 Primary Care Provider: Shanice Chief Complaint: Unstable angina Subjective: No new changes (troponin bumped) Review of Systems 10-point ROS is otherwise unremarkable Musculoskeletal: Shoulder Pain (left shoulder pain ) Physical Examination - Vital Signs Temperature: 97.8 F Blood Pressure: 134/78 Pulse: 94 Respirations: 18 Pulse Ox (%): 99 - Physical Exam General: Alert, In no apparent distress HEENT: Atraumatic, PERRLA, EOMI Neck: Supple, JVD not distended Respiratory: Clear to auscultation bilaterally, Normal air movement Cardiovascular: Regular rate/rhythm, Normal S1 S2 Gastrointestinal: Normal bowel sounds, No tenderness Musculoskeletal: No tenderness Integumentary: No rashes Neurological: Normal speech, Normal tone, Normal affect Lymphatics: No axilla or inguinal lymphadenopathy - Studies Laboratory Data (last 24 hrs) 09/21/21 10:30: Magnesium 1.9 Assessment And Plan - Current Problems (Diagnosis) (1) Unstable angina Current Visit: Yes Status: Acute Plan: will do serial troponins. Consult to Dr. Mckee. Will check an echocardiogram 2/3 Will discuss his troponin bump with Dr. Benavidez (2) Atrial fibrillation Current Visit: Yes Status: Acute Plan: see above Qualifiers: Atrial fibrillation type: paroxysmal Qualified Code(s): I48.0 - Paroxysmal atrial fibrillation (3) COPD (chronic obstructive pulmonary disease) Current Visit: Yes Status: Chronic Plan: Patient is stable at this time. Only uses albuterol. No longer smoking Qualifiers: COPD type: chronic bronchitis (4) Hypertension Current Visit: No Status: Acute Plan: continue lisinopril Qualifiers: Hypertension type: primary hypertension Qualified Code(s): I10 - Essential (primary) hypertension Physician Review: Patient Assessed, Agree with Above Assessment and Plan
[2021-09-22 14:21] VITALS: O2SAT 98
[2021-09-22] MEDS: HYDROMORPHONE HCL 0.5 MG/0.5 ML INJ IV PRN (15:58)
--- NOTE | 2021-09-22 17:10 | CON ---
Date of Consultation: 09/22/2021 Reason For Consultation: Chest pain. History Of Present Illness: This is an elderly male, who comes in with chest pain that moves to his shoulder. It is sharp in nature, lasts for few minutes, and it is happening on and off. The patient is known to have history of aortic valve stenosis, status post aortic valve replacement. He has a t issue valve. This was done more than 5 to 6 years ago and he has pacemaker implanted. Past Medical History: Aortic valve stenosis, hypertension, and status post pacemaker implantation. Medications: Refer to reconciliation sheet for detailed list. Allergies: NO KNOWN DRUG ALLERGIES. Family History: No premature coronary artery disease or cancer. Social History: Does not smoke or drink. Does not use any drugs. Review of Systems: All systems reviewed and they were negative except for what mentioned in HPI. Physical Examination: Vital Signs: Reviewed. Head and Neck: Pupils are equal, reactive to light. Intact eye movements. No JVD. No cervical lym phadenopathy. Neck is supple. Thyroid is not enlarged. Lungs: Clear to auscultation bilaterally. No rhonchi, rales, or crackles. No accessory muscle use. Heart: Regular rate and rhythm. No extra sounds. Abdomen: Soft, nontender. Bowel sounds positive. No organomegaly. No masses or hernia. No rigidi ty or rebound. Extremities: No edema, clubbing, or cyanosis. Intact pulses. Skin: No rash. Neuro: Alert, awake, oriented x3. No acute focal deficits appreciated. Assessment And Recommendations: Chest pain with elevated troponin, possible acute coronary syndrome versus demand. The patient had aortic valve replaced about 5 to 6 years ago, so he must have had an angiogram done, but he does not recall the status of his coronary arteries. As such, I will trend th e troponin further until start speaking down, obtain echocardiogram, start at home on aspirin and use nitrates for pain control as well as morphine sulfate and recommend to do a cardiac nuclear stress t est to evaluate for presence of ischemia. If stress test is positive, then coronary angiogram will b e recommended. SR/MODL Voice ID: [id number] Report ID: [id number]
[2021-09-23] MEDS ORDERED: guaiFENesin 100 MG/5 ML UCUP PO PRN (04:21)
--- NOTE | 2021-09-23 07:10 | ECHO ---
HEIGHT: 5 ft 7 in WEIGHT: 129 lb 13.636 oz DATE OF STUDY: 09/22/[address]: Aman Prasad MD 2-DIMENSIONAL: YES M.MODE: YES DOPPLER: YES COLOR FLOW: YES TDS: NO PORTABLE: NO DEFINITY: NO BUBBLE STUDY: NO DIAGNOSIS: UNSTABLE ANGINA, ATRIAL FIBRILLATION CARDIAC HISTORY: CATHERIZATION: NO SURGERY: NO PROSTHETIC VALVE: PACEMAKER: YES MEASUREMENTS (cm) DIASTOLIC (NORMALS) SYSTOLIC (NORMALS) IVSd 1.1 (0.6-1.2) LA Diam 3.3 (1.9-4.0) LVEF 57% LVIDd 3.6 (3.5-5.7) LVIDs 2.5 (2.0-3.5) %FS 29% LVPWd 1.2 (0.6-1.2) Ao Diam 3.2 (2.0-3.7) 2 DIMENSIONAL ASSESSMENT: RIGHT ATRIUM: NORMAL LEFT ATRIUM: NORMAL RIGHT VENTRICLE: NORMAL LEFT VENTRICLE: NORMAL TRICUSPID VALVE: MITRAL VALVE: NORMAL PULMONIC VALVE: NORMAL AORTIC VALVE: BIOPROSTHESIS PERICARDIAL EFFUSION: NONE AORTIC ROOT: NORMAL LEFT VENTRICULAR WALL MOTION: NORMAL DOPPLER/COLOR FLOW: SEE BELOW COMMENTS: NORMAL LEFT VENTRICULAR EJECTION FRACTION 55-60%. AORTIC VALVE BIOPROSTHESIS IS FUNCTIONING NORMAL. MILD AORTIC, MITRAL AND TRICUSPID REGURGITATION. TECHNOLOGIST: Vielka GARCIA
[2021-09-23] MEDS ORDERED: REGADENOSON 0.4 MG/5 ML SYR IV ONE (08:00)
[2021-09-23] MEDS: APIXABAN 5 MG TABLET PO SCH ×2 (08:07→20:19)
[2021-09-23] MEDS: lisinopriL 20 MG TAB PO SCH ×2 (08:07→20:19)
[2021-09-23] MEDS: TAMSULOSIN 0.4 MG SR CAP PO SCH (08:07)
[2021-09-23] MEDS: HYDROCODONE/APAP 10/325 TAB PO SCH ×2 (09:55→20:19)
--- NOTE | 2021-09-23 11:47 | P.PN ---
Subjective Date of Service: 09/23/21 Primary Care Provider: Shanice Chief Complaint: Unstable angina Subjective: No new changes Review of Systems 10-point ROS is otherwise unremarkable Musculoskeletal: Shoulder Pain (left shoulder pain ) Physical Examination - Vital Signs Temperature: 98.6 F Blood Pressure: 121/65 Pulse: 77 Respirations: 18 Pulse Ox (%): 98 - Physical Exam General: Alert, In no apparent distress HEENT: Atraumatic, PERRLA, EOMI Neck: Supple, JVD not distended Respiratory: Clear to auscultation bilaterally, Normal air movement Cardiovascular: Regular rate/rhythm, Normal S1 S2 Gastrointestinal: Normal bowel sounds, No tenderness Musculoskeletal: No tenderness Integumentary: No rashes Neurological: Normal speech, Normal tone, Normal affect Lymphatics: No axilla or inguinal lymphadenopathy Assessment And Plan - Current Problems (Diagnosis) (1) Unstable angina Current Visit: Yes Status: Acute Plan: will do serial troponins. Consult to Dr. Mckee. Will check an echocardiogram 2/4 Await the results of the nuclear study. He has a bioprosthetic valve. (2) Atrial fibrillation Current Visit: Yes Status: Acute Plan: see above Qualifiers: Atrial fibrillation type: paroxysmal Qualified Code(s): I48.0 - Paroxysmal atrial fibrillation (3) COPD (chronic obstructive pulmonary disease) Current Visit: Yes Status: Chronic Plan: Patient is stable at this time. Only uses albuterol. No longer smoking Qualifiers: COPD type: chronic bronchitis (4) Hypertension Current Visit: No Status: Acute Plan: continue lisinopril Qualifiers: Hypertension type: primary hypertension Qualified Code(s): I10 - Essential (primary) hypertension (5) Right shoulder pain Current Visit: Yes Status: Chronic Plan: Has been seen in the past by Dr. Neal. Will have the patient follow up in the office. We can give him a shoulder injection and referral to Dr. Neal as an outpatient. Qualifiers: Chronicity: chronic Qualified Code(s): M25.511 - Pain in right shoulder; G89.29 - Other chronic pain Discharge Plan: Home Plan to discharge in: 24 Hours - Code Status/Comfort Care Code Status Assessed: No Physician Review: Patient Assessed, Agree with Above Assessment and Plan Critical Care: No Time Spent Managing PTS Care (In Minutes): 20
--- NOTE | 2021-09-23 12:39 | RAD REPORT ---
EXAM DESCRIPTION: NM - Rest Stress Cardiac Imaging - 09/23/2021 10:56 am CLINICAL HISTORY: CHEST PAIN Chest pain. COMPARISON: No comparisons TECHNIQUE: The patient was administered approximately 10mCi of Tc 99m Sestamibi prior to resting SPE CT imaging of the heart. The patient was then administered approximately 30 mCi of Tc 99m Sestamibi f ollowing exercise or pharmacologic stress. Multiplanar SPECT images were reviewed. FINDINGS: No stress induced ischemic defect is seen to suggest stress induced ischemia. Diminished r adiopharmaceutical accumulation is seen in the LV inferior wall with both rest and stress suggesting scar tissue from prior infarction. The end diastolic volume is 112 ml, the end systolic volume is 54 ml, and the ejection fraction is 52 %. IMPRESSION: No stress induced ischemia. 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
--- NOTE | 2021-09-23 15:07 | TREADPHA ---
DX: CHEST PAIN Date of Study: 09/23/2021 Ht: 5' 7 " Wt: 129 lb 13.636 oz Consulting Physician: TAWNY MEDICATIONS: ELIQUIS, LISINOPRIL HISTORY: 76 YEAR OLD MALE WITH COMPLAINTS OF CHEST PAIN AND SHORTNESS OF BREATH. HISTORY OF PACEMAKER, NO SMOKING OR DRINKING. PHYSICIAL EXAMINATION: RESTING B.P.: 117/69 RESTING H.R.: 76 RESTING EKG: PACED RHYTHM. PROTOCOL: LEXISCAN EXERCISE TIME: 3:30 B.P. AT PEAK STRESS: 89/66 IMPRESSION: LEXISCAN INJECTED. CARDIOLITE INJECTED PER PROTOCOL. SEE NUCLEAR MEDICINE REPORT. NO SUPRAVENTRICULAR OR VENTRICULAR TACHYCARDIA NOTED. OCCASIONAL PREMATURE VENTRICULAR COMPLEXES NOTED. PATIENT HAS PACEMAKER. PATIENT REPORTS CHEST TIGHTNESS THROUGHOUT PROCEDURE.
[2021-09-24] MEDS: HYDROMORPHONE HCL 0.5 MG/0.5 ML INJ IV PRN (00:03)
[2021-09-24] MEDS: TAMSULOSIN 0.4 MG SR CAP PO SCH (09:00)
[2021-09-24] MEDS: HYDROCODONE/APAP 10/325 TAB PO SCH (09:18)
[2021-09-24] MEDS: APIXABAN 5 MG TABLET PO SCH (09:19)
[2021-09-24] MEDS: lisinopriL 20 MG TAB PO SCH (09:19)
--- NOTE | 2021-09-24 09:58 | P.DS ---
Admission Date: 09/22/21 Discharge Date: 09/24/21 Primary Care Provider: Shanice Disposition: ROUTINE DISCHARGE Discharge Condition: GOOD Reason for Admission: Unstable angina - Problems (1) Unstable angina Current Visit: Yes Status: Acute (2) Atrial fibrillation Current Visit: Yes Status: Acute Qualifiers: Atrial fibrillation type: paroxysmal Qualified Code(s): I48.0 - Paroxysmal atrial fibrillation (3) COPD (chronic obstructive pulmonary disease) Current Visit: Yes Status: Chronic Qualifiers: COPD type: chronic bronchitis (4) Hypertension Current Visit: No Status: Acute Qualifiers: Hypertension type: primary hypertension Qualified Code(s): I10 - Essential (primary) hypertension (5) Right shoulder pain Current Visit: Yes Status: Chronic Qualifiers: Chronicity: chronic Qualified Code(s): M25.511 - Pain in right shoulder; G89.29 - Other chronic pain Brief History of Present Illness: Patient is a pleasant gentleman who recently moved to this area. The patient has a history of atrial fib, copd and htn. He woke up last night with chest pain. The patient has some sharp pain which lasted a few minutes. The patient has not any repeat of this problem. 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 He also has complaints of chronic left shoulder pain which he has seen Dr. Gomez in the past. Hospital Course: Patient was admitted for unstable angina. He had a troponin. Bump he has a bioprosthetic valve. Stress test was negative for ischemia. Will discuss him with Dr. Mckee. If no objections we can send him home. The patient can follow up in the office. Will monitor his heart disease and refer him to Dr. Gomez for his shoulder. Vital Signs/Physical Exam: Temp Pulse Resp BP Pulse Ox 98.2 F 77 18 132/65 97 09/24/21 04:00 09/24/21 09:19 09/24/21 09:18 09/24/21 09:19 09/24/21 09:18 General: Alert, In no apparent distress HEENT: Atraumatic, PERRLA, EOMI Neck: Supple, JVD not distended Respiratory: Clear to auscultation bilaterally, Normal air movement Cardiovascular: Regular rate/rhythm, Normal S1 S2 Gastrointestinal: Normal bowel sounds, No tenderness Musculoskeletal: No tenderness Integumentary: No rashes Neurological: Normal speech, Normal tone, Normal affect Lymphatics: No axilla or inguinal lymphadenopathy Laboratory Data at Discharge: WBC 6.50 K/uL (4.3-10.9) 09/21/21 10:30 Hgb 11.3 g/dL (13.6-17.9) L 09/21/21 10:30 Hct 33.7 % (39.6-49.0) L 09/21/21 10:30 Plt Count 164 K/uL (152-406) 09/21/21 10:30 PT 14.2 SECONDS (9.5-12.5) H 09/21/21 10:30 INR 1.23 09/21/21 10:30 Sodium 130 mmol/L (136-145) L 09/21/21 10:30 Potassium 4.3 mmol/L (3.5-5.1) 09/21/21 10:30 BUN 21 mg/dL (7-18) H 09/21/21 10:30 Creatinine 0.91 mg/dL (0.55-1.3) 09/21/21 10:30 Glucose 94 mg/dL (74-106) 09/21/21 10:30 Magnesium 1.9 09/21/21 10:30 Total Bilirubin 0.5 mg/dL (0.2-1.0) 09/21/21 10:30 AST 20 U/L (15-37) 09/21/21 10:30 ALT 24 U/L (12-78) 09/21/21 10:30 Alkaline Phosphatase 82 U/L (45-117) 09/21/21 10:30 Triglycerides 51 mg/dL (<150) 09/22/21 06:32 Cholesterol 145 mg/dL (<200) 09/22/21 06:32 HDL Cholesterol 42 mg/dL (40-60) 09/22/21 06:32 Cholesterol/HDL Ratio 3.45 09/22/21 06:32 Home Medications: Apixaban [Eliquis] 1 tab PO BID 08/08/21 Hydrocodone Bit/Acetaminophen [Hydrocodon-Acetaminophn 10-325] 1 tab PO BID 08/08/21 Lisinopril [Zestril] 1 tab PO BID 08/08/21 Tamsulosin [Flomax*] 1 tab PO DAILY 08/08/21 Diet: AHA Activity: Ad martina Followup: Shanice,Aman, MD [ACTIVE - CAN ADMIT] - 1 Week Physician Review: Patient Assessed, Agree with Above Assessment and Plan Time spent managing pt's care (in minutes): 30
[2021-09-24 17:06] VITALS: BP 114/59; TEMP 97.8
--- NOTE | 2021-09-24 20:04 | PN ---
The patient was admitted to Dr. Prasad and was seen by Dr. Benavidez. He has aortic valve replacement, t hat is a tissue valve. Echocardiogram showed there is normal heart function. He has a history of pa chester, had atypical chest pain. Stress test that was done yesterday showed no evidence of ischemia . He has an inferior scar. The patient is pain-free. His vital signs are stable. He is afebrile. He is in sinus rhythm. I think he can go home today. He used to follow up in [facility] for his cardiac care, but he now moved to this area and I suggest that we see him in the office as soon a s possible. He can go home today. Continue present regimen. YOUNG/OSKAR Voice ID: [id number] Report ID: [id number]
== END 2021-09-24 14:20 | disposition home or self-care (01) | DRG 311 ==
LOC: ER 10:30 → ERHOLD 17:16 → 2ND 19:14 → OBSVTOIN 09-22 14:15
PROVIDERS: ADMIT Internal Medicine; ATTEND Internal Medicine
DX: I20.0 Unstable angina (principal); I10 Essential (primary) hypertension; I48.0 Paroxysmal atrial fibrillation; M25.511 Pain in right shoulder; J42 Unspecified chronic bronchitis; Z79.899 Other long term (current) drug therapy; Z95.0 Presence of cardiac pacemaker; Z79.01 Long term (current) use of anticoagulants; Z95.2 Presence of prosthetic heart valve
CPT/HCPCS: 0240U; 36415; 71045; 78452; 80048; 80061; 80076; 83735; 83880; 84443; 84484; 85025; 85610; 93005; 93017; 93306; 99285; A9500; G0378; J1170; J2785

== ENCOUNTER 2021-11-30 19:53 | Emergency (ER) | payer OTHER ==
--- OUTSIDE RECORDS SUMMARY | 2021-11-30 19:57 | XMS REPORT | Continuity of Care Document ---
:1945 Author Organization [facility] t Address [address] [place] [address] Care Team Providers Name Role Phone Jonathan Quevedo Primary Care Physician Roque BENDER Attending Clinician Unavailable PARVEZ JANG Attending Clinician Unavailable Boby LOTT Attending Clinician Unavailable Julio MUELLER Attending Clinician CARLOS RODRIGUEZ Attending Clinician Unavailable [...] Attending Clinician Unavailable MARLON Attending Clinician Unavailable Glen Admitting Clinician Unavailable Physician, Primary or Family Admitting Clinician Unavailabl e KNOW Admitting Clinician Unavailable CARLOS RODRIGUEZ Admitting Clinician Unavailable MARGY FOOTE Admitting Clinician Unavailable Shay LEE Admitting Clinician YANNI Admitting Clinician Unavailable MD YANNI ESean Admitting Clinician Unavailable HONORIO Admitting Clinician Unavailable Payers Payer Name Policy Type Policy Number Effective Date Expiration Date Florina shaw [employer] Medicare C [id number] 2020 00:00:00 [employer] Medicare D [id number] 2017 00:00:00 [employer] Medicare C [id number] 2018 2019 00:00:00 00:00:00 HUMANA GOLD PLS [id number] 2020 HMO 00:00:00 [facility] [id number] 2020 PLUS 00:00:00 Problems Condition Condition Condition Status Onset Resolution Last Treating Co mments Source Name Details Category Date Date Treatment Clinician Date Hypertensi Hypertensi Disease Active U nivers on, on, 08-26 ity of [place] d type 00 [facility] Chronic Problem Active 2020-04-29 Tank ike obstructiv 02:45:03 l e Chronic [place] pulmonary obstructiv disease, e unspecifie pulmonary d [...] No Known DA Active U [facility] 9[facility]20 [place] 00:00: Regiona 00 [facility] No Known DA Active U [facility] 9[facility]20 [place] 00:00: Regiona 00 [facility] No Known DA Active U [facility] - [place] 00:00: Region [facility] NO KNOWN Drug Active Univers ALLERGIE Class ity of S [facility] Family History Family Member Diagnosis Comments Start Date Stop Date Source Father Family history of Univers ity of cerebrovascular [place] Phy [facility] accident (CVA) Social History Social Habit Start Date Stop Date Quantity Comments Source Exposure to Not sure [facility] SARS-CoV-2 (event) Medica Branch Tobacco use and 2021-07-13 2021-07-13 Never used [facility] exposure 00:00:00 00:00:00 [facility] Sex Ass[birth year] [facility] 00:00:00 00:00:00 Medical [place] Smoking Status Start Date Stop Date Source Tobacco smoking [facility] consumption unknown Former smoker 2021-07-13 00:00:00 2021-07-13 [place] [facility] [place] 00:00:00 [facility] Medications Ordered Filled Start Stop Current Ordering Indication Dosage Frequency Signature Comments Components Source Medication Medication Date Date Medication? Clinician (SIG) Name Name ALBUTEROL Yes Inhale. Unive rs SULFATE HFA 3-21 ity of INHALE 09:35: [address] Branch Mometasone- Yes 2{puff} Inhale 2 Univers Formoterol 3-21 Puffs. ity of 200-5 09:35: [place] mcg/actuati 05 Medical on inhaler Branch LOVAZA, Yes 2g Take 2 g [facility] s omega-3-aci 3-21 by mouth. ity of d ethyl 09:35: [place] esters, 1 05 Medical gram Branch capsule tiotropium Yes Inhale. Univ ers 18 mcg 3-21 ity of inhalation 09:35: [place] 05 [facility] Branch acetaminoph Yes [id number] 650mg Take 1 Univers en (TYLENOL 3-21 tablet by ity of ARTHRITIS 00:00: mouth [place] PAIN) 650 00 every 8 Medical mg CR (eight) Branch tablet hours as needed for Pain. dicyclomine Yes [id number] 20mg Take 1 Univers 20 mg 3-21 tablet by ity of tablet 00:00: mouth 4 [place] 00 (four) Medical times Branch daily as needed for Abdominal pain. ondansetron Yes [id number] 4mg Take 1 Univers (ZOFRAN) 4 3-21 tablet by ity of mg tablet 00:00: mouth [place] 00 every 8 Medical (eight) Branch hours as needed for Nausea and Vomiting (N/V). rivastigmin Yes 1{patch Apply 1 Univers e 4.6 mg/24 3-03 } Patch to ity of hour patch 00:00: skin [place] 00 daily. Medical Branch lisinopriL Yes [id number] 5mg Take 1 U nivers 5 mg tablet 2-24 tablet by ity of 00:00: mouth [place] 00 daily. Medical Branch apixaban 5 Yes 1230 5mg Take 1 Unive rs mg tablet 1-20 tablet by ity o f 00:00: mouth 2 [place] 00 (two) Medical times Branch daily. Indication s: artificial heart valve present atorvastati 2021- No [id number] 40mg Take 1 Univers n 40 mg 08-26 tablet by ity of tablet 00:00: 04:59 mouth [place] 00 :00 every Medical evening Branch for 90 days. carvediloL 2021- No [id number] 6.25mg Take 1 Univers 6.25 mg 08-26 tablet by ity of tablet 00:00: 04:59 mouth 2 [place] 00 :00 (two) Medical times Branch daily with meals for 90 days. levothyroxi 2021- No [id number] 50ug Take 1 Univers ne 50 mcg 08-26 tablet by ity of tablet 00:00: 04:59 mouth [place] 00 :00 every Medical morning Branch for 90 days. tamsulosin 2021- No [id number] .4mg Take 1 Univers 0.4 mg 24 08-26 capsule by ity of hr capsule 00:00: 04:59 mouth [place] 00 :00 daily for Medical 90 days. Branch traMADoL Yes Univers 200 mg 24 9-16 ity of hr tablet 00:00: [place] 00 Medical Branch Clopidogrel Clopidogrel 2017- Yes ESTEFANY 1 QD TAKE 1 Univers Bisulfate Bisulfate 2-28 JUANA M.Nidia TABLET ity of 75 MG Oral 75 MG Oral 00:00: DAILY. [place] Tablet Tablet 00 Physici ans Aspirin EC Aspirin EC 2017- Yes ESTEFANY TAKE ONE Univers Low Low [...] Immunizations Ordered Filled Immunization Date Status Comments [facility] e Immunization Name Name SARS-COV-2 COVID-19 2021-08-26 Completed Unive rsity of PFIZER VACCINE 00:00:00 [facility] Branch Vital Signs Vital Name Observation Time Observation Value Comments Source Systolic blood 2021-11-07 132 mm[Hg] University of pressure 14:35:00 [facility] Diastolic blood 2021-11-07 81 mm[Hg] [facility] f pressure 14:35:00 [facility] Heart rate 2021-11-07 91 /min [facility] 14:35:00 [facility] Body height 2021-11-07 170.2 cm University 14:35:00 [facility] Body weight 2021-11-07 60.419 kg University 14:35:00 [facility] BMI 2021-11-07 20.86 kg/m2 University 14:35:00 [facility] Oxygen saturation 2021-11-07 97 /min [facility] in Arterial blood 14:35:00 [facility] by Pulse oximetry Branch BP Systolic 2018-08-26 125 mm[Hg] Location: [facility] 10:05:00 Position: [place] Physician s Sitting BP Diastolic 2018-08-26 74 mm[Hg] [facility] 10:05:00 Position: [place] Physician s Sitting Height 2018-08-26 67 [in_us] [facility] 10:05:00 [place] Physician s Weight 2018-08-26 130.1875 [lb_av] [facility] 10:05:00 [place] Phys[facility] s Body Mass Index 2018-08-26 20.39 kg/m2 [place] Calculated 10:05:00 [place] Physician s Heart Rate 2018-08-26 63 /min Location: [facility] 10:05:00 Brachial [place] Physician s Artery; BP Systolic 2018-08-09 162 mm[Hg] Location: [facility] 13:43:00 Position: [place] Physician s Sitting BP Diastolic 2018-08-09 83 mm[Hg] Location: [facility] 13:43:00 Position: [place] Physician s Sitting Height 2018-08-09 67 [in_us] [facility] 13:43:00 [place] Physician s Weight 2018-08-09 131.375 [lb_av] [place] 13:43:00 [place] Physician s Body Mass Index 2018-08-09 20.58 kg/m2 [place] Calculated 13:43:00 [place] Physician s Heart Rate 2018-08-09 60 /min Location: [facility] 13:43:00 Radial; [place] Physician s Procedures Procedure Date / Time Performing Clinician Source Performed CBC WITH DIFF 2021-11-07 16:37:00 Keri Kim [facility] [UTP] EMG 2018-09-09 00:00:00 [facility] Physicians EMG/NCS-Arm 2018-08-27 00:00:00 [facility] Physicians [REPLACED BY [facility]] LIPID PANEL 2018-08-26 00:00:00 [facility] Physicians [REPLACED BY [facility]] HEMOGLOBIN A1c 2018-08-26 00:00:00 [facility] Physicians CT Head/Neck CTA [id number] 2018-08-26 00:00:00 [facility] Physicians MRI Brain wo contrast 2018-08-26 00:00:00 [facility] [address] Physicians History Of Prior [facility] Physicians History of Aortic Valve [facility] Replacement Physicians Plan of Care Planned Activity Planned Date Details Comments Source Diagnostic Test 2018-09-09 [UTP] EMG [code = [facility] Pending 00:00:00 [UTP] EMG] Physicians Diagnostic Test 2018-09-09 [UTP] EMG [code = [facility] Pending 00:00:00 [UTP] EMG] Physicians Diagnostic Test 2018-08-27 EMG/NCS-Arm [code [facility] Pending 00:00:00 = EMG/NCS-Arm] Physicians Diagnostic Test 2018-08-27 EMG/NCS-Arm [code Univers ity [facility] Pending 00:00:00 = EMG/NCS-Arm] Physicians Encounters Start End Encounter Admission Attending Care Care Encounter Source Date/Time Date/Time Type Type Clinicians Facility Department ID 2021-11-11 Outpatient [facility] [id number] [place] 22:52:25 [id number] [facility] 2021-05-16 Outpatient DOMINIQUE BENDER CAR [id number] TW 08:26:40 [facility] 2021-05-07 Outpatient [id number] Memoria 14:21:38 [id number] -[id number] Rosalio [id number] 2021-05-06 Outpatient [id number] Memoria 13:52:36 [id number]-[id number]- A l -[id number] Rosalio [id number] [id number] 2021-04-29 Outpatient [id number]-D Memoria 13:17:24 [id number]-[id number] [id number]-[id number]- A l -[id number]-SX2 [id number] Rosalio [id number] 2021-04-21 Outpatient [id number] Memoria 17:13:25 CEFC-4E6D [id number] [id number]- A l -ER24-[id number] [id number] Rosalio [id number] 2021-01-31 Outpatient DOMINIQUE JANG MHTW [id number] [facility] 08:42:11 [facility] 2020-10-29 Inpatient [facility] [id number] [facility] 12:12:00 [id number] [facility] 2020-06-11 Inpatient [facility] BUBBA [id number] [facility] 13:00:00 [id number] [facility] 2020-03-23 Inpatient [facility] BUBBA [id number] [facility] 20:51:00 [facility] 2021-11-16 2021-11-16 Outpatient R LOTT, [facility] [id number] Univers 14:45:00 14:45:00 ABILIO chaudhry [facility] 2021-11-07 2021-11-[address] [facility] [id number] [facility] 09:30:00 10:13:00 Visit [facility] [id number] it y inocencia [place] 4.2.7.2.686 Anuj as LYNETTE?BLEA [id number] [address] OFFICE [facility] 2021-05-22 2021-05-23 Outpatient E JENNIFER TW MED [id number] MHTW 19:19:00 17:25:00 BRANDY 2021-05-16 2021-05-19 Inpatient U SHAY TW MED [id number] MHTW 12:36:00 17:07:00 KRYSTIN 2021-05-13 2021-05-13 EXT [facility] OP Shay, EXT MSRDP [id number] [place] 00:00:00 00:00:00 [facility] [id number] [facility] [id number] 2021-05-06 2021-05-07 Outpatient MARY [facility] [id number] [place] 00:00:00 00:00:00 AHMED 313 Method i 2021-04-29 2021-04-29 Emergency BRANDY [facility] [id number] [place] 00:00:00 00:00:00 ALEX 158 Method i 2021-04-21 2021-04-23 Outpatient CARLA [facility] [id number] [place] 00:00:00 00:00:00 INDERJIT, Rossy4 Leticia Triplett 2021-03-05 2021-03-06 Outpatient AWOBOKUN, [facility] [id number] [place] 00:00:00 00:00:00 OLUYEMISI [address] 2021-01-28 2021-01-28 Outpatient [facility] [id number] [place] 00:00:00 00:00:[address] 2021-01-06 2021-01-06 Outpatient CHAD, RILEY [facility] [id number] [place] 00:00:00 00:00:[address] 2021-01-03 2021-01-03 Outpatient Elders, [facility] [id number] [facility] 08:30:00 08:30:00 Paolo [id number] [facility] 2020-10-28 2020-10-28 Outpatient [facility] [id number] [place] 00:00:00 00:00:[address] 2020-07-31 2020-07-31 Outpatient LAINE, MHTW MHTW [id number] MHTW 08:00:00 23:59:00 BRICE 2019-12-29 2019-12-29 Outpatient Germaine, [facility] ENDO [id number] [facility] 10:30:00 10:30:00 Ilyas [id number] [facility] 2018-08-26 2018-08-26 AppointDOTTY [facility] [id number] [facility] 10:00:00 10:00:00 t; Damion DELGADO M.D. [place] Wendie DELGADO M.D. [facility] 2018-08-09 2018-08-09 AppointDOTTY Monroy UTP [id number] Univers 12:30:00 12:30:00 t; BOONE ARIASy of [facility] ans 2018-08-09 2018-08-09 AppointDOTTY Lockhart [id number] Univers 11:00:00 11:00:00 t; [facility]A [facility] ans 2018-04-12 2018-04-12 AppointDOTTY Jiménez UTP [id number] Univers 11:00:00 11:00:00 t; BRAD FRANCO NP it y of SAMMI SALINAS [place] Physici ans 2017-10-12 2017-10-12 Appointmen JUANA, [facility] UTP [id number] Univers 10:30:00 10:30:00 t; JUANA, [facility] ity [facility] 2017-08-09 2017-08-09 Appointmen DERICK, [facility] UTP [id number] Univers 14:45:00 14:45:00 t; LEO SEPULVEDA, ity [place] BAILEY [place] Os[facility] 2017-08-09 2017-08-09 Appointmen MARLON, [facility] UTP [id number] Univers 14:00:00 14:00:00 t; MARLON, ECHOII ity [facility] 2017-06-22 2017-06-22 Appointmen VALVE, [facility] UTP [id number] Univers 09:45:00 09:45:00 t; VALVE, [facility] ity [facility] 2017-06-08 2017-06-08 Appointmen VALVE, [facility] UTP [id number] Univers 11:45:00 11:45:00 t; VALVE, [facility] ity of [facility] 2017-06-08 2017-06-08 Appointmen MARLON, [facility] UTP [id number] Univers 11:30:00 11:30:00 t; MARLON, ECHO1 ity of [address] Results Test Description Test Time Test Comments Results Result Comments Source CBC WITH DIFF 2021-11-07 19:34:50 Test Item Value Reference Range Interpretation Comme nts WBC (test code = 6690-2) See_Comment [A utomated message] The system which ge nerated this result transmit jared reference range: 4.20 - 1 0.70 10*3/?L. The reference r lexie was not used to interpr et this result as normal/abnor mal. RBC (test code = 789-8) See_Comment L [Au tomated message] The system which InHiro nerated this result transmit jared reference range: 4.26 - 5 .52 10*6/?L. The reference r lexie was not used to interpr et this result as normal/abnor mal. HGB (test code = 718-7) 10.8 g/dL 12.2-16.4 L HCT (test code = 4544-3) 33.7 % 38.4-49.3 L MCV (test code = 787-2) 102.1 fL 81.7-95.6 H MCH (test code = 785-6) 32.7 pg 26.1-32.7 MCHC (test code = 786-4) 32.0 g/dL 31.2-35.0 RDW-SD (test code = 95298-2) 46.4 fL 38.5-51.6 RDW-CV (test code = 788-0) 12.3 % 12.1-15.4 PLT (test code = 777-3) See_Comment [Au tomated message] The system which ge nerated this result transmit jared reference range: 150 - 32 8 10*3/?L. The reference range was not used to interpret th is result as normal/abnormal . MPV (test code = 35732-3) 9.8 fL 9.8-13.0 NRBC/100 WBC (test code = See_Comment [ Automated message] The [id number]) system which ge nerated this result transmit jared reference range: 0.0 - 10 .0 /100 WBCs. The reference r lexie was not used to interpr et this result as normal/abnor mal. NRBC x10^3 (test code = <0.01 See_Comment [Au tomated message] The [id number]) system which ge nerated this result transmit jarde reference range: 10*3/?L. The reference range was not u sed to interpret this result as normal/abnormal . GRAN MAT (NEUT) % (test code 78.5 % = 770-8) IMM GRAN % (test code = 0.40 % [id number]) LYMPH % (test code = 736-9) 14.2 % MONO % (test code = 5905-5) 5.2 % EOS % (test code = 713-8) 1.0 % BASO % (test code = 706-2) 0.7 % GRAN MAT x10^3(ANC) (test 7.74 10*3/uL 1.99-6.95 H code = 9822015242) IMM GRAN x10^3 (test code = 0.04 10*3/uL 0.00-0.06 3629146608) LYMPH x10^3 (test code = 1.40 10*3/uL 1.09-3.23 731-0) MONO x10^3 (test code = 0.51 10*3/uL 0.36-1.02 742-7) EOS x10^3 (test code = 0.10 10*3/uL 0.06-0.53 711-2) BASO x10^3 (test code = 0.07 10*3/uL 0.01-0.09 704-7) Lab Interpretation (test Abnormal code = 51530-4) [facility] RNA [Presence] in Respiratory specimen by MOHINDER with probe [id number] 04:39:02 Test Item Value Reference Range Interpretation Comments SARS-CoV-2 (COVID-19) RNA Not detected Not-Detected [Presence] in Respiratory specimen by MOHINDER with probe detection (test code = 20799-8) Whether patient is employed in a healthcare setting (test code = 45380-8) Whether the patient has symptoms related to condition of interest (test code = 80520-5) Patient was hospitalized because of this condition (test code = 18517-4) Whether the patient was admitted to intensive care unit (ICU) for condition of interest (test code = 26837-0) Whether patient resides in a congregate care setting (test code = 02628-6) SARS-CoV-2 (COVID-19) RNA [Presence] in Respiratory specimen by MOHINDER with probe [id number] 04:15:33 Test Item Value Reference Range Interpretation Comments SARS-CoV-2 (COVID-19) RNA Not detected Not-Detected [Presence] in Respiratory specimen by MOHINDER with probe detection (test code = 30280-3) Whether patient is employed in a healthcare setting (test code = 97276-7) Whether the patient has symptoms related to condition of interest (test code = 51841-0) Patient was hospitalized because of this condition (test code = 12152-1) Whether the patient was admitted to intensive care unit (ICU) for condition of interest (test code = 38575-9) Whether patient resides in a congregate care setting (test code = 70039-7) - CT UP EXTREM W/O CONT [id number] 09:13:00 [facility] : 1945 Sex: M Patient Name: TRINITY GARZA Unit No: [id number] EXAMS: CPT CODE: [id number] [place] EXTREM W/[place] [address] EXAM: - CT UP EXTREM W/O CONT [...] to 7 mm in size. There is nsyz-od-jltu appearance was subchondral sclerosis. The humeral head [...] MD; MARIBEL REYNOLDS MD Dictated Date/Time: 01/03/2021 (0913) Technologist: Daisy Agarwal CTDI: 28.33 DLP: 646.17 Trnscrpt: 01/03/2021 (0952) t.SDR.CB5 508 Imaging NAME: TRINITY GARZA [address] [place] [address] PHYS: Paolo Panchal MD[place]hal[place], [place] : 1945 AGE: 75 SEX: M [id number] LOC: [id number] PHONE #: [phone] EXAM DATE: 01/03/2021 STATUS: REG CLI FAX #: [phone] RAD #: D/C DT PAGE 1 Signed Report Patient Name: TRINITY GARZA Unit No: [id number] EXAMS: CPT CODE: [id number] [place] UP EXTREM W/[place] [address] <Continued> Orig Print D/T: S: 01/03/2021 (0775) 129 Imaging NAME: TRINITY GARZA [address] [place] [address] PHYS: Paolo Panchal [place]hal[place], [place] : 1945 AGE: 75 SEX: M [id number] LOC: [email or web address] PHONE #: [phone] EXAM DATE: 01/03/2021 STATUS: REG CLI FAX #: [phone] RAD #: D/C DT PAGE 2 Signed Report- XR C-SPINE 2-3 [id number] 18:02:00 [facility]ITY [facility] : 1945 Sex: M FAX: Cristo Camarena MD [phone] [place]: E St: REG FAX: Yosi WEISS, GENERIC FOR EDM FAX: Rodney Santoro [phone] Patient Name: TRINITY GARZA Unit No: [id number] EXAMS: CPT CODE: [id number] XR C-SPINE 2-3 VIEWS 21266 Location: [id number] spine x-ray exam: 5 views conducted on 10/29/20 with flexion and extension imaging acquired Comparison exam: 10/29/20 CT examination of the cervical spine. CLINICAL HISTORY: Assess for instability. Neck pain. Fusion identified again from C4 to T1. There is again discontinuity of the metallic plate connected to threaded screws identified at C6-C7 felt to be likely visitor services representative of a fracture through this metallic [...] Rodney Santoro NP Dictated Date/Time: 10/29/2020 (1801)Technologist: Milgaros Enciso Transcribed Date/Time: 10/29/2020 (1801) By: [email or web address] Orig Print D/T: S: 10/29/2020 (180) PETER Forrester NAME: TRINITY GARZA [address] [place] [address] Blvd PHYS: RUSTY. - Rodney Sant[place], [place] [address] : 1945 AGE: 75 SEX: M LOC: OSMAN PHONE #: [phone] EXAM DATE: 10/29/2020 STATUS: REG ER FAX #: [phone] RAD NO: DC Dt: PAGE 1 Signed Report- CT C-SPINE W/O CONT 2020-10-29 14:29:00 [facility]AR[facility] : 1945 Sex: M Patient Name: TRINITY GARZA Unit No: [id number] EXAMS: CPT CODE: [id number] CT C-SPINE W/O CONT 46308 EXAMINATION: - CT C-SPINE W/O CONT COMPARISON: [...] clear.. IMPRESSION: PETER Forrester NAME: TRINITY GARZA [address] [place] [address] PHYS: Rodney [place], [place] [address] : 1945 AGE: 75 SEX: M LOC: OSMAN PHONE #: [phone] EXAM DATE: 10/29/2020 STATUS: REG ER FAX #: [phone] RAD #: D/C DT PAGE 1 Signed Report (CONTINUED) Patient Name: TRINITY GARZA Unit No: [id number] EXAMS: CPT CODE: [id number] CT C-SPINE W/O CONT 96153 <Continued> Postsurgical and degenerative changes in the cervical spine as detailed above. Anterior fixation plate is discontinuous at the inferior C6 level. It appeared contiguous on the 2013 intraoperative x-rays. Whether this represents hardware failure or changes related to interval revision of the operative site is unclear. at 1429 Reported and signed by: Breana Floyd MD CC: EDDOC GENERIC FOR EDM; Rodney Santoro WOOD PREPARATION SUPERVISOR Dict ated Date/Time: 10/29/2020 (8610) Technologist: Acacia James CTDI: 13.73 DLP: 282.34 Trnscrpt: 10/29/2020 (0027) [email or web address] PETER Forrester NAME: TRINITY GARZA [address] [place] [address] PHYS: RAYMUNDO LeeadanRodney, [place] [address] : 1945 AGE: 75 SEX: M LOC: GiselDataEmail Group PHONE #: [phone] EXAM DATE: 10/29/2020 STATUS: REG ER FAX #: [phone] RAD #: D/CDT PAGE 2 Signed Report Patient Name: TRINITY GARZA Unit No: [id number] EXAMS: CPT CODE: [id number] CT C-SPINE W/O CONT 37138 <Continued> Orig Print D/T: S: 10/29/2020 (5712) PETER Forrester NAME: TRINITY GARZA [address] PHYS: RAYMUNDO [place]Rodney [place] [address] : 1945 AGE: 75 SEX: M ACCT NO: B [id number] LOC: B.ERS PHONE #: [phone] EXAM DATE: 10/29/2020 STATUS: REG ER FAX #: [phone] RAD #: D/C DT PAGE 3 Signed [id number] 15:24:00 Test Item Value Reference Range Interpretation [...] change s in troponin levelscharacter istic of SD. ADD-ONCOMPREHENSIVE METABOLIC [id number] 14:42:00 Test Item Value Reference Range Interpretation [...] 1 NORMAL code = LIPINDEX) MG Index/DL [id number] 14:42:00 Test Item Value Reference Range Interpretation Comments LIPASE (test code = LIP) 141 Unit/L 114-286 N COMPREHENSIVE METABOLIC [id number] 14:39:00 Test Item Value Reference Range Interpretation [...] <50 MG 1 NORMAL = LIPINDEX) Index/DL [id number] 14:39:00 Test Item Value Reference Range Interpretation Comments LIPASE (test code = LIP) Unit/L 114-286 - XR CHEST 1 [id number] 14:36:00 [facility] : 1945 Sex: M FAX: Yolanda Olea [phone] [place]: [address]: PRE Patient Name: TRINITY GARZA Unit No: [id number] EXAMS: CPT CODE: [id number] XR CHEST 1 V 61165 Dictation location: S17. CHEST, FRONTAL VIEW HISTORY: [...] By: [email or web address] Orig Print D/T: S: 06/11/2020 (5546) PETER Forrester NAME: TRINITY GARZA [address] PHYS: Yolanda [place], [place] [address] : 1945 AGE: 75 SEX: M LOC: [facility] PHONE #: [phone] EXAM DATE: 06/11/2020 STATUS: PRE ER FAX #: [phone] RAD NO: DC Dt: PAGE 1 Signed ReportURINALYSIS [id number] 14:31:00 Test Item Value Reference Range Interpretation [...] = RARE /LPF NONE MUCU) CBC W/AUTO [id number] 14:23:00 Test Item Value Reference Range Interpretation [...] K/mm3 0.00-0.05 N NRBC#) Coronavirus 2018 nCoV [id number] 22:18:00 Test Item Value Reference Range Interpretation Comments Coronavirus 2019 nCoV Bedside (test Negative Neg code = [id number]) Testing Criteria: [id number] 22:12:00 Test Item Value Reference Range Interpretation Comments ALCOHOL (test code = 184 MG/DL 0-10 H MEDICAL ALCOHOL ALC) RESULTS. SITE W PREPPED WITH BE TADINE. <10 MG/DL ARE CONSIDERED NEGA TIVE. >400 MG/DL MAY BE FATAL.RESULTS F OR MEDICAL USE ONL Y. NOT TO BE USED FOR FORENSIC PURPOSES. BASIC METABOLIC [id number] 22:05:00 Test Item Value Reference Range Interpretation [...] MG 1 NORMAL code = LIPINDEX) Index/DL [id number] 22:05:00 Test Item Value Reference Range Interpretation [...] change s in troponin levelscharacter istic of SD. BASIC METABOLIC [id number] 22:01:00 Test Item Value Reference Range Interpretation [...] MG 1 NORMAL code = LIPINDEX) Index/DL [id number] 22:01:00 Test Item Value Reference Range Interpretation Comments TROPONIN-I (test code = TROPI) NG/ML 0.000-0.045 CBC W/O [id number] 21:32:00 Test Item Value Reference Range Interpretation [...] 7.6-10.4 N MPV) - XR CHEST 1 [id number] 21:29:00 FAX: Yobany Roberson MD [phone] [place]: E St: REG Patient Name: TRINITY GARZA Unit No: [id number] EXAMS: CPT CODE: [id number] XR CHEST 1 V 32703 CHEST X-RAY 1 VIEW Dictation Location: N13 [...] Lovely Cuello Transcribed Date/Time: 03/23/2020 (2128) By: MimiMVGigi Orig Print D/T: S: 03/23/2020 (2131) [facility] [place] NAME: TRINITY GARZA [address] PHYS: SIMAL. - Yobany Roberson MD [place], [place] [address] :1945 AGE: 75 SEX: M LOC: [facility] PHONE #: [phone] EXAM DATE: 03/23/2020 STATUS: REG ER FAX #: [phone] RAD NO: DC Dt: PAGE 1 Signed ReportMRI Brain wo contrast [id number] 10:00:00EXAM: MRI BRAIN WITHOUT CONTRASTDATE: 09/26/2018 10:00 [...] change. Mild generalized cerebral volume loss.--Read by: Mallery, Jo MDDictated Date/time: 09/26/18 14:12Electronically Signed by: Jo Espinoza MD 09/26/1913:17FINAL REPORTUnJordan [facility] PhysiciansTobacco Use [id number] 10:00:00 Test Item Value Reference Range Interpretation Comments Completed (test code = Completed) DONE [facility]
--- NOTE | 2021-12-01 01:46 | EDPHYS ---
Physician Documentation [facility] Name: Иван Vickers Age: 76 yrs Sex: Male : 1945 Arrival Date: 11/30/2021 Time: 19:56 Bed 14 Private MD: ED Physician Luis Alberto Gloria HPI: 11/30 22:08 This 76 yrs old Male presents to ER via Wheelchair with complaints of General Weakness, kdr Nausea. 22:09 The patient has multiple complaints including generalized weakness, neck pain, left kdr shoulder pain, nausea, chest pain, upper abdominal pain, generalized lower extremity weakness, unable to stand, sense of impending doom. He made no mention of the previously reported tunnel vision or blurry vision during my exam and interview.. Onset: The symptoms/episode began/occurred Overall he has had worsening symptoms for the last 6 months. Last few days has been particularly worse. He denies any issues from a psychiatric perspective in terms of anxiety, paranoia or threats to his safety at home. He denies current smoking however he did quit about 10 years ago.. Severity of symptoms: At their worst the symptoms were moderate incapacitating in the emergency department the symptoms. The patient has not experienced similar symptoms in the past. The patient has been recently seen by a physician: The patient has been recently seen at the [facility] Emergency Department, just prior to arrival, today. Historical: - Allergies: 21:02 No Known Allergies; lp1 - Home Meds: 21:02 Eliquis 5 mg Oral tab 2 tabs 2 times per day [Active]; lisinopril 20 mg Oral tab 1 tab lp1 twice a day [Active]; - PMHx: 21:02 aortic valve problem; Arthritis; Atrial fibrillation; Dementia; Hypertensive disorder; lp1 Pacemaker; - Immunization history:: Adult Immunizations up to date. - Social history:: Smoking status: Patient/guardian denies using tobacco, the patient reports quitting approximately 10 years ago. ROS: 22:09 Constitutional: Negative for fever, chills, and weight loss, Eyes: Negative for injury, kdr pain, redness, and discharge, ENT: Negative for injury, pain, and discharge, Neck: Negative for new injury, pain, and swelling. He does have long-term pain from what he describes as arthritis 22:09 Cardiovascular: Positive for chest pain, As pressure and tightness, vague and difficult to describe. 22:09 Respiratory: Positive for dyspnea on exertion, shortness of breath, at rest. Negative for hemoptysis, orthopnea. 22:09 Abdomen/GI: Positive for abdominal pain, Vague upper abdominal pain. Exam: 22:09 Constitutional: This is a well developed, well nourished patient who is awake, alert, kdr and in no acute distress. Head/Face: Normocephalic, atraumatic. Eyes: Pupils equal round and reactive to light, extra-ocular motions intact. Lids and lashes normal. Conjunctiva and sclera are non-icteric and not injected. Cornea within normal limits. Periorbital areas with no swelling, redness, or edema. Neck: Trachea midline, no thyromegaly or masses palpated, and no cervical lymphadenopathy. Supple, full range of motion without nuchal rigidity, or vertebral point tenderness. No Meningismus. Chest/axilla: Normal chest wall appearance and motion. Nontender with no deformity. No lesions are appreciated. Cardiovascular: Regular rate and rhythm with a normal S1 and S2. No gallops, murmurs, or rubs. Normal PMI, no JVD. No pulse deficits. Respiratory: Lungs have equal breath sounds bilaterally, clear to auscultation and percussion. No rales, rhonchi or wheezes noted. No increased work of breathing, no retractions or nasal flaring. Abdomen/GI: Soft, non-tender, with normal bowel sounds. No distension or tympany. No guarding or rebound. No evidence of tenderness throughout. Back: No spinal tenderness. No costovertebral tenderness. Full range of motion. Skin: Warm, dry with normal turgor. Normal color with no rashes, no lesions, and no evidence of cellulitis. MS/ Extremity: Pulses equal, no cyanosis. Neurovascular intact. Full, normal range of motion. Neuro: Awake and alert, GCS 15, oriented to person, place, time, and situation. Cranial nerves II-XII grossly intact. Motor strength 5/5 in all extremities. Sensory grossly intact. Cerebellar exam normal. Normal gait. 22:09 Psych: Behavior/mood is pleasant, cooperative, anxious, Affect is flat, Oriented to person, place, time, Patient has no thoughts/intents to harm self or others. Judgement / Insight is normal. Delusions/hallucinations are not present. Vital Signs: 21:02 BP 145 / 93; Pulse 80; Resp 18; Temp 97.5(O); Pulse Ox 99% on R/A; Weight 61.23 kg (R); lp1 Height 5 ft. 7 in. (170.18 cm); Pain 5/10; 12/01 01:33 BP 144 / 89; Pulse 82; Resp 15; Pulse Ox 96% on R/A; sm5 02:26 BP 150 / 89; Pulse 80; Resp 14; Pulse Ox 97% on R/A; sm5 11/30 21:02 Body Mass Index 21.14 (61.23 kg, 170.18 cm) lp1 MDM: 11/30 22:09 Data reviewed: vital signs, nurses notes, lab test result(s), radiologic studies. kdr Counseling: I had a detailed discussion with the patient and/or guardian regarding: the historical points, exam findings, and any diagnostic results supporting the discharge/admit diagnosis, lab results, radiology results. 12/01 01:45 Patient medically screened. kdr 11/30 22:08 Order name: Troponin HS; Complete Time: 01:14 kdr 11/30 22:08 Order name: EKG; Complete Time: 22:09 kdr 11/30 22:08 Order name: Cardiac monitoring; Complete Time: 22:52 kdr 11/30 22:08 Order name: EKG - Nurse/Tech; Complete Time: 22:46 kdr 11/30 22:08 Order name: IV Saline Lock; Complete Time: 22:52 kdr 11/30 22:08 Order name: Labs collected and sent; Complete Time: 22:52 kdr 11/30 22:08 Order name: O2 Sat Monitoring; Complete Time: 22:52 kdr Administered Medications: No medications were administered Disposition Summary: 12/01/21 01:45 Discharge Ordered Location: Home kdr Problem: an ongoing problem kdr Symptoms: have improved kdr Condition: Stable kdr Diagnosis - Weakness kdr - Chest pain, unspecified kdr Followup: kdr - With: Private Physician - When: 2 - 3 days - Reason: If symptoms return, Further diagnostic work-up, Recheck today's complaints, Continuance of care, Re-evaluation by your physician Discharge Instructions: - Discharge Summary Sheet kdr - Nonspecific Chest Pain, Adult kdr - Nonspecific Chest Pain, Adult, [id number] kdr - Weakness, [id number] kdr Forms: - Medication Reconciliation Form kdr - Thank You Letter kdr Signatures: Dispatcher [employer] Luis Alberto Rothman MD MD kdr Lucy Christine RN RN lp1
--- NOTE | 2021-12-01 01:46 | ER ---
Nurse's Notes [facility] Name: Иван Vickers Age: 76 yrs Sex: Male : 1945 Arrival Date: 11/30/2021 Time: 19:56 Bed 14 Private MD: Diagnosis: Weakness;Chest pain, unspecified Presentation: 11/30 21:01 Chief complaint: Patient states: "I Can't stand up more than a minute or so, I'm lp1 nauseated, dizzy, having chest tightness, trouble breathing"; Reports symptoms began about 3-4 days ago. Coronavirus screen: At this time, the client does not indicate any symptoms associated with coronavirus-19. Ebola Screen: No symptoms or risks identified at this time. Risk Assessment: Do you want to hurt yourself or someone else? Patient reports no desire to harm self or others. Onset of symptoms was November 30, 2021. 21:01 Method Of Arrival: Wheelchair lp1 21:01 Acuity: RENALDO 3 lp1 21:02 Initial Sepsis Screen: Does the patient meet any 2 criteria? No. Patient's initial lp1 sepsis screen is negative. Does the patient have a suspected source of infection? No. Patient's initial sepsis screen is negative. Triage Assessment: 21:05 General: Appears in no apparent distress. Behavior is calm, cooperative. Pain: lp1 Complains of pain in chest, left shoulder. Neuro: Level of Consciousness is awake, alert, obeys commands, Oriented to person, place, situation. Respiratory: Respiratory effort is even, unlabored. Derm: Skin is intact, Skin is dry, Skin is normal. Historical: - Allergies: 21:02 No Known Allergies; lp1 - Home Meds: 21:02 Eliquis 5 mg Oral tab 2 tabs 2 times per day [Active]; lisinopril 20 mg Oral tab 1 tab lp1 twice a day [Active]; - PMHx: 21:02 aortic valve problem; Arthritis; Atrial fibrillation; Dementia; Hypertensive disorder; lp1 Pacemaker; - Immunization history:: Adult Immunizations up to date. - Social history:: Smoking status: Patient/guardian denies using tobacco, the patient reports quitting approximately 10 years ago. Screenin:56 Abuse screen: Denies threats or abuse. Denies injuries from another. Nutritional sm5 screening: No deficits noted. Tuberculosis screening: No symptoms or risk factors identified. Fall Risk None identified. Assessment: 22:56 General: Appears in no apparent distress. Behavior is cooperative. Pain: Denies pain. sm5 Neuro: No deficits noted. Level of Consciousness is awake, alert, obeys commands, Oriented to person, place, time, situation. Cardiovascular: No deficits noted. Capillary refill < 3 seconds Patient's skin is warm and dry. GI: Abdomen is flat, Reports nausea. 12/01 00:15 Reassessment: No changes from previously documented assessment. Patient and/or family sm5 updated on plan of care and expected duration. Pain level reassessed. 01:31 Reassessment: pt resting in bed. sm5 02:18 Reassessment: RN in room to discharge pt. pt stated "you want me to get up, get sm5 dressed, and walk out to the waiting room? I can hardly stand, let alone walk" wheelchair offered to pt, pt agreed. pt able to stand and dress himself independently with no difficulty. Vital Signs: 11/30 21:02 BP 145 / 93; Pulse 80; Resp 18; Temp 97.5(O); Pulse Ox 99% on R/A; Weight 61.23 kg (R); lp1 Height 5 ft. 7 in. (170.18 cm); Pain 5/10; 12/01 01:33 BP 144 / 89; Pulse 82; Resp 15; Pulse Ox 96% on R/A; sm5 02:26 BP 150 / 89; Pulse 80; Resp 14; Pulse Ox 97% on R/A; sm5 11/30 21:02 Body Mass Index 21.14 (61.23 kg, 170.18 cm) lp1 ED Course: 11/30 19:56 Patient arrived in ED. kz 20:19 Luis Alberto Gloria MD is Attending Physician. kdr 21:02 Triage completed. lp1 21:02 Arm band placed on left wrist. lp1 22:46 Rosalia Morales, TOMASZ is Primary Nurse. sm5 22:50 Inserted saline lock: 20 gauge in right antecubital area, using aseptic technique. sm5 Blood collected. 22:52 Troponin HS Sent. sm5 12/01 02:26 Patient has correct armband on for positive identification. Placed in gown. Bed in low sm5 position. Call light in reach. Side rails up X2. 02:26 No provider procedures requiring assistance completed. IV discontinued, intact, sm5 bleeding controlled, No redness/swelling at site. Pressure dressing applied. Administered Medications: No medications were administered Outcome: 01:45 Discharge ordered by . kdr 02:27 Discharged to home via wheelchair. sm5 02:27 Condition: stable 02:27 Discharge instructions given to patient, Instructed on discharge instructions, follow up and referral plans. Demonstrated understanding of instructions, follow-up care. 02:27 Patient left the ED. 5 Signatures: Luis Alberto Gloria MD MD kdr Pena, Laura RN RN lp1 Rosalia Morales RN RN sm5 Angela Rousseau
[2021-12-01 07:34] VITALS: TEMP 97.5
[2021-12-01 07:36] VITALS: BP 150/89; O2SAT 97
--- NOTE | 2021-12-01 07:53 | EKG ---
Test Date: 2021-11-30 Test Time: 22:42:11 Zipper Trimmer Hand: EFREN MEASUREMENT RESULTS: Intervals: Rate: 80 NC: 132 QRSD: 160 QT: 460 QTc: 530 [place]: P: 73 NC: 132 QRS: -83 T: 79 INTERPRETIVE STATEMENTS: paced rhythm Left axis deviation Left ventricular hypertrophy with QRS widening Cannot rule out Anterior infarct, age undetermined Abnormal ECG Compared to ECG 11/30/2021 16:00:13 [place] Electronically Signed On 12-01-21 07:52:23 CDT by Pj Mckee
== END 2021-12-01 02:27 | disposition home or self-care (01) ==
LOC: ER 19:53
DX: R53.1 Weakness (principal); R07.9 Chest pain, unspecified; R10.9 Unspecified abdominal pain; I10 Essential (primary) hypertension; I48.91 Unspecified atrial fibrillation; F03.90 Unspecified dementia, unspecified severity, without behavioral disturbance, psychotic disturbance, mood disturbance, and anxiety; Z79.01 Long term (current) use of anticoagulants; Z95.0 Presence of cardiac pacemaker
CPT/HCPCS: 36415; 84484; 93005; 99283

== ENCOUNTER 2022-02-01 13:21 | Emergency (ER) | payer OTHER ==
[2022-02-01] MEDS ORDERED: ETOMIDATE 20 MG/10 ML VIAL IV ONE (13:22)
[2022-02-01] MEDS ORDERED: ROCURONIUM 50 MG/5 ML VIAL IV ONE (13:22)
--- OUTSIDE RECORDS SUMMARY | 2022-02-01 13:25 | XMS REPORT | Continuity of Care Document ---
:1945 Author Organization [facility] t Address [address] [place] [address] Care Team Providers Name Role Phone Jonathan Quevedo Primary Care Physician Roque BENDER Attending Clinician Unavailable PARVEZ JANG Attending Clinician Unavailable NICK Attending Clinician Unavailable Boby LOTT Attending Clinician Unavailable Solitario Haas MD Attending Clinician EDWAR Attending Clinician Unavailable Edwar LEE Attending Clinician Boby Lomas LMSW Attending Clinician Julio MUELLER Attending Clinician CARLOS RODRIGUEZ Attending [...] Attending Clinician Unavailable DERICK Attending Clinician Unavailable VALVE Attending Clinician Unavailable MARLON Attending Clinician Unavailable Glen Admitting Clinician Unavailable CARLOS RODRIGUEZ Admitting Clinician Unavailable MARGY FOOTE Admitting Clinician Unavailable Shay LEE Admitting Clinician YANNI Admitting Clinician Unavailable MD Ramo LIAO Admitting Clinician Unavailable HONORIO Admitting Clinician Unavailable Physician, Primary or Family Admitting Clinician Unavailabl e KNOW Admitting Clinician Unavailable Payers Payer Name Policy Type Policy Number Effective Date Expiration Date S ourtiny [employer] Medicare C [id number] 2020 00:00:00 [employer] Medicare D [id number] 2017 00:00:00 [employer] Medicare C [id number] 2018 2019 00:00:00 00:00:00 [employer] GOLD PLS [id number] 2020 HMO 00:00:00 [facility] STAR [id number] 2021 PLUS 00:00:00 Problems Condition Condition Condition Status Onset Resolution Last Treating Co mments Source Name Details Category Date Date Treatment Clinician Date S/P TAVR S/P TAVR Disease Active Unive rs (transcath (transcath -26 it y of eter eter 00:00: [place] aortic aortic 00 Medical valve valve Branch replacemen replacemen t) t) Cardiomyop Cardiomyop Disease Active U nivers athy, athy, 5-26 ity of unspecifie [place] type d type 00 Medical Branch Aortic Aortic Disease Active Univers valve valve 5-20 ity of disease disease 00:00: 00 Medical Branch Pacemaker Pacemaker Disease Active Uni vers 5-20 ity of 00:00: 00 Medical Branch Arthritis Arthritis Disease Active Uni vers of of 5-20 ity of shoulder shoulder 00:00: [place] region, region, 00 Medical left left Branch Chronic Chronic Disease Active Univers dementia dementia 5-20 ity of without without 00:00: [place] behavioral behavioral 00 Me dical disturbanc disturbanc Br anch e e Enlarged Enlarged Disease Active Unive rs prostate prostate 5-20 ity of 00:00: 00 Medical Branch Acquired Acquired Disease Active Unive rs hypothyroi hypothyroi 5-20 it y of dism dism 00:00: Medical Branch Chronic Chronic Disease Active Univers neck pain neck pain 5-20 ity of 00:: Medical Branch Cigarette Cigarette Disease Active Uni vers nicotine nicotine 5-20 ity of dependence dependence [place] in 00 Medical remission remission Bran ch Seborrheic Seborrheic Disease Active U nivers dermatitis dermatitis 5-20 it y of 00:: Medical Branch Routine Routine Disease Active Univers eye exam eye exam 5-20 ity of 00:: Medical Branch Chronic Chronic Disease Active Univers fatigue fatigue 5-20 ity of :: Medical Branch Hypertensi Hypertensi Disease Active U nivers on, on, - ity of unspecifie unspecifie [place] type d type 00 Medical Branch Atrial Atrial Disease Active Univers fibrillati fibrillati 9-03 it y of on on 00:: Medical Branch TIA TIA Disease Active Univers (transient (transient 9-02 it y of ischemic ischemic 00:00: [place] attack) attack) 00 Medical Branch Chest pain Chest pain Disease Active U nivers 7-17 ity of 00:: Medical Branch Chronic Problem Active 2020-04-29 [place] ike obstructiv 02:45:03 l e Chronic Rosalio pulmonary obstructiv disease, e unspecifie pulmonary d COPD disease, type unspecifie d COPD type Active Problem 04/29/2020 Anna Sam History of History of Problem Resolve [facility] d Physici disease disease ans Shortness Shortness Problem Active [facility] of breath of breath Phys ici ans COPD COPD Problem Active [facility] (chronic (chronic Physic i obstructiv obstructiv an s e e pulmonary pulmonary disease) disease) Essential Essential Problem Active [facility] (primary) (primary) Phys ici hypertensi hypertensi an s on on Aortic Aortic Problem Active [facility] valve valve Physici stenosis stenosis ans 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 Allergies, Adverse Reactions, Alerts Allergy Allergy Status Severity Reaction(s) Onset Inactive Treating Comm ents Source Name Type Date Date Clinician No Known DA Active U 2018-0 [facility]ie 9-20 [facility] 00:[facility]: [facility] 00 [facility] No Known DA Active U 2017- [facility] Allergie 9-20 [facility] s 00:00: [facility] No Known DA Active U 2013-0 [facility] Allergie 3- Bryan s 00:00: [facility] NO KNOWN Drug Active Univers ALLERGIE Class ity of S [facility] Family History Family Member Diagnosis Comments Start Date Stop Date Source Father Family history of [facility] cerebrovascular accident (CVA) Social History Social Habit Start Date Stop Date Quantity Comments Source Exposure to 2022-01-02 2022-01-12 Not sure [facility] SARS-CoV-2 (event) 00:00:00 14:27:00 [facility] Alcohol intake 2022-01-06 2022-01-06 Current drinker Unive rsity of 00:00:00 00:00:00 of alcohol [facility] (finding) Branch Cigarettes smoked 2021-07-13 2021-07-13 Univers ity of current (pack per 00:00:00 00:00:00 ) - Reported Branch Cigarette 2021-07-13 2021-07-13 University of pack-years 00:00:00 00:00:00 [facility] Tobacco use and 2021-07-13 2021-07-13 Never used Universit y of exposure 00:00:00 00:00:00 [facility] History of tobacco 2021-05-09 Smoker Univer sity of use 00:00:00 [facility] Sex [birth year] Universit y of 00:00:00 00:00:00 [facility] Smoking Status Start Date Stop Date Source Tobacco smoking [facility] consumption unknown Former smoker 2021-07-13 00:00:00 2021-07-13 University o f [place] 00:00:00 [facility] Medications Ordered Filled Start Stop Current Ordering Indication Dosage Frequency Signature Comments Components Source Medication Medication Date Date Medication? Clinician (SIG) Name Name RIVASTIGMIN Yes 1{patch APPLY 1 Univers E 4.6 mg/24 01-26 } PATCH TO ity of hour patch 00:00: SKIN DAILY [place] [facility] lisinopriL Yes [id number] 5mg Take 1 U nivers 5 mg tablet 5-20 tablet by ity of 00:00: mouth [place] 00 daily. Medical Branch apixaban 5 2-0 Yes 1230 5mg Take 1 Unive rs mg tablet 5-20 tablet by ity o f 00:00: mouth 2 [place] 00 (two) Medical times Branch daily. Indication s: artificial heart valve present Diclofenac 2-0 Yes [id number] Apply to Univers Sodium 5-20 07 area(s) 4 ity of (VOLTAREN) 00:00: (four) [place] 1 % gel 00 times Medical daily. Branch Apply 4 g qid lisinopriL 2-0 Yes [id number] 5mg Take 1 U nivers 5 mg tablet 5-20 tablet by ity of 00:00: mouth [place] 00 daily. Medical Branch apixaban 5 2021-0 Yes 1230 5mg Take 1 Unive rs mg tablet 5-20 tablet by ity o f 00:00: mouth 2 [place] 00 (two) Medical times Branch daily. Indication s: artificial heart valve present Diclofenac 2-0 Yes [id number] Apply to Univers Sodium 5-20 07 area(s) 4 ity of (VOLTAREN) 00:00: (four) [place] 1 % gel 00 times Medical daily. Branch Apply 4 g qid lisinopriL 2-0 Yes [id number] 5mg Take 1 U nivers 5 mg tablet 5-20 tablet by ity of 00:00: mouth [place] 00 daily. Medical Branch apixaban 5 2021-0 Yes 1230 5mg Take 1 Unive rs mg tablet 5-20 tablet by ity o f 00:00: mouth 2 [place] 00 (two) Medical times Branch daily. Indication s: artificial heart valve present Diclofenac 2-0 Yes [id number] Apply to Univers Sodium 5-20 07 area(s) 4 ity of (VOLTAREN) 00:00: (four) [place] 1 % gel 00 times Medical daily. Branch Apply 4 g qid lisinopriL 2022-0 Yes [id number] 5mg Take 1 U nivers 5 mg tablet 5-20 tablet by ity of 00:00: mouth [place] 00 daily. Medical Branch apixaban 5 2-0 Yes 1230 5mg Take 1 Unive rs mg tablet 5-20 tablet by ity o f 00:00: mouth 2 [place] 00 (two) Medical times Branch daily. Indication s: artificial heart valve present Diclofenac 2022-0 Yes [id number] Apply to Univers Sodium 5-20 07 area(s) 4 ity of (VOLTAREN) 00:00: (four) [place] 1 % gel 00 times Medical daily. Branch Apply 4 g qid lisinopriL 2022-0 Yes [id number] 5mg Take 1 U nivers 5 mg tablet 5-20 tablet by ity of 00:00: mouth [place] 00 daily. Medical Branch apixaban 5 2-0 Yes 1230 5mg Take 1 Unive rs mg tablet 5-20 tablet by ity o f 00:00: mouth 2 [place] 00 (two) Medical times Branch daily. Indication s: artificial heart valve present Diclofenac 2022-0 Yes [id number] Apply to Univers Sodium 5-20 07 area(s) 4 ity of (VOLTAREN) 00:00: (four) [place] 1 % gel 00 times Medical daily. Branch Apply 4 g qid lisinopriL 2022-0 Yes [id number] 5mg Take 1 U nivers 5 mg tablet 5-20 tablet by ity of 00:00: mouth [place] 00 daily. Medical Branch apixaban 5 2-0 Yes 1230 5mg Take 1 Unive rs mg tablet 5-20 tablet by ity o f 00:00: mouth 2 [place] 00 (two) Medical times Branch daily. Indication s: artificial heart valve present Diclofenac 2022-0 Yes [id number] Apply to Univers Sodium 5-20 07 area(s) 4 ity of (VOLTAREN) 00:00: (four) [place] 1 % gel 00 times Medical daily. Branch Apply 4 g qid lisinopriL 2-0 Yes [id number] 5mg Take 1 U nivers 5 mg tablet 5-20 tablet by ity of 00:00: mouth [place] 00 daily. Medical Branch apixaban 5 2022-0 Yes 1230 5mg Take 1 Unive rs mg tablet 5-20 tablet by ity o f 00:00: mouth 2 [place] 00 (two) Medical times Branch daily. Indication s: artificial heart valve present Diclofenac 2022-0 Yes [id number] Apply to Univers Sodium 5-20 07 area(s) 4 ity of (VOLTAREN) 00:00: (four) [place] 1 % gel 00 times Medical daily. Branch Apply 4 g qid apixaban 5 2021- No 1230 5mg Take 1 Univ ers mg tablet 01-03 05-20 tablet by ity of 00:00: 00:00 mouth 2 00 :00 (two) Medical times Branch daily. Indication s: artificial heart valve present RIVASTIGMIN Yes 1{patch APPLY 1 Univers E 4.6 mg/24 5-09 } PATCH TO ity of hour patch 00:00: SKIN DAILY T Medical Branch RIVASTIGMIN Yes 1{patch APPLY 1 Univers E 4.6 mg/24 5-09 } PATCH TO ity of hour patch 00:00: SKIN DAILY Medical Branch RIVASTIGMIN Yes 1{patch APPLY 1 Univers E 4.6 mg/24 5-09 } PATCH TO ity of hour patch 00:00: SKIN DAILY Medical Branch RIVASTIGMIN Yes 1{patch APPLY 1 Univers E 4.6 mg/24 5-09 } PATCH TO ity of hour patch 00:00: SKIN DAILY Medical Branch RIVASTIGMIN Yes 1{patch APPLY 1 Univers E 4.6 mg/24 5-09 } PATCH TO ity of hour patch 00:00: SKIN DAILY Medical Branch RIVASTIGMIN Yes 1{patch APPLY 1 Univers E 4.6 mg/24 5-09 } PATCH TO ity of hour patch 00:00: SKIN DAILY Medical Branch RIVASTIGMIN 2021- No 1{patch APPLY 1 Univers E 4.6 mg/24 5-09 06-09 } PATCH TO ity of hour patch 00:00: 00:00 SKIN DAILY 00 :00 Medical Branch lisinopriL 2021- No [id number] 5mg Take 1 Univers 5 mg tablet 12-13 05-20 tablet by it y of 00:00: 00:00 mouth [place] 00 :00 daily. Medical Branch ALBUTEROL Yes Inhale. Unive rs SULFATE HFA 4-05 ity of INHALE 11:47: [place] 11 Medical Branch Mometasone- Yes 2{puff} Inhale 2 Univers Formoterol 4-05 Puffs. ity of 200-5 11:47: [place] mcg/actuati 11 Medical on inhaler Branch [facility], Yes 2g Take 2 g Univer s omega-3-aci 4-05 by mouth. ity of d ethyl 11:47: [place] esters, 1 11 Medical gram Branch capsule tiotropium Yes Inhale. Univ ers 18 mcg 4-05 ity of inhalation 11:47: [address] ALBUTEROL Yes Inhale. Unive rs SULFATE HFA 4-05 ity of INHALE 11:47: [address] Yes 2{puff} Inhale 2 Univers Formoterol 4-05 Puffs. ity of 200-5 11:47: [place] mcg/actuati Medical on inhaler Branch [facility], Yes 2g Take 2 g Univer s omega-3-aci 4-05 by mouth. ity of d ethyl 11:47: [place] esters, 1 11 Medical gram [place] capsule tiotropium Yes Inhale. Univ ers 18 mcg 4-05 ity of inhalation 11:47: [address] ALBUTEROL Yes Inhale. Unive rs SULFATE HFA 4-05 ity of INHALE 11:47: [address]- Yes 2{puff} Inhale 2 Univers Formoterol 4-05 Puffs. ity of 200-5 11:47: [place] mcg/actuati [address] [place] [address] on inhaler Branch [facility], Yes 2g Take 2 g Univer s omega-3-aci 4-05 by mouth. ity of d ethyl 11:47: [place] esters, 1 11 Medical gram Branch capsule tiotropium Yes Inhale. Univ ers 18 mcg 4-05 ity of inhalation 11:47: [address] ALBUTEROL Yes Inhale. Unive rs SULFATE HFA 4-05 ity of INHALE 11:47: [address]- Yes 2{puff} Inhale 2 Univers Formoterol 4-05 Puffs. ity of 200-5 11:47: [place] mcg/actuati Medical on inhaler Branch [facility], Yes 2g Take 2 g Univer s omega-3-aci 4-05 by mouth. ity of d ethyl 11:47: [place] esters, 1 11 Medical gram Branch capsule tiotropium Yes Inhale. Univ ers 18 mcg 4-05 ity of inhalation 11:47: [address] ALBUTEROL Yes Inhale. Unive rs SULFATE HFA 4-05 ity of INHALE 11:47: [address] Mometasone- Yes 2{puff} Inhale 2 Univers Formoterol 4-05 Puffs. ity of 200-5 11:47: [place] mcg/actuati Medical on inhaler Branch [facility], Yes 2g Take 2 g Univer s omega-3-aci 4-05 by mouth. ity of d ethyl 11:47: [place] esters, 1 11 Medical gram [place] capsule tiotropium Yes Inhale. Univ ers 18 mcg 4-05 ity of inhalation 11:47: [address] ALBUTEROL Yes Inhale. Unive rs SULFATE HFA 4-05 ity of INHALE 11:47: [address] Yes 2{puff} Inhale 2 Univers Formoterol 4-05 Puffs. ity of 200-5 11:47: [facility]/actuati Medical on inhaler Branch [facility], Yes 2g Take 2 g Univer s omega-3-aci 4-05 by mouth. ity of d ethyl 11:47: [place] esters, 1 11 Medical gram [place] capsule tiotropium Yes Inhale. Univ ers 18 mcg 4-05 ity of inhalation 11:47: [address] ALBUTEROL Yes Inhale. Unive rs SULFATE HFA 4-05 ity of INHALE 11:47: [address]- Yes 2{puff} Inhale 2 Univers Formoterol 4-05 Puffs. ity of 200-5 11:47: [place] mcg/actuati Medical on inhaler Branch [facility], Yes 2g Take 2 g Univer s omega-3-aci 4-05 by mouth. ity of d ethyl 11:47: [place] esters, 1 11 Medical gram Branch capsule tiotropium Yes Inhale. Univ ers 18 mcg 4-05 ity of inhalation 11:47: [place] [id number] Medical Branch ALBUTEROL Yes Inhale. [facility] rs SULFATE HFA 3-21 ity of INHALE 09:35: [place] 05 Medical Branch Mometasone- Yes 2{puff} Inhale 2 Univers Formoterol 3-21 Puffs. ity of 200-5 09:35: [place] mcg/actuati 05 Medical on inhaler Branch LOVAZA, Yes 2g Take 2 g [facility] s omega-3-aci 3-21 by mouth. ity of d ethyl 09:35: [place] esters, 1 05 Medical gram Branch capsule tiotropium Yes Inhale. [facility] ers 18 mcg 3-21 ity of inhalation 09:35: [place] 05 Medical Branch acetaminoph 0 Yes [id number] 650mg Take 1 Univers en (TYLENOL 3-21 tablet by ity of ARTHRITIS 00:00: mouth [place] PAIN) 650 00 every 8 Medical mg CR (eight) Branch tablet hours as needed for Pain. dicyclomine 2021-0 Yes [id number] 20mg Take 1 Univers 20 mg 3-21 tablet by ity of tablet 00:00: mouth 4 [place] 00 (four) Medical times Branch daily as needed for Abdominal pain. ondansetron 2021-0 Yes [id number] 4mg Take 1 Univers (ZOFRAN) 4 3-21 tablet by ity of mg tablet 00:00: mouth [place] 00 every 8 Medical (eight) Branch hours as needed for Nausea and Vomiting (N/V). acetaminoph 2021-0 Yes [id number] 650mg Take 1 Univers en (TYLENOL 3-21 tablet by ity of ARTHRITIS 00:00: mouth [place] PAIN) 650 00 every 8 Medical mg CR (eight) Branch tablet hours as needed for Pain. dicyclomine 2021-0 Yes [id number] 20mg Take 1 Univers 20 mg 3-21 tablet by ity of tablet 00:00: mouth 4 [place] 00 (four) Medical times Branch daily as needed for Abdominal pain. ondansetron 2021-0 Yes [id number] 4mg Take 1 Univers (ZOFRAN) 4 3-21 tablet by ity of mg tablet 00:00: mouth [place] 00 every 8 Medical (eight) Branch hours as needed for Nausea and Vomiting (N/V). acetaminoph 2022-0 Yes [id number] 650mg Take 1 Univers en (TYLENOL 3-21 tablet by ity of ARTHRITIS 00:00: mouth [place] PAIN) 650 00 every 8 Medical mg CR (eight) Branch tablet hours as needed for Pain. dicyclomine 2022-0 Yes [id number] 20mg Take 1 Univers 20 mg 3-21 tablet by ity of tablet 00:00: mouth 4 [place] 00 (four) Medical times Branch daily as needed for Abdominal pain. ondansetron 2022-0 Yes [id number] 4mg Take 1 Univers (ZOFRAN) 4 3-21 tablet by ity of mg tablet 00:00: mouth [place] 00 every 8 Medical (eight) Branch hours as needed for Nausea and Vomiting (N/V). acetaminoph 2-0 Yes [id number] 650mg Take 1 Univers en (TYLENOL 3-21 tablet by ity of ARTHRITIS 00:00: mouth [place] PAIN) 650 00 every 8 Medical mg CR (eight) Branch tablet hours as needed for Pain. dicyclomine 2022-0 Yes [id number] 20mg Take 1 Univers 20 mg 3-21 tablet by ity of tablet 00:00: mouth (four) Medical times Branch daily as needed for Abdominal pain. ondansetron 2-0 Yes [id number] 4mg Take 1 Univers (ZOFRAN) 4 3-21 tablet by ity of mg tablet 00:00: mouth [place] 00 every 8 Medical (eight) Branch hours as needed for Nausea and Vomiting (N/V). acetaminoph 2022-0 Yes [id number] 650mg Take 1 Univers en (TYLENOL 3-21 tablet by ity of ARTHRITIS 00:00: mouth [place] PAIN) 650 00 every 8 Medical mg CR (eight) Branch tablet hours as needed for Pain. dicyclomine 2022-0 Yes [id number] 20mg Take 1 Univers 20 mg 3-21 tablet by ity of tablet 00:00: mouth 4 00 (four) Medical times Branch daily as needed for Abdominal pain. ondansetron 2022-0 Yes [id number] 4mg Take 1 Univers (ZOFRAN) 4 3-21 tablet by ity of mg tablet 00:00: mouth [place] 00 every 8 Medical (eight) Branch hours as needed for Nausea and Vomiting (N/V). acetaminoph 2022-0 Yes [id number] 650mg Take 1 Univers en (TYLENOL 3-21 tablet by ity of ARTHRITIS 00:00: mouth [place] PAIN) 650 00 every 8 Medical mg CR (eight) Branch tablet hours as needed for Pain. dicyclomine 2022-0 Yes [id number] 20mg Take 1 Univers 20 mg 3-21 tablet by ity of tablet 00:00: mouth 4 00 (four) Medical times Branch daily as needed for Abdominal pain. ondansetron 2022-0 Yes [id number] 4mg Take 1 Univers (ZOFRAN) 4 3-21 tablet by ity of mg tablet 00:00: mouth [place] 00 every 8 Medical (eight) Branch hours as needed for Nausea and Vomiting (N/V). acetaminoph 2022-0 Yes [id number] 650mg Take 1 Univers en (TYLENOL 3-21 tablet by ity of ARTHRITIS 00:00: mouth [place] PAIN) 650 00 every 8 Medical mg CR (eight) Branch tablet hours as needed for Pain. dicyclomine 2022-0 Yes [id number] 20mg Take 1 Univers 20 mg 3-21 tablet by ity of tablet 00:00: mouth (four) Medical times Branch daily as needed for Abdominal pain. ondansetron 2022-0 Yes [id number] 4mg Take 1 Univers (ZOFRAN) 4 3-21 tablet by ity of mg tablet 00:00: mouth [place] 00 every 8 Medical (eight) Branch hours as needed for Nausea and Vomiting (N/V). acetaminoph 2022-0 Yes [id number] 650mg Take 1 Univers en (TYLENOL 3-21 tablet by ity of ARTHRITIS 00:00: mouth [place] PAIN) 650 00 every 8 Medical mg CR (eight) Branch tablet hours as needed for Pain. dicyclomine 2022-0 Yes [id number] 20mg Take 1 Univers 20 mg 3-21 tablet by ity of tablet 00:00: mouth 4 (four) Medical times Branch daily as needed for Abdominal pain. ondansetron 2022-0 Yes [id number] 4mg Take 1 Univers (ZOFRAN) 4 3-21 tablet by ity of mg tablet 00:00: mouth [place] 00 every 8 Medical (eight) Branch hours as needed for Nausea and Vomiting (N/V). rivastigmin Yes 1{patch Apply 1 Univers e 4.6 mg/24 3-03 } Patch to ity of hour patch 00:00: skin [place] 00 daily. Medical Branch lisinopriL Yes [id number] 5mg Take 1 U nivers 5 mg tablet 2-24 tablet by ity of 00:00: mouth [place] 00 daily. Medical Branch apixaban 5 Yes 1230 5mg Take 1 Unive rs mg tablet 1-20 tablet by ity o f 00:00: mouth 2 [place] 00 (two) Medical times Branch daily. Indication s: artificial heart valve present atorvastati 2021- No [id number] 40mg Take 1 Univers n 40 mg 08-26 tablet by ity of tablet 00:00: 04:59 mouth [place] 00 :00 every Medical evening Branch for 90 days. carvediloL 2021- No [id number] 6.25mg Take 1 Univers 6.25 mg 08-26 tablet by ity of tablet 00:00: 04:59 mouth 2 [place] 00 :00 (two) Medical times Branch daily with meals for 90 days. levothyroxi 2021- No [id number] 50ug Take 1 Univers ne 50 mcg 08-26 tablet by ity of tablet 00:00: 04:59 mouth [place] 00 :00 every Medical morning Branch for 90 days. tamsulosin 2021- No [id number] .4mg Take 1 Univers 0.4 mg 24 08-2608 capsule by ity of hr capsule 00:00: 04:59 mouth [place] 00 :00 daily for Medical 90 days. Branch traMADoL Yes Univers 200 mg 24 9-16 ity of hr tablet 00:00: 00 Medical Branch traMADoL Yes Univers 200 mg 24 9-16 ity of hr tablet 00:00: 00 Medical Branch traMADoL Yes Univers 200 mg 24 9-16 ity of hr tablet 00:00: Medical Branch traMADoL Yes Univers 200 mg 24 9-16 ity of hr tablet 00:00: [place] 00 Medical Branch traMADoL Yes Univers 200 mg 24 9-16 ity of hr tablet 00:00: [facility] traMADoL Yes Univers 200 mg 24 9-16 ity of hr tablet 00:00: [facility] traMADoL Yes Univers 200 mg 24 9-16 ity of hr tablet 00:00: [facility] traMADoL Yes Univers 200 mg 24 9-16 ity of hr tablet 00:00: [place] [facility] Clopidogrel Clopidogrel 2017-08 Yes ESTEFANY 1 QD TAKE 1 [facility] Bisulfate Bisulfate 2-28 JUANA M.D. TABLET Physici 75 MG Oral 75 MG Oral 00:00: DAILY. ans Tablet Tablet 00 Aspirin EC Aspirin EC 2017-08 Yes ESTEFANY TAKE ONE UT Low Low 2-26 JUANA M.D. TABLET BY Phys ici Strength 81 Strength 81 00:00: MOUTH ans MG Oral MG Oral 00 DAILY Tablet Tablet Delayed Delayed Release Release Lisinopril Lisinopril Yes R.N. 1 QD TAKE 1 U T 20 MG Oral 20 MG Oral TABLET P hysici Tablet Tablet DAILY ans Tylenol Tylenol Yes R.N. Q0.3333D TAKE 1 UT with with TABLET 3 Physici Codeine #3 Codeine #3 TIMES an s 300-30 MG 300-30 MG DAILY Oral Tablet Oral Tablet NEEDED FOR PAIN. Immunizations Ordered Filled Immunization Date Status Comments [facility] e Immunization Name Name SARS-COV-2 COVID-19 2021-08-26 Completed Unive rsity of PFIZER VACCINE 00:00:00 [facility] SARS-COV-2 COVID-19 2021-08-26 Completed Unive rsity of PFIZER VACCINE 00:00:00 [facility] SARS-COV-2 COVID-19 2021-08-26 Completed Unive rsity of PFIZER VACCINE 00:00:00 [facility] SARS-COV-2 COVID-19 2021-08-26 Completed Unive rsity of PFIZER VACCINE 00:00:00 [facility] SARS-COV-2 COVID-19 2021-08-26 Completed Unive rsity of PFIZER VACCINE 00:00:00 [facility] SARS-COV-2 COVID-19 2021-08-26 Completed Unive rsity of PFIZER VACCINE 00:00:00 [facility] SARS-COV-2 COVID-19 2021-08-26 Completed Unive rsity of PFIZER VACCINE 00:00:00 [facility] SARS-COV-2 COVID-19 2021-08-26 Completed Unive rsity of PFIZER VACCINE 00:00:00 [facility] Vital Signs Vital Name Observation Time Observation Value Comments Source Systolic blood 2022-01-06 117 mm[Hg] University of pressure 19:23:00 [facility] Diastolic blood 2022-01-06 74 mm[Hg] University o f pressure 19:23:00 [facility] Heart rate 2022-01-06 80 /min University 19:23:00 [facility] Body temperature 2022-01-06 36.78 [place] University of 19:23:00 [facility] Respiratory rate 2022-01-06 18 /min University of 19:23:00 [facility] Body height 2022-01-06 170.2 cm University of 19:23:00 [facility] Body weight 2022-01-06 57.153 kg University of 19:23:00 [facility] BMI 2022-01-06 19.73 kg/m2 University of 19:23:00 [facility] Oxygen saturation 2022-01-06 96 /min University of in Arterial blood 19:23:00 [facility] by Pulse oximetry Branch Systolic blood 2021-11-07 132 mm[Hg] University of pressure 14:35:00 [facility] Diastolic blood 2021-11-07 81 mm[Hg] University o f pressure 14:35:00 [facility] Heart rate 2021-11-07 91 /min University of 14:35:00 [facility] Body height 2021-11-07 170.2 cm University of 14:35:00 [facility] Body weight 2021-11-07 60.419 kg University of 14:35:00 [facility] BMI 2021-11-07 20.86 kg/m2 University of 14:35:00 [facility] Oxygen saturation 2021-11-07 97 /min University in Arterial blood 14:35:00 [facility] by Pulse oximetry Branch BP Systolic 2018-08-26 125 mm[Hg] Location: [facility] 10:05:00 Position: Sitting BP Diastolic 2018-08-26 74 mm[Hg] Location: Lucía; [facility] 10:05:00 Position: Sitting Height 2018-08-26 67 [in_us] [facility] 10:05:00 Weight 2018-08-26 130.1875 [lb_av] [facility] 10:05:00 Body Mass Index 2018-08-26 20.39 kg/m2 [facility] Calculated 10:05:00 Heart Rate 2018-08-26 63 /min Location: L [facility] 10:05:00 Brachial Artery; BP Systolic 2018-08-09 162 mm[Hg] Location: LUE; [facility] 13:43:00 Position: Sitting BP Diastolic 2018-08-09 83 mm[Hg] Location: LUE; [facility] 13:43:00 Position: Sitting Height 2018-08-09 67 [in_us] [facility] 13:43:00 Weight 2018-08-09 131.375 [lb_av] [facility] 13:43:00 Body Mass Index 2018-08-09 20.58 kg/m2 [facility] Calculated 13:43:00 Heart Rate 2018-08-09 60 /min Location: L [facility] 13:43:00 Radial; Procedures Procedure Date / Time Performing Clinician Source Performed CBC WITH DIFF 2021-11-07 16:37:[address] [facility] [[facility]] EMG 2018-09-09 00:00:00 [facility] EMG/NCS-Arm 2018-08-27 00:00:00 [facility] [[facility]] LIPID PANEL 2018-08-26 00:00:00 [facility] [[facility]] HEMOGLOBIN A1c 2018-08-26 00:00:[address] Head/Neck CTA 38026 2018-08-26 00:00:00 [facility] MRI Brain wo contrast 2018-08-26 00:00:00 [facility] [address] History Of Prior [facility] Surgery History of Aortic Valve [facility] Replacement Plan of Care Planned Activity Planned Date Details Comments Source Diagnostic Test Pending 2018-09-09 00:00:00 [UT[facility]] EMG [code = [facility] [[facility]] EMG] Diagnostic Test Pending 2018-09-09 00:00:00 [[facility]] EMG [code = [facility] [[facility]] EMG] Diagnostic Test Pending 2018-08-27 00:00:00 EMG/NCS-Arm [code = [facility] EMG/NCS-Arm] Diagnostic Test Pending 2018-08-27 00:00:00 EMG/NCS-Arm [code = [facility] EMG/NCS-Arm] Encounters Start End Encounter Admission Attending Care Care Encounter Source Date/Time Date/Time Type Type Clinicians Facility Department ID 2021-11-11 Outpatient [facility] [id number] [place] 22:52:25 [id number] [facility] 2021-05-16 Outpatient DOMINIQUE BENDER CAR 7509 TW 08:26:40 KALEN 2021-05-07 Outpatient [id number] 376B-D Memoria 14:21:38 [id number] 08-4654-A4B D06-4914- A l -S4W5-3Z1 [id number] [id number] Rosalio [id number] C5B 4CCC5B 2021-05-06 Outpatient [id number] BA38 F4B1-1 Memoria 13:52:36 12EC-46C8 EC-15K0-S71 2EC-46C8- A l -T66N-2M9 E-3N22P4PP5 00E-0C99E4 Rosalio [id number] B24 EF5B24 2021-04-29 Outpatient [id number] CA1D-D Memoria 13:17:24 X9NB-5BYE AC-4ABC-A54 3AC-4ABC- A l -X614-HF0 [id number]-[id number] 548-RI465A Rosalio [id number] [id number] 2021-04-21 Outpatient [id number] CA63 3CAF-C Memoria 17:13:25 CEFC-4E6D FC-2P9N-IE7 EFC-4E6D- A l -RE49-M73 [id number] Y95-[id number] Rosalio [id number] 5F9 [id number] 2021-01-31 Outpatient DOMINIQUE JANG MHTW 7508 [facility] 08:42:11 [facility] 2022-10-13 2022-10-13 Outpatient ISRAEL INTERIANO [facility] [id number] Univers 11:00:00 11:00:00 BRYCE riveray o f [facility] 2022-01-30 2022-01-30 [facility] [id number] 3P-20 Univers 14:15:00 14:15:00 ABILIO [id number] [facility] 2022-01-30 2022-01-30 [facility] [id number] Univers 14:15:00 14:15:00 ABILIO [facility] 2022-01-26 2022-01-26 [facility] 1.2.840.114 [id number] Univers 00:00:00 00:00:00 [facility] 350.1.13.10 itmary [facility] 4.2.7.2.686 Anuj as LYNETTE?BLEA [id number] Ak applewy MARYJANE 2 [facility] OFFICE [facility] 2022-01-25 2022-01-25 Outpatient [facility] [id number] 33P-20 Univers 14:40:00 14:40:00 DESHAWN [id number] [facility] 2022-01-25 2022-01-25 [facility] [id number] Univers 14:40:00 14:40:00 DESHAWN [facility] 2022-01-24 2022-01-24 Telephone [facility] 1.2.840.114 [id number] Univers 00:00:00 00:00:00 Deshawn WEBER 350.1.13.10 i ty [facility] [id number] [address] 2022-01-23 2022-01-23 Patient [facility] 1.2.840.114 [id number] Univers 00:00:00 00:00:00 Outreach Lucy WEBER 350.1.13.10 isidoro [facility] 4.[place] [id number] [address] 2022-01-23 2022-01-23 [facility] 1.2.840.114 [id number] Univers 00:00:00 00:00:00 Deshawn GUS 350.1.13.10 i ty of [facility] 4.2.7.2.[place] [id number] Ak apple[address] 2022-01-23 2022-01-23 Telephone [facility] 1.2.840.114 [id number] Univers 00:00:00 00:00:00 Deshawn MINESHHERMINIA 350.1.13.10 i ty of [facility] 4.2.7.2.[place] [id number] Ak apple[address] 2022-01-19 2022-01-19 Telephone [facility] 1.2.840.114 [id number] Univers 00:00:00 00:00:00 Deshawn WEBER 350.1.13.10 i ty of [facility] 4.2.7.2.[place] [id number] [address] 2022-01-12 2022-01-12 Outpatient R NICK [facility] [id number] Univers 14:20:00 15:33:23 BRYCE welch [facility] 2022-01-06 2022-01-06 Office [facility] 1.2.840.114 [id number] Univers 14:00:00 14:59:28 Visit Deshawn WEBER 350.1.13.10 i ty of [facility] 4.2.7.2.[place] [id number] [address] 2021-11-16 2021-11-16 Outpatient R OREN [facility] [id number] Univers 14:45:00 14:45:00 ABILIO chaudhry [facility] 2021-11-07 2021-11-07 Office [facility] 1.2.840.114 [id number] Univers 09:30:00 10:13:00 Visit [facility] 350.1.13.10 it y of GUS 4.2.7.2.686 Anuj as LYNETTE?BLEA [id number] Ak applewy MARYJANE [address] [place] [address] OFFICE [facility] 2021-05-22 2021-05-23 Outpatient E JENNIFER T MED [id number] MHTW 19:19:00 17:25:00 NAVA 2021-05-16 2021-05-19 Inpatient Lois FOOTE, T MED 7510 TW 12:36:00 17:07:00 KRYSTIN 2021-05-13 2021-05-13 EXT [facility] OP Shay, EXT MSRDP 1.2.840.114 1 [id number] [place] 00:00:00 00:00:00 Krystin LOCATION 350.1.13.58 [facility] 9.2.7.2.686 [id number] 2021-05-06 2021-05-07 Outpatient MARY, [place] [id number] [place] 00:00:00 00:00:00 AHMED 313 Method i 2021-04-29 2021-04-29 Emergency BRANDY, [place] [address] [id number] [place] 00:00:00 00:00:00 ALEX 158 Method i 2021-04-21 2021-04-23 Outpatient CARLA [facility] [id number] [place] 00:00:00 00:00:00 INDERJIT, 794 Metho di IADARA 2021-03-05 2021-03-06 Outpatient AWOBOKUN, [place] [address] [id number] [place] 00:00:00 00:00:00 OLUYEMISI 225 Meth hernán 2021-01-28 2021-01-28 Outpatient [facility] [id number] [place] 00:00:00 00:00:00 858 Method i 2021-01-06 2021-01-06 Outpatient CHAD, RILEY [facility] [id number] [place] 00:00:00 00:00:[address] 2021-01-03 2021-01-03 Outpatient Elders, [facility] [id number] [facility] 08:30:00 08:30:00 Paolo 68 [facility] 2020-10-29 2020-10-29 Inpatient [facility] BUBBA [id number] [facility] 12:12:00 14:49:50 80 [facility] 2020-10-28 2020-10-28 Outpatient [facility] [id number] [place] 00:00:00 00:00:[address] 2020-07-31 2020-07-31 Outpatient LAINE, MHTW MHTW 7507 MHTW 08:00:00 23:59:00 BRICE 2020-03-23 2020-06-23 Inpatient [facility] BUBBA [id number] [facility] 20:51:00 00:43:59 35 [facility] 2020-06-11 2020-06-14 Inpatient [facility] BUBBA [id number] [facility] 13:00:00 08:05:51 70 [facility] 2019-12-29 2019-12-29 Outpatient Germaine, [facility] ENDO [id number] [facility] 10:30:00 10:30:00 Ilyas [id number] [facility] 2018-08-26 2018-08-26 DOTTY [facility] [id number] [place] 10:00:00 10:00:00 t; Wero DELGADO i, M.D. ans LAUREN, M.D. 2018-08-09 2018-08-09 DOTTY Mary UTP [id number] [place] 12:30:00 12:30:00 t; JUANA, CLINIC Phys ici CLINIC ans 2018-08-09 2018-08-09 DOTTY Verduzco [id number] [place] 11:00:00 11:00:00 t; LILA MASON Phy sici ECHOII ans 2018-04-12 2018-04-12 AppointDOTTY Jiménez UTP [id number] [place] 11:00:00 11:00:00 t; BRAD FRANCO, PATIENT CASE MANAGER Ph ysici BRAD, PATIENT CASE MANAGER ans 2017-10-12 2017-10-12 AppointDOTTY Monroy UTP [id number] [place] 10:30:00 10:30:00 t; JUANA, CLINIC Phys ici CLINIC ans 2017-08-09 2017-08-09 DOTTY Rg UTP [id number] [place] 14:45:00 14:45:00 t; LEO SEPULVEDA, Phys Osito Stokes M.D. 2017-08-09 2017-08-09 DOTTY Verduzco UTP [id number] [place] 14:00:00 14:00:00 t; MARLON, ECHOII Phy sici ECHOII ans 2017-06-22 2017-06-22 Appointmen VALVE, UTP UTP [id number] [place] 09:45:00 09:45:00 t; VALVE, CLINIC Phys ici CLINIC ans 2017-06-08 2017-06-08 Appointmen VALVE, UTP UTP [id number] [place] 11:45:00 11:45:00 t; VALVE, CLINIC Phys ici CLINIC ans 2017-06-08 2017-06-08 Appointmen MARLON, UTP UTP [id number] UT 11:30:00 11:30:00 t; MARLON, ECHO1 Phy sici ECHO1 ans Results Test Description Test Time Test [...] L [Au tomated message] The system which ge [...] 32.0 g/dL 31.2-35.0 RDW-SD (test code = 66567-5) 46.4 fL 38.5-51.6 RDW-CV (test code = 788-0) 12.3 % 12.1-15.4 PLT (test code = 777-3) See_Comment [Au tomated message] The system which ge nerated this result transmit jared reference range: 150 - 32 8 10*3/?L. The reference range was not used to interpret th is result as normal/abnormal . MPV (test code = 29046-8) 9.8 fL 9.8-13.0 NRBC/100 WBC (test code = See_Comment [ Automated message] The [id number]) system which ge nerated this result transmit jared reference range: 0.0 - 10 .0 /100 WBCs. The reference r lexie was not used to interpr et this result as normal/abnor mal. NRBC x10^3 (test code = <0.01 See_Comment [Au tomated message] The 1325150472) system which ge nerated this result transmit jared reference range: 10*3/?L. The reference range was not u sed to interpret this result as normal/abnormal . GRAN MAT (NEUT) % (test code 78.5 % = 770-8) IMM GRAN % (test code = 0.40 % 8409690803) LYMPH % (test code = 736-9) 14.2 % MONO % (test code = 5905-5) 5.2 % EOS % (test code = 713-8) 1.0 % BASO % (test code = 706-2) 0.7 % GRAN MAT x10^3(ANC) (test 7.74 10*3/uL 1.99-6.95 H code = 5891682346) IMM GRAN x10^3 (test code = 0.04 10*3/uL 0.00-0.06 9404132129) LYMPH x10^3 (test code = 1.40 10*3/uL 1.09-3.23 731-0) MONO x10^3 (test code = 0.51 10*3/uL 0.36-1.02 742-7) EOS x10^3 (test code = 0.10 10*3/uL 0.06-0.53 711-2) BASO x10^3 (test code = 0.07 10*3/uL 0.01-0.09 704-7) Lab Interpretation (test Abnormal code = 54318-3) [facility] ([facility]) RNA [Presence] in Respiratory specimen by MOHINDER with probe [id number] 04:39:02 Test Item Value Reference Range Interpretation Comments SARS-CoV-2 (COVID-19) RNA Not detected Not-Detected [Presence] in Respiratory specimen by MOHINDER with probe detection (test code = 08265-9) Whether patient is employed in a healthcare setting (test code = 42537-8) Whether the patient has symptoms related to condition of interest (test code = 74500-5) Patient was hospitalized because of this condition (test code = 91559-3) Whether the patient was admitted to intensive care unit (ICU) for condition of interest (test code = 49776-9) Whether patient resides in a congregate care setting (test code = 51460-8) SARS-CoV-2 (COVID-19) RNA [Presence] in Respiratory specimen by MOHINDER with probe [id number] 04:15:33 Test Item Value Reference Range Interpretation Comments SARS-CoV-2 (COVID-19) RNA Not detected Not-Detected [Presence] in Respiratory specimen by MOHINDER with probe detection (test code = 03511-1) Whether patient is employed in a healthcare setting (test code = 15329-7) Whether the patient has symptoms related to condition of interest (test code = 45541-9) Patient was hospitalized because of this condition (test code = 20605-3) Whether the patient was admitted to intensive care unit (ICU) for condition of interest (test code = 34133-7) Whether patient resides in a congregate care setting (test code = 74800-6) - CT UP EXTREM W/O CONT [id number] 09:13:00 [facility]ITY [facility]AR[facility] : 1945 Sex: M Patient Name: TRINITY GARZA Unit No: [id number] EXAMS: CPT CODE: [id number] CT UP EXTREM W/[place] [address] EXAM: - CT UP EXTREM W/O CONT [...] to 7 mm in size. There is ufnt-cz-lhus appearance was subchondral sclerosis. The humeral head [...] CTDI: 28.33 DLP: 646.17 Trnscrpt: 01/03/2021 (912) AshleyR.CB5 508 Imaging NAME: TRINITY GARZA [address] [place] [address] Blvd PHYS: Paolo Panchal MD [place], [place] : 1945 AGE: 75 SEX: M [id number] LOC: [email or web address] PHONE #: [phone] EXAM DATE: 01/03/2021 STATUS: REG CLI FAX #: [phone] RAD #: D/C DT PAGE 1 Signed Report Patient Name: TRINITY GARZA Unit No: [id number] EXAMS: CPT CODE: [id number] CT UP EXTREM W/[place] [address] <Continued> Orig Print D/T: S: 01/03/2021 (7908) 088 Imaging NAME: TRINITY GARZA [address] [place] [address] PHYS: Paolo Panchal [place], [place] : 1945 AGE: 75 SEX: M [id number] LOC: BSeanIM508 PHONE #: [phone] EXAM DATE: 01/03/2021 STATUS: REG CLI FAX #: [phone] RAD #: D/C DT PAGE 2 Signed Report- XR C-SPINE 2-3 [id number] 18:02:00 [facility] TRINITY GARZA : 1945 Sex: M FAX: Cristo Camarena MD [phone] [place]: E St: REG FAX: Yosi TAVARES, GENERIC FOR EDM FAX: Rodney Santoro [phone] Patient Name: TRINITY GARZA Unit No: [id number] EXAMS: CPT CODE: [id number] XR C-SPINE 2-3 VIEWS 53285 Location: P9Bcoutqli spine x-ray exam: 5 views conducted on 10/29/20 with flexion and extension imaging acquired Comparison exam: 10/29/20 CT examination of the cervical spine. CLINICAL HISTORY: Assess for instability. Neck pain. Fusion identified again from C4 to T1. 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 CC: [facility] GENERIC FOR EDM; Rodney Santoro NP Dictated Date/Time: 10/29/2020 (1801)Technologist: Milagros Enciso Transcribed Date/Time: 10/29/2020 (1801) By: [email or web address] Orig Print D/T: S: 10/29/2020 (1804) PETER Forrester NAME: TRINITY GARZA [address] PHYS: Rodney [place], [place] [address] : 1945 AGE: 75 SEX: M LOC: KatlinSeanHARLEY PHONE #: [phone] EXAM DATE: 10/29/2020 STATUS: REG ER FAX #: [phone] RAD NO: DC Dt: PAGE 1 Signed Report- CT C-SPINE W/O CONT 2020-10-29 14:29:00 [facility]ITY [facility]AR[facility] : 1945 Sex: M Patient Name: TRINITY GARZA Unit No: [id number] EXAMS: CPT CODE: [id number] CT C-SPINE W/O CONT 99257 EXAMINATION: - CT C-SPINE W/O CONT COMPARISON: [...] clear.. IMPRESSION: PETER Forrester NAME: TRINITY GARZA [address] [place] [address] PHYS: JESUS - Rodney Santoro, [place] [address] : 1945 AGE: 75 SEX: M LOC: B.ERS PHONE #: [phone] EXAM DATE: 10/29/2020 STATUS: REG ER FAX #: [phone] RAD #: D/C DT PAGE 1 Signed Report (CONTINUED) Patient Name: TRINITY GARZA Unit No: [id number] EXAMS: CPT CODE: [id number] CT C-SPINE W/O CONT 04845 <Continued> Postsurgical and degenerative changes in the cervical spine as detailed above. Anterior fixation plate is discontinuous at the inferior C6 level. It appeared contiguous on the 2013 intraoperative x-rays. Whether this represents hardware failure or changes related to interval revision of the operative site is unclear. at 1429 Reported and signed by: Breana Floyd MD CC: EDDOC GENERIC FOR EDM; Rodney Santoro PATIENT CASE MANAGER Dict ated Date/Time: 10/29/2020 (1429) Technologist: Acacia James CTDI: 13.73 DLP: 282.34 Trnscrpt: 10/29/2020 (1425) AshleyR.AG38 ALFONZORiana Usama NAME: TRINITY GARZA [address] [place] [address] PHYS: JESUS - [place], [place] [address] : 1945 AGE: 75 SEX: M LOC: Katlin.ERS PHONE #: [phone] EXAM DATE: 10/29/2020 STATUS: REG ER FAX #: [phone] RAD #: D/CDT PAGE 2 Signed Report Patient Name: TRINITY GARZA Unit No: [id number] EXAMS: CPT CODE: [id number] CT C-SPINE W/O CONT 47259 <Continued> Orig Print D/T: S: 10/29/2020 (1432) [facility] Us[facility] NAME: TRINITY GARZA [address] [place] [address] Blvd PHYS: RUSTY. - Jesus[place]Rod[place], [place] [address] : 1945 AGE: 75 SEX: M ACCT NO: B [id number] LOC: GiselERS PHONE #: [phone] EXAM DATE: 10/29/2020 STATUS: REG ER FAX #: [phone] RAD #: D/C DT PAGE 3 Signed [id number] 15:24:00 Test Item Value Reference Range Interpretation [...] change s in troponin levelscharacter istic of HI. ADD-ONCOMPREHENSIVE METABOLIC [id number] 14:42:00 Test Item Value Reference Range Interpretation [...] 1 NORMAL code = LIPINDEX) MG Index/DL [id number] 14:42:00 Test Item Value Reference Range Interpretation Comments LIPASE (test code = LIP) 141 Unit/L 114-286 N COMPREHENSIVE METABOLIC [id number] 14:39:00 Test Item Value Reference Range Interpretation [...] <50 MG 1 NORMAL = LIPINDEX) Index/DL [id number] 14:39:00 Test Item Value Reference Range Interpretation Comments LIPASE (test code = LIP) Unit/L 114-286 - XR CHEST 1 [id number] 14:36:00 [facility] TRINITY [facility]ARZA : 1945 Sex: M FAX: Yolanda Olea [phone] [place]: Lucía St: PRE Patient Name: TRINITY GARZA Unit No: [id number] EXAMS: CPT CODE: [id number] XR CHEST 1 V 03880 Dictation location: S17. CHEST, FRONTAL VIEW HISTORY: [...] By: [email or web address] Orig Print D/T: S: 06/11/2020 (2867) [facility] NAME: TRINITY GARZA [address] [place] [address] PHYS: Yolanda [place], [place] [address] : 1945 AGE: 75 SEX: M LOC: OSMAN PHONE #: [phone] EXAM DATE: 06/11/2020 STATUS: PRE ER FAX #: [phone] RAD NO: DC Dt: PAGE 1 Signed ReportURINALYSIS [id number] 14:31:00 Test Item Value Reference Range Interpretation [...] = RARE /LPF NONE MUCU) CBC W/AUTO [id number] 14:23:00 Test Item Value Reference Range Interpretation [...] K/mm3 0.00-0.05 N NRBC#) Coronavirus 2018 nCoV [id number] 22:18:00 Test Item Value Reference Range Interpretation Comments Coronavirus 2018 nCoV Bedside (test Negative Neg code = [id number]) Testing Criteria: [id number] 22:12:00 Test Item Value Reference Range Interpretation Comments ALCOHOL (test code = 184 MG/DL 0-10 H MEDICAL ALCOHOL ALC) RESULTS. SITE W PREPPED WITH BE TADINE. <10 MG/DL ARE CONSIDERED NEGA TIVE. >400 MG/DL MAY BE FATAL.RESULTS F OR MEDICAL USE ONL Y. NOT TO BE USED FOR FORENSIC PURPOSES. BASIC METABOLIC [id number] 22:05:00 Test Item Value Reference Range Interpretation [...] MG 1 NORMAL code = LIPINDEX) Index/DL [id number] 22:05:00 Test Item Value Reference Range Interpretation [...] change s in troponin levelscharacter istic of HI. BASIC METABOLIC [id number] 22:01:00 Test Item Value Reference Range Interpretation [...] MG 1 NORMAL code = LIPINDEX) Index/DL [id number] 22:01:00 Test Item Value Reference Range Interpretation Comments TROPONIN-I (test code = TROPI) NG/ML 0.000-0.045 CBC W/O [id number] 21:32:00 Test Item Value Reference Range Interpretation [...] 7.6-10.4 N MPV) - XR CHEST 1 [id number] 21:29:00 FAX: Yobany Roberson MD [phone] [place]: E St: REG Patient Name: TRINITY GARZA Unit No: [id number] EXAMS: CPT CODE: [id number] XR CHEST 1 V 61785 CHEST X-RAY 1 VIEW Dictation Location: N13 [...] Cardiomegaly, cardiac pacemaker, cardiac valve surgery. at 2129 Reported and signed by: Vidya Medellin M.D. CC: Yobany Roberson MD Dictated Date/Time: 03/23/2020 (2128)Technologist: Lovely Cuello Transcribed Date/Time: 03/23/2020 (2128) By: Sayra Orig Print D/T: S: 03/23/2020 (2131) PETER Forrester NAME: TRINITY GARZA [address] PHYS: BENNY.01 - Yobany Roberson [place], [place] [address] :1945 AGE: 75 SEX: M LOC: B.ERS PHONE #: [phone] EXAM DATE: 03/23/2020 STATUS: REG ER FAX #: [phone] RAD NO: DC Dt: PAGE 1 Signed ReportMRI Brain wo contrast [id number] 10:00:00EXAM: MRI BRAIN WITHOUT CONTRASTDATE: 09/26/2018 10:00 [...] 14:12Electronically Signed by: Jo Espinoza MD 09/26/1913:17FINAL REPORTUT PhysiciansTobacco Use Screening 2018-08-26 10:00:00 Test Item Value Reference Range Interpretation Comments Completed (test code = Completed) DONE [facility]
--- NOTE | 2022-02-01 13:47 | RAD REPORT ---
EXAM DESCRIPTION: CT - Ct Stroke Brain Wo Cont - 02/01/2022 1:36 pm CLINICAL HISTORY: AMS COMPARISON: Head Brain Wo Cont dated 11/30/2021 TECHNIQUE: Axial 5 millimeter thick images of the head were obtained without IV contrast. All CT scans are performed using dose optimization technique as appropriate and may include automated exposure control or mA/KV adjustment according to patient size. FINDINGS: A 4 centimeter size intraparenchymal hematoma is present in the right frontal lobe. Areas of diminished attenuation along the superior aspect of this intraparenchymal finding could be an unde rlying mass or area of hyperacute blood. Small amount of subarachnoid hemorrhage is present along the right sylvian fissure along the posterior margin of the mass. There is extensive intraventricular hemorrhage. Areas of hypodensity within the lateral ventricles ma y represent areas of hyperacute blood. All ventricles are filled and there is enlargement of the vent ricular system relative to the amount of atrophy indicating ventricular obstruction. Approximately 3 mm of right to left midline shift is present. Elsewhere the brain parenchyma shows no cortical edema or sulcal effacement. Underlying atrophy and chronic ischemic changes are relatively mild. Arterial calcifications are present. No extra-axial fluid collections. Visualized portions of the mastoid air cells, paranasal sinuses, and orbits are unremarkable. Findings telephoned to Dr. Gloria [id number] hours. IMPRESSION: Right frontal lobe intraparenchymal hematoma approximately 4 cm in size. Areas of hypode nsity within the hematoma could represent underlying mass or hyperacute blood. Intraventricular extension of hemorrhage with all ventricles filled with blood. Latif ventricular enlar gement is present indicating obstruction. Areas of hypodensity within the lateral ventricles could be hyperacute blood. Approximately 3 mm of right to left midline shift. Subarachnoid hemorrhage is present in the right sylvian fissure.
[2022-02-01] MEDS ORDERED: RSI MEDICATION KIT IV ONE (13:51)
[2022-02-01 13:57] LABS: Absolute Lymphocytes (CBC) 3.7 K/uL (0.7-4.9); Hematocrit 31.5 % (39.6-49.0); Lymphocytes % 16.1 % (15.3-44.8); MPV 7.8 fL (7.6-11.3); RBC Red Blood Cell Count 3.39 M/uL (4.33-5.43)
[2022-02-01 13:58] LABS: Protime INR 1.41
[2022-02-01 14:06] LABS: Potassium 3.4 mmol/L (3.5-5.1)
--- NOTE | 2022-02-01 14:13 | ER ---
Nurse's Notes [facility] Name: Иван Vickers Age: 76 yrs Sex: Male : 1945 Arrival Date: 02/01/2022 Time: 13:26 Bed 4 Private MD: Diagnosis: Hemorrhagic stroke Presentation: 02/01 13:40 Chief complaint: EMS states: From [facility] assisted. [facility] staff stated he ww said he had a headache and they administered Clonidine and witnessed patient become unresponsive in the bed. EMS was called at 12:40. Patient unresponsive with pinpoint pupils. EMS gave 2mg of Narcan. Ebola Screen: Unable to complete the Ebola screening because:. An acute neurological deficit is present. The patients blood glucose was checked before arriving to the hospital and was found to be normal. Initial Sepsis Screen: Does the patient meet any 2 criteria? No. Patient's initial sepsis screen is negative. Does the patient have a suspected source of infection? No. Patient's initial sepsis screen is negative. Risk Assessment: Do you want to hurt yourself or someone else? Patient reports no desire to harm self or others. Onset of symptoms was February 01, 2022. 13:40 Method Of Arrival: EMS: [facility] ww 13:40 Acuity: RENALDO 2 ww 14:50 Coronavirus screen: At this time, the client does not indicate any symptoms associated jd3 with coronavirus-19. Triage Assessment: 13:44 The onset of the patients symptoms was less than three hours ago. General: Appears ww unresponsive. Behavior is unresponsive. Pain: Unable to use pain scale. Patient is unresponsive. Neuro: Newton Agitation-Sedation Scale (RASS): -5 Unarousable Level of Consciousness is unresponsive. Cardiovascular: Patient's skin is warm and dry. Respiratory: Airway is patent Respiratory effort is even, unlabored. GI: No signs and/or symptoms were reported involving the gastrointestinal system. 14:30 The onset of the patients symptoms was February 01, 2022 at 12:40. jd3 14:30 Neuro: Reports unresponsive. jd3 Stroke Activation: Physician: Stroke Attending; Name: ; Notified At: ; Arrived At: Physician: Chief Stroke Resident; Name: ; Notified At: ; Arrived At: Physician: Stroke Resident; Name: ; Notified At: ; Arrived At: Physician: ED Attending; Name: Dr. Gloria; Notified At: ; Arrived At: Physician: ED Resident; Name: ; Notified At: ; Arrived At: Historical: - PMHx: 13:44 aortic valve problem; Arthritis; Atrial fibrillation; Dementia; Hypertensive disorder; ww Pacemaker; - Immunization history:: Adult Immunizations unknown. - Social history:: Smoking status: unknown. Screenin:47 Abuse screen: no signs noted of abuse. Nutritional screening: unable to access . jd3 Tuberculosis screening: unable to access. Fall Risk Total Posadas Fall Scale indicates No Risk (0-24 pts). Assessment: 13:39 Reassessment: unable to perform accurate NIH due to pt being unresponsive. jd3 13:40 VAN Scoring: Arm Drift: Flaccid/no antigravity Aphasia: Patient exhibits both jd3 expressive and receptive aphasia. Provider notified of +VAN scoring. unknown The patient is not alert and/or unable to follow commands. Bedside swallow screen discontinued. Patient kept NPO until cleared by Speech Therapy or Physician. unresponsive unresponsive unresponsive unresponsive unresponsive unresponsive The patient failed the bedside swallow screening. The patient will be kept NPO until cleared by Speech Therapy or Physician. Provider notified of bedside swallow screening results: Luis Alberto Gloria MD. T-PA (Activase) Screening: Contraindications: Intracranial hemorrhage and its risk factor and suspicion of subarachnoid bleed: Yes. General: Appears distressed, Behavior is unresponsive. Pain: Unable to use pain scale. Patient is unresponsive. Neuro: Newton Agitation-Sedation Scale (RASS): -5 Unarousable Level of Consciousness is unresponsive, Pupils are non-reactive, pinpoint. Cardiovascular: Heart tones present Capillary refill < 3 seconds Patient's skin is warm and dry. Rhythm is ventricular pacer. Respiratory: Airway is patent Respiratory effort is even, Respiratory pattern is regular, Breath sounds are clear bilaterally. 14:25 Reassessment: report given to Life flight team. jd3 14:30 Reassessment: report given to Iggy TOLBERT at [facility]. jd3 Vital Signs: 13:40 BP 156 / 87; Pulse 80; Resp 11; Pulse Ox 100% on 15% Non-rebreather mask; ww 13:57 BP 97 / 73; Pulse 85; Resp 18 S; Pulse Ox 100% on ETT ambu; jd3 14:09 Weight 58 kg; jd3 14:30 BP 146 / 89; Pulse 83; Resp 18 A; Pulse Ox 100% on ETT vent; jd3 NIH Stroke Scale Scores: 13:40 NIHSS Score: 40 jd3 ED Course: 13:26 Patient arrived in ED. ww 13:27 Silvina Meyers RN is Primary Nurse. ww 13:28 Luis Alberto Gloria MD is Attending Physician. kdr 13:38 CT Stroke Brain w/o Contrast In Process Unspecified. EDMS 13:44 Triage completed. ww 13:44 EKG done, by ED staff, reviewed by Luis Alberto Gloria MD. mb7 13:44 Arm band placed on Patient transported to CT scan. ww 13:45 Patient has correct armband on for positive identification. Placed in gown. Bed in low jd3 position. Call light in reach. Side rails up X2. Client placed on continuous cardiac and pulse oximetry monitoring. NIBP monitoring applied. staff anesthesiologist on. Pulse ox on. NIBP on. 13:53 Maintain EMS IV. Dressing intact. Good blood return noted. Site clean \T\ dry. Gauge \T\ karla 3 site: 20 G left AC. IV is patent, is intact, with fluids infusing freely, with good blood return, 20 G noted to the right AC. 14:21 Chest Single View In Process Unspecified. EDMS 14:38 Primary Nurse role handed off by Silvina Meyers RN jd3 14:38 Lobo Krueger RN is Primary Nurse. jd3 14:48 No provider procedures requiring assistance completed. Patient transferred, IV remains jd3 in place. Administered Medications: 13:53 Drug: Etomidate 20 mg Route: IVP; Site: left antecubital; jd3 14:30 Follow up: Response: No adverse reaction jd3 13:57 Drug: Rocuronium 50 mg Route: IVP; Site: left antecubital; jd3 14:30 Follow up: Response: No adverse reaction jd3 14:15 Drug: Mannitol 20% 1 g/kg Volume: 500 ml; Route: IV; Rate: calculated rate; Site: left [facility] antecubital; 14:53 Follow up: Response: No adverse reaction; IV Status: Infusion continued upon transfer jd3 14:21 Drug: Keppra (levETIRAcetam) 1000 mg Route: IV; Rate: calculated rate; Site: left [facility] antecubital; 14:53 Follow up: Response: No adverse reaction; IV Status: Infusion continued upon transfer jd3 Medication: 14:47 VIS not applicable for this client. jd3 Point of Care Testing: Blood Glucose: 13:45 Blood Glucose: 137 mg/dL; jd3 Ranges: Outcome: 14:12 ER care complete, transfer ordered by . kdr 14:30 Transferred by helicopter to [facility], [facility], Transfer form completed. jd3 X-rays sent w/ patient. 14:30 Condition: stable 14:30 Instructed on the need for transfer. 14:38 Patient left the ED. jd3 14:55 Patient left the ED. jd3 NIH Stroke Scale - NIH Stroke Score Date: 02/01/2022 Time: 13:40 Total Score = 40 1a. Level of Consciousness (LOC) - 3(Unresponsive) 1b. Level of Consciousness (LOC) (Month \T\ Age) - 2(Neither) 1c. LOC Commands (Open \T\ Closes Eyes/Roving Sizer) - 2(Neither) 2. Best Gaze (Lateral Gaze Paresis) - 2(Forced deviation) 3. Visual Field Loss - 3(Bilateral hemianopia) 4. Facial Palsy - 3(Complete paralysis) 5a. Left Arm: Motor (10-second hold) - 4(No movement) 5b. Right Arm: Motor (10-second hold) - 4(No movement) 6a. Left Leg: Motor (5-second hold - always test supine) - 4(No movement) 6b. Right Leg: Motor (5-second hold - always test supine) - 4(No movement) 7. Limb Ataxia (finger/nose \T\ heel/stephens - test with eyes open) - 2(Present in two limbs) 8. Sensory Loss (pinprick arms/legs/face) - 2(Severe to total loss) 9. Best Language: Aphasia (description/naming/reading) - 3(Mute, global aphasia) 10. Dysarthria (speech clarity - read or repeat words) - 9(Intubated) - Notes: intubated to protect airway with hemoragic bleed 11. Extinction and Inattention (visual/tactile/auditory/spatial/personal) - 2(Profound) Initials: jd3 Signatures: Dispatcher [employer] EDMS Luis Alberto Gloria MD MD kdr Davies, Jonathon, RN RN jd3 Juanita Del Rosario mb7 Silvina Meyers RN RN ww Corrections: (The following items were deleted from the chart) 14:17 14:04 In radiology for Chest Single View+RAD.RAD.BRZ. EDMS EDMS 14:51 14:51 The onset of the patients symptoms was February 01, 2022 at 12:45 j j 14:52 14:51 The onset of the patients symptoms was February 01, 2022 at 12:40 [place] [id number] 14:54 14:50 Condition: stable [place] [id number] 14:54 14:50 Transferred by helicopter to [facility], [facility], Transfer form jd3 completed. X-rays sent w/ patient. [facility] 14:50 Instructed on the need for transfer, miranda jean
--- NOTE | 2022-02-01 14:13 | EDPHYS ---
Physician Documentation [facility] Name: Иван Vickers Age: 76 yrs Sex: Male : 1945 Arrival Date: 02/01/2022 Time: 13:26 Bed 4 Private MD: ED Physician Luis Alberto Gloria HPI: 02/01 14:59 This 76 yrs old Male presents to ER via EMS with complaints of S/S of Possible Stroke. kdr 14:59 The patient's problem is reported as altered mental status, decreased responsiveness, kdr unresponsive. Onset: The symptoms/episode began/occurred suddenly, just prior to arrival. Duration: This was a single incident, The episode is continuous, the symptoms became persistent. Context: the episode(s) was witnessed, by the [facility] staff, symptoms became apparent Prior to arrival, occurred at a [facility] or assisted living facility, occurred while the patient was at rest, lying down. The symptoms are alleviated by nothing. The symptoms are aggravated by nothing. Associated signs and symptoms: The patient has no apparent associated signs or symptoms. Severity of symptoms: At their worst the symptoms were incapacitating in the emergency department the symptoms are unchanged. Patient's baseline: Baseline is unknown. The patient has not recently seen a physician. Historical: - PMHx: 13:44 aortic valve problem; Arthritis; Atrial fibrillation; Dementia; Hypertensive disorder; ww Pacemaker; - Immunization history:: Adult Immunizations unknown. - Social history:: Smoking status: unknown. ROS: 14:59 Constitutional: Patient is unable to give a review of systems secondary to being kdr obtunded Eyes: Negative for injury, pain, redness, and discharge, Neck: Negative for injury, pain, and swelling, Cardiovascular: Negative for chest pain, palpitations, and edema, Respiratory: Negative for shortness of breath, cough, wheezing, and pleuritic chest pain. 14:59 Unable to obtain ROS due to altered mental status, obtunded state. Exam: 14:59 Constitutional: This is a well developed, well nourished patient who is awake, alert, kdr and in no acute distress. Head/Face: Normocephalic, atraumatic. Neck: Trachea midline, no thyromegaly or masses palpated, and no cervical lymphadenopathy. Supple, full range of motion without nuchal rigidity, or vertebral point tenderness. No Meningismus. Chest/axilla: Normal chest wall appearance and motion. Nontender with no deformity. No lesions are appreciated. Cardiovascular: Regular rate and rhythm with a normal S1 and S2. No gallops, murmurs, or rubs. Normal PMI, no JVD. No pulse deficits. Respiratory: Lungs have equal breath sounds bilaterally, clear to auscultation and percussion. No rales, rhonchi or wheezes noted. No increased work of breathing, no retractions or nasal flaring. Abdomen/GI: Soft, non-tender, with normal bowel sounds. No distension or tympany. No guarding or rebound. No evidence of tenderness throughout. Back: No spinal tenderness. No costovertebral tenderness. Full range of motion. Skin: Warm, dry with normal turgor. Normal color with no rashes, no lesions, and no evidence of cellulitis. MS/ Extremity: Pulses equal, no cyanosis. Neurovascular intact. Full, normal range of motion. 14:59 Eyes: Pupils: pinpoint, bilaterally. 14:59 Neuro: Orientation: unable to test, Patient is obtunded and does not respond to verbal or noxious stimuli. He has maintained his airway at this time with 100% saturation. 15:04 Radiologist reports: The patient has a right frontal lobe hematoma/hemorrhage with kdr significant bleeding into all ventricles including the fourth ventricle. There is mild ventricular enlargement with a 1 to 2 mm right to left shift. This information was given to me by Dr. Hackett Vital Signs: 13:40 BP 156 / 87; Pulse 80; Resp 11; Pulse Ox 100% on 15% Non-rebreather mask; ww 13:57 BP 97 / 73; Pulse 85; Resp 18 S; Pulse Ox 100% on ETT ambu; jd3 14:09 Weight 58 kg; jd3 14:30 BP 146 / 89; Pulse 83; Resp 18 A; Pulse Ox 100% on ETT vent; jd3 NIH Stroke Scale Scores: 13:40 NIHSS Score: 40 jd3 MDM: 14:12 Patient medically screened. kdr 15:05 Data reviewed: vital signs, nurses notes, lab test result(s), radiologic studies. kdr Counseling: I had a detailed discussion with the patient and/or guardian regarding: the historical points, exam findings, and any diagnostic results supporting the discharge/admit diagnosis, lab results, radiology results, the need to transfer to another facility, for higher level of care. 02/01 13:29 Order name: Basic Metabolic Panel kdr 02/01 13:29 Order name: CBC with Diff kdr 02/01 13:29 Order name: Protime (+inr); Complete Time: 14:01 [facility] 02/01 13:29 Order name: Ptt, Activated; Complete Time: 14:01 [facility] 02/01 13:29 Order name: CT Stroke Brain w/o Contrast; Complete Time: 14:01 [facility] 02/01 13:52 Order name: Glucose, Ancillary Testing; Complete Time: 14:01 EDND 02/01 13:29 Order name: EKG; Complete Time: 13:30 kdr 02/01 13:29 Order name: Accucheck; Complete Time: 14:03 [facility] 02/01 14:21 Order name: Chest Single View EDND 02/01 13:29 Order name: Cardiac monitoring; Complete Time: 14:03 [facility] 02/01 13:29 Order name: EKG - Nurse/Tech; Complete Time: 14:03 [facility] 02/01 13:29 Order name: IV Saline Lock; Complete Time: 14:03 [facility] 02/01 13:29 Order name: Labs collected and sent; Complete Time: 14:03 kdr 02/01 13:29 Order name: NPO; Complete Time: 14:05 [facility] 02/01 13:29 Order name: O2 Per Protocol; Complete Time: 14:05 [facility] 02/01 13:29 Order name: O2 Sat Monitoring; Complete Time: 14:05 [facility] 02/01 13:29 Order name: Stroke Swallow Screen; Complete Time: 14:05 [facility] Administered Medications: 13:53 Drug: Etomidate 20 mg Route: IVP; Site: left antecubital; jd3 14:30 Follow up: Response: No adverse reaction jd3 13:57 Drug: Rocuronium 50 mg Route: IVP; Site: left antecubital; jd3 14:30 Follow up: Response: No adverse reaction jd3 14:15 Drug: Mannitol 20% 1 g/kg Volume: 500 ml; Route: IV; Rate: calculated rate; Site: left [facility] antecubital; 14:53 Follow up: Response: No adverse reaction; IV Status: Infusion continued upon transfer jd3 14:21 Drug: Keppra (levETIRAcetam) 1000 mg Route: IV; Rate: calculated rate; Site: left [facility] antecubital; 14:53 Follow up: Response: No adverse reaction; IV Status: Infusion continued upon transfer jd3 Point of Care Testing: Blood Glucose: 13:45 Blood Glucose: 137 mg/dL; jd3 Ranges: Critical Glucose Levels:Adult <50 mg/dl or >400 mg/dl <40 mg/dl or >180 mg/dl Disposition Summary: 02/01/22 14:12 Transfer Ordered Transfer Location: [facility] kdr Reason: Higher level of care kdr Condition: Critical kdr Problem: new kdr Symptoms: are unchanged kdr Accepting Physician: Dr. Jo (Neuro ICU)(02/01/22 14:55) jd3 Diagnosis - Hemorrhagic stroke kdr Discharge Instructions: - Discharge Summary Sheet jd3 Forms: - Medication Reconciliation Form kdr - SBAR form jd3 NIH Stroke Scale - NIH Stroke Score Date: 02/01/2022 Time: 13:40 Total Score = 40 1a. Level of Consciousness (LOC) - 3(Unresponsive) 1b. Level of Consciousness (LOC) (Month \T\ Age) - 2(Neither) 1c. LOC Commands (Open \T\ Closes Eyes/Driller Operator) - 2(Neither) 2. Best Gaze (Lateral Gaze Paresis) - 2(Forced deviation) 3. Visual Field Loss - 3(Bilateral hemianopia) 4. Facial Palsy - 3(Complete paralysis) 5a. Left Arm: Motor (10-second hold) - 4(No movement) 5b. Right Arm: Motor (10-second hold) - 4(No movement) 6a. Left Leg: Motor (5-second hold - always test supine) - 4(No movement) 6b. Right Leg: Motor (5-second hold - always test supine) - 4(No movement) 7. Limb Ataxia (finger/nose \T\ heel/stephens - test with eyes open) - 2(Present in two limbs) 8. Sensory Loss (pinprick arms/legs/face) - 2(Severe to total loss) 9. Best Language: Aphasia (description/naming/reading) - 3(Mute, global aphasia) 10. Dysarthria (speech clarity - read or repeat words) - 9(Intubated) - Notes: intubated to protect airway with hemoragic bleed 11. Extinction and Inattention (visual/tactile/auditory/spatial/personal) - 2(Profound) Initials: jd3 Signatures: Dispatcher [employer] EDMS Luis Alberto Gloria MD MD kdr Davies, Jonathon RN RN jSilvina Kaufman RN RN ww Corrections: (The following items were deleted from the chart) 14:17 13:30 Chest Single View+RAD.RAD.BRZ ordered. EDMS EDMS 14:38 14:12 Dr. Jo (Neuro ICU) kdr jd3 14:55 14:38 Dr. Jo (Neuro ICU) jd3 jd3
[2022-02-01] MEDS ORDERED: MANNITOL 20% 500 ML IV ONE (14:16)
[2022-02-01] MEDS ORDERED: LEVETIRACETAM 500 MG/5 ML VIAL IV ONE (14:27)
[2022-02-01] MEDS ORDERED: NA CHLORIDE 0.9% 100 ML ONE (14:27)
--- NOTE | 2022-02-01 14:52 | RAD REPORT ---
EXAM DESCRIPTION: RAD - Chest Single View - 02/01/2022 2:21 pm CLINICAL HISTORY: POST INTUBATION COMPARISON: Chest Single View dated 11/30/2021; Chest Single View dated 09/21/2021; Chest Single View d ated 08/10/2021; Chest Single View dated 08/08/2021 FINDINGS: Lines: Endotracheal tube at the lower margin of the aortic arch in satisfactory position. Lungs: No evidence of edema or pneumonia. Pleural: No significant pleural effusions or pneumothorax. Cardiac: Aortic valve prosthesis. Pacemaker. Bones: No acute fractures. Other: IMPRESSION: Endotracheal tube in satisfactory position at the lower margin of the aortic arch. The l ungs are clear.
[2022-02-01 15:28] VITALS: O2SAT 100
[2022-02-01 15:32] VITALS: BP 146/89
[2022-02-01 18:54] LABS: Blood Morphology Comment NOT SEEN (NOT SEEN); Platelet Estimate ADEQ; White Blood Cell Scan OK (OK)
--- NOTE | 2022-02-01 19:16 | EKG ---
Test Date: 2022-02-01 Test Time: 13:39:40 [employer] Research Engineer: MB MEASUREMENT RESULTS: Intervals: Rate: 80 MT: 170 QRSD: 158 QT: 454 QTc: 523 [place]: P: MT: 170 QRS: -77 T: 93 INTERPRETIVE STATEMENTS: AV dual-paced rhythm Abnormal ECG Compared to ECG 11/30/2021 22:42:11 Left-axis deviation no longer present Left ventricular hypertrophy no longer present Myocardial infarct finding no longer present Electronically Signed On 02-01-22 19:15:40 CDT by Pj Mckee
== END 2022-02-01 14:55 | disposition short-term general hospital (02) ==
LOC: ER 13:21
DX: I62.9 Nontraumatic intracranial hemorrhage, unspecified (principal); R29.740 NIHSS score 40; I10 Essential (primary) hypertension; F03.90 Unspecified dementia, unspecified severity, without behavioral disturbance, psychotic disturbance, mood disturbance, and anxiety; I48.91 Unspecified atrial fibrillation; Z95.0 Presence of cardiac pacemaker
CPT/HCPCS: 93005; 85025; 80048; 36415; 85610; 82947; 85730; 70450; 71045; 94002; 94003; J1953